=== PATIENT | female | born 1950 | race Caucasian/White ===

== ENCOUNTER → 2016-02-28 07:21 | Day surgery (SDC) | payer BC ==
[~2016-02-28 07:21] MED LIST: Acetaminophen TAB* 325 MG PO PRN; Buffered Lidocaine 1% SYR 3ML* 3 ML/SYR SYRINGE INTRADERM ONE; Buffered Lidocaine 1% SYR 3ML* 3 ML/SYR SYRINGE ONE; Cyclopentolate 1% OPTH.SOL* 2 ML BTL ONE; Flurbiprofen 0.03% OPTH.SOL* 2.5 ML BTL ONE; Lidocaine 1% MPF* 2 ML VIAL ONE; Lidocaine 2% EPI 1:200000 MPF* 20 ML VIAL ONE; Midazolam* 1 MG/ML 2 ML VIAL (2 MG) ONE; Midazolam* 1 MG/ML 5 ML VIAL (5 MG) ONE; Neomycin/Polymy/Dex OPTH.SUSP* MAXITROL 0.1% 5 ML ONE; Phenylephrine 2.5% OPTH.SOL* 2 ML BTL ONE; Povidone Iodine 5% OPTH* 30 ML BTL ONE; Proparacaine 0.5% OPHTH.SOL* 15 ML BTL ONE; acetaZOLAMIDE TAB* 250 MG ONE; fentaNYL* 50 MCG/ML 2 ML VIAL (100 MCG VIAL) ONE
[2016-02-28 09:57] VITALS: BP 128/82
--- NOTE | 2016-02-28 12:08 | OP ---
DATE OF OPERATION: 02/28/2016 - [facility] DATE OF : 1950. SURGEON: John Valdes M.D. PREOPERATIVE DIAGNOSIS: Cataract right eye. POSTOPERATIVE DIAGNOSIS: Cataract right eye. OPERATIVE PROCEDURE: Phacoemulsification right eye with IOL. DESCRIPTION OF PROCEDURE: The patient was brought to the operating room after being given 1/2% Alcaine with epinephrine drops in the preoperative area. The eye was prepped and draped in the usual sterile fashion. Sterile drape and eyelid speculum were placed. Again, topical 1/2% Alcaine with epinephrine was given. A paracentesis incision was made at the 9 o'clock position with the No.75 blade. Clear cornea incision 2.2 x 2.2-mm was created at the 12 o'clock position starting at the anterior limbus using the 2.2-mm keratome. The anterior chamber was irrigated with 0.4 mL of 1% non-preservative intracameral lidocaine and filled with DisCoVisc. A capsulorrhexis was completed using the cystotome and the Utrata forceps. Hydrodissection was performed with balanced salt solution. The lens nucleus was removed with the Phacoemulsification handpiece without incident. Cortex was removed with the irrigation-aspiration handpiece. The capsular bag was re-inflated using DisCoVisc and an [id number] implant was inserted with the shooter, oriented to the 87 degree axis. Horizontal reference luna were made with the patient in a seated position in the preoperative area. The irrigation-aspiration handpiece was used to remove all residual DisCoVisc. The eye was refilled with balanced salt solution and the wound checked and found to be watertight. Topical Maxitrol drops were given. [id number]/[facility] #: [id number] [facility]ITAL[facility]
== END | disposition home or self-care (01) ==
LOC: OREAST 07:21
PROVIDERS: ATTEND Specialist
DX: H25.811 Combined forms of age-related cataract, right eye (principal); J45.20 Mild intermittent asthma, uncomplicated
CPT/HCPCS: A9270-GY; J2250; J3010; V2787

== ENCOUNTER → 2016-03-06 08:22 | Day surgery (SDC) | payer BC ==
[~2016-03-06 08:22] MED LIST changes: -Acetaminophen TAB* 325 MG PO PRN; +Lidocaine 2% PF * 5 ML VIAL ONE; -Midazolam* 1 MG/ML 5 ML VIAL (5 MG) ONE; +Propofol* 10 MG/ML 20 ML BTL IV PUSH ONE
[2016-03-06 10:59] VITALS: BP 118/66
--- NOTE | 2016-03-06 11:20 | OP ---
DATE OF OPERATION: 03/06/2016. DATE OF : 1950. SURGEON: John Valdes M.D. PREOPERATIVE DIAGNOSIS: Cataract left eye. POSTOPERATIVE DIAGNOSIS: Cataract left eye. OPERATIVE PROCEDURE: Phacoemulsification left eye with IOL. PROCEDURE: The patient was brought to the operating room after being given 1/2% Alcaine with epinep hrine drops in the preoperative area. The eye was prepped and draped in the usual sterile fashion. Sterile drape and eyelid speculum were placed. Again, topical 1/2% Alcaine with epinephrine was gi stephen. A paracentesis incision was made at the 3 o'clock position with the No.75 blade. Clear cornea incision 2.2 x 2.2-mm was created at the 6 o'clock position starting at the anterior limbus using t he 2.2-mm keratome. The anterior chamber was irrigated with 0.4 mL of 1% non-preservative intracame ral lidocaine and filled with DisCoVisc. A capsulorrhexis was completed using the cystotome and the Utrata forceps. Hydrodissection was performed with balanced salt solution. The lens nucleus was re moved with the Phacoemulsification handpiece without incident. Cortex was removed with the irrigati on-aspiration handpiece. The capsular bag was re-inflated using DisCoVisc and an [id number] 18.5 implan t was inserted with the shooter. The irrigation-aspiration handpiece was used to remove all residua l DisCoVisc. The eye was refilled with balanced salt solution and the wound checked and found to be watertight. Topical Maxitrol drops were given. [id number]/[facility] #: [id number]
== END | disposition home or self-care (01) ==
LOC: OREAST 08:22
PROVIDERS: ATTEND Specialist
DX: H25.812 Combined forms of age-related cataract, left eye (principal); I10 Essential (primary) hypertension; J45.909 Unspecified asthma, uncomplicated; D64.9 Anemia, unspecified
CPT/HCPCS: A9270-GY; J2250; J2704; J3010; V2632

== ENCOUNTER 2016-08-29 00:49 | Emergency (ER) | payer BC ==
[2016-08-29] MEDS ORDERED: Ketorolac INJ* 60 MG/2 ML VIAL IM ONE (02:09)
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
[2016-08-29 06:25] VITALS: BP 148/77
--- NOTE | 2016-08-29 08:04 | RAD ---
HISTORY: Fall. History of right knee prosthesis COMPARISONS: January 27, 2015 VIEWS: 2, Frontal and lateral views of the right knee FINDINGS: BONE DENSITY: There is diffuse osteopenia. BONES: The patient is status post right knee arthroplasty. There is no hardware failure or osteolysis. There is remote posttraumatic deformity to the distal femur and mid tibia. JOINTS: The patient is status post right knee arthroplasty ALIGNMENT: There is no dislocation. SOFT TISSUES: Unremarkable. OTHER FINDINGS: None. IMPRESSION: 1. OSTEOPENIA. 2. STATUS POST RIGHT KNEE ARTHROPLASTY. 3. NO ACUTE OSSEOUS INJURY. THE DEGREE OF OSTEOPENIA MAY MAKE A NONDISPLACED FRACTURE RADIOGRAPHICALLY OCCULT. IF SYMPTOMS PERSIST, RECOMMEND REPEAT IMAGING.
--- NOTE | 2016-08-29 08:05 | RAD ---
HISTORY: Fall, right leg pain COMPARISONS: None VIEWS: 2, Frontal and lateral views of the right foreleg FINDINGS: BONE DENSITY: There is diffuse osteopenia. BONES: The patient is status post right knee arthroplasty. There is remote post right deformity to the tibial diaphysis. There is no acute displaced fracture. JOINTS: The patient is status post right knee arthroplasty. There is osteoarthritis of the ankle ALIGNMENT: There is no dislocation. SOFT TISSUES: Unremarkable. OTHER FINDINGS: None. IMPRESSION: 1. OSTEOARTHRITIS. 2. OSTEOPENIA. 3. NO ACUTE OSSEOUS INJURY. THE DEGREE OF OSTEOPENIA MAY MAKE A NONDISPLACED FRACTURE RADIOGRAPHICALLY OCCULT. IF SYMPTOMS PERSIST, RECOMMEND REPEAT IMAGING.
--- NOTE | 2016-08-29 10:51 | RAD ---
Indication: Fall, inability to ambulate. CT of the right lower extremity was obtained from the hip to the ankle. The iliac crest and sacroiliac joints are grossly unremarkable. Patient is status post right hip prosthesis. No definite fracture is noted. No loosening of the hardware is noted. There is diffuse osteopenia noted. Deformity of the distal femur is noted. Overriding of the fracture fragment is noted. There is diffuse osteopenia in the tibial shaft with deformity of the proximal tibia. The fibula is intact. No fracture is identified. No evidence of soft tissue hematoma is noted. IMPRESSION: The right lower extremity demonstrates a right hip prosthesis as well as a right knee prosthesis with diffuse osteopenia in a deformed right distal femur. This appears to be healing from a prior fracture. Diffuse osteopenia is noted in the tibia as well.
== END 2016-08-29 06:24 | disposition home or self-care (01) ==
LOC: ED 00:49
DX: S80.12XA Contusion of left lower leg, initial encounter (principal); W19.XXXA Unspecified fall, initial encounter; Y93.9 Activity, unspecified; Y92.9 Unspecified place or not applicable
CPT/HCPCS: 96372; 99284; J1885

== ENCOUNTER 2016-09-10 14:05 | Emergency (ER) | payer BC ==
[2016-09-10 16:39] VITALS: BP 155/84
--- NOTE | 2016-09-10 16:58 | RAD ---
INDICATION: RIGHT lower extremity pain and edema following recent injury. Ecchymosis distal medial thigh and near medial ankle. COMPARISON: August 29, 2016 CT RIGHT lower extremity. TECHNIQUE: Llanos scale, color Doppler, and spectral analysis of the deep veins of the RIGHT lower extremity. Vessel compression, phasicity, and augmentation assessed. REPORT: The RIGHT common femoral, great saphenous, profunda femoral, femoral, popliteal, peroneal, and posterior tibial veins are patent. RIGHT knee joint effusion noted as on August 29, 2016 CT. Patency of the LEFT common femoral vein documented. IMPRESSION: 1. No evidence for RIGHT lower extremity deep venous thrombosis. 2. Complex RIGHT knee joint effusion corresponding with lipohemarthrosis on August 29, 2016 CT without significant change in volume.. Examination reviewed with Dr. Valentino 09/10/2016 4:54 PM EDT
[2016-09-10] MEDS ORDERED: Morphine INJ* 2 MG/ML 1 ML SYRINGE IV ONE (18:10)
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
== END 2016-09-10 19:02 | disposition short-term general hospital (02) ==
LOC: UCEAST 14:05
DX: M97.01XA Periprosthetic fracture around internal prosthetic right hip joint, initial encounter (principal); Z96.643 Presence of artificial hip joint, bilateral; Z87.891 Personal history of nicotine dependence; M25.461 Effusion, right knee
CPT/HCPCS: 96374; 99213; G0463; J2270

== ENCOUNTER 2016-09-10 19:12 | Emergency (ER) | payer BC ==
[2016-09-10] MEDS ORDERED: HYDROmorphone* 1 MG/ML 1 ML SYR IV ONE (19:24)
[2016-09-10] MEDS ORDERED: Ondansetron INJ* 2 MG/ML VIAL IV ONE (19:24)
[2016-09-10] MEDS ORDERED: NS 0.9% 1000 ML* 1,000 ML IV SCH (19:30)
[2016-09-10 20:15] LABS: Hematocrit 40 % (35-47); Hemoglobin 13.2 g/dl (12.0-16.0); Mean Corpuscular HGB Conc 33 g/dl (31-36); Mean Corpuscular Hemoglobin 34 pg (27-31); Mean Corpuscular Volume 105 fL (80-97); Mean Platelet Volume 7 um3 (7.4-10.4); Red Blood Count 3.84 10^6/ul (4.0-5.4); Red Cell Distribution Width 15 % (10.5-15); White Blood Count 7.1 10^3/ul (3.5-10.8)
[2016-09-10 20:42] LABS: BUN/Creatinine Ratio 30.6 (8-20); C Reactive Protein 11.09 mg/L (< 5.00); Calcium 9.9 mg/dL (8.6-10.3); EGFR African American 233.4 (>60); EGFR Non-African American 181.5 (>60); Globulin 2.7 g/dL (2-4); Potassium 3.4 mmol/L (3.5-5.0); Total Bilirubin 0.8 mg/dL (0.2-1.0); Total Protein 6.7 g/dL (6.4-8.9)
--- NOTE | 2016-09-10 21:30 | RAD ---
Indication: RIGHT knee pain. Complex joint effusion on ultrasound of the same date. Comparison: August 29, 2016 CT and radiographs. Technique: AP, tunnel, crosstable lateral, sunrise views RIGHT knee Report: Total knee prosthesis in place. In addition to a healed distal metaphyseal fracture there is an acute or subacute fracture with cortical disruption at the medial distal metaphysis at the interface with the femoral component of the prosthesis. No radiographic evidence for loosening of the femoral or tibial prosthesis components. Healed fracture at the diaphysis of the tibia. Bone density appears decreased throughout. Small suprapatellar joint effusion. Anterior and medial soft tissue swelling. IMPRESSION: Medial distal metaphyseal periprosthetic fracture of the RIGHT femur without radiographic evidence for healing response. Conspicuity of the fracture on the previous CT limited due to confounding talus from the healed fracture and artifact from the prosthetic components on CT. Predisposing decreased bone density. Small joint effusion.
[2016-09-10] MEDS ORDERED: oxyCODONE TAB* 5 MG TAB PO ONE (23:15)
--- NOTE | 2016-09-10 23:25 | ED ---
Tommy Lee Benjamin, scribed for Mateusz Salvador MD on 09/10/16 at 1944 . Lower Extremity - HPI Summary HPI Summary: 65yo female c/o right leg and knee pain. Pt injured her right leg after a mechanical fall on 08/29, and went to ED later that day. Imaging results at the time have r/o fx and pt was dced home but pts pain has been continuing so I went to earlier today. Imaging at reports right leg Fx. Pt is sent from to ED to See Dr. Aponte here. Pt reports pain in all right leg, from knee down but point most pain in the right knee. Hx of right knee replacement 1.5 year ago. - History of Current Complaint Chief Complaint: EDExtremityLower Stated Complaint: RT KNEE INJURY/SENT FROM [facility] Time Seen by Provider: 09/10/16 19:16 Hx Obtained From: Patient Mechanism Of Injury: Fall From A Standing Position Onset of Pain: Post Accident Onset/Duration: Still Present Severity Initially: Moderate Severity Currently: Moderate Pain Intensity: 8 Pain Scale Used: 0-10 Numeric Timing: Constant Location: Is Discrete @ - right leg, from knee down Associated Signs And Symptoms: Positive: Swelling, Knee Pain Aggravating Factor(s): Standing, Ambulation, Movement, Weight Bearing Alleviating Factor(s): Rest, Elevation, Ice Able to Bear Weight: No - Allergies/Home Medications Allergies/Adverse Reactions: Allergies Allergy/AdvReac Type Severity Reaction Status Date / Time Codeine AdvReac Severe SYNCOPE/black Verified 09/10/16 14:24 out INSECT Allergy Unknown Uncoded 09/10/16 14:24 Reaction Details PMH/Surg Hx/FS Hx/Imm Hx Endocrine/Hematology History: Reports: Hx Thyroid Disease - GOITER STATES IS MONITORED YEARLY Denies: Hx Diabetes, Hx Anemia Cardiovascular History: Denies: Hx Hypertension Respiratory History: Reports: Hx Asthma - spiriva and symbicort Denies: Hx Chronic Obstructive Pulmonary Disease (COPD) GI History: Denies: Hx Jaundice, Hx Ulcer Musculoskeletal History: Reports: Hx Osteoporosis, Other Musculoskeletal History - RIGHT LEG- SEVERAL SURGERIES- FROM ACCIDENT IN 1999 Sensory History: Reports: Hx Cataracts - BILATERAL Denies: Hx Contacts or Glasses, Hx Hearing Aid Opthamlomology History: Reports: Hx Cataracts - BILATERAL Denies: Hx Contacts or Glasses Psychiatric History: Reports: Hx Anxiety - ON MEDICATION FOR, Hx Depression - ON MEDICATION FOR Denies: Hx Eating Disorder, Hx of Violent Episodes Against Others - Surgical History Surgery Procedure, Year, and Place: RIGHT HIP/FEMUR/KNEE- X 12 SURGERIES. LEFT HIP HEMIARTHROPLAST. TOTAL RIGHT HIP REPLACEMENT. RIGHT WRIST Hx Anesthesia Reactions: No Infectious Disease History: No Infectious Disease History: Denies: Hx Clostridium Difficile, Hx Hepatitis, Hx Human Immunodeficiency Virus (HIV), Hx of Known/Suspected MRSA, Hx Shingles, Hx Tuberculosis, Hx Known/ Suspected VRE, Hx Known/Suspected VRSA, History Other Infectious Disease, Traveled Outside the [place] in Last 30 Days - Family History Known Family History: Positive: None Negative: Cardiac Disease, Hypertension - Social History Occupation: Retired Lives: Alone Alcohol Use: Occasionally Hx Substance Use: No Substance Use Type: Reports: None Hx Tobacco Use: Yes Smoking Status (MU): Former Smoker Type: Cigarettes Amount Used/How Often: 3 CIGARETTES PER DAY X 5 YEARS Have You Smoked in the Last Year: No Review of Systems Constitutional: Negative Eyes: Negative ENT: Negative Cardiovascular: Negative Respiratory: Negative Gastrointestinal: Negative Genitourinary: Negative Positive: Arthralgia - right leg pain, Edema - right knee swelling Skin: Negative Neurological: Negative Psychological: Normal All Other Systems Reviewed And Are Negative: Yes Physical Exam Triage Information Reviewed: Yes Vital Signs On Initial Exam: Initial Vitals Temp Pulse Resp BP Pulse Ox 98.8 F 96 16 140/76 95 09/10/16 19:14 09/10/16 19:14 09/10/16 19:14 09/10/16 19:14 09/10/16 19:14 Vital Signs Reviewed: Yes Appearance: Positive: Well-Appearing, Well-Nourished, Pain Distress - mild Skin: Positive: Warm, Skin Color Reflects Adequate Perfusion, Dry, Erythema @ - right knee Head/Face: Positive: Normal Head/Face Inspection Eyes: Positive: EOMI, [place] ENT: Positive: Normal ENT inspection Neck: Positive: Supple, Nontender Respiratory/Lung Sounds: Positive: Clear to Auscultation, Breath Sounds Present Cardiovascular: Positive: RRR Abdomen Description: Positive: Nontender, Soft Bowel Sounds: Positive: Present Musculoskeletal: Positive: Strength/ROM Intact, Other - right knee swollen erythematous, not hot to touch, tender to palpation Diagnostics - Vital Signs Vital Signs Temp Pulse Resp BP Pulse Ox 07/25/17 19:36 16 09/10/16 19:21 101 96 09/10/16 19:14 98.8 F 96 16 140/76 95 - Laboratory Lab Results: Lab Results 09/10/16 09/10/16 09/10/16 Range/Units 20:05 20:05 20:05 WBC 7.1 (3.5-10.8) 10^3/ul RBC 3.84 L (4.0-5.4) 10^6/ul Hgb 13.2 (12.0-16.0) g/dl Hct 40 (35-47) % MCV 105 H (80-97) fL MCH 34 H (27-31) pg MCHC 33 (31-36) g/dl RDW 15 (10.5-15) % Plt Count 289 (150-450) 10^3/ul MPV 7 L (7.4-10.4) um3 Neut % (Auto) 65.0 (38-83) % Lymph % (Auto) 16.7 L (25-47) % Butler % (Auto) 17.0 H (1-9) % Eos % (Auto) 0.5 (0-6) % Baso % (Auto) 0.8 (0-2) % Absolute Neuts (auto) 4.6 (1.5-7.7) 10^3/ul Absolute Lymphs (auto) 1.2 (1.0-4.8) 10^3/ul Absolute Monos (auto) 1.2 H (0-0.8) 10^3/ul Absolute Eos (auto) 0 (0-0.6) 10^3/ul Absolute Basos (auto) 0.1 (0-0.2) 10^3/ul Absolute Nucleated RBC 0 10^3/ul Nucleated RBC % 0 APTT 33.0 (26.0-36.3) seconds Sodium 136 (133-145) mmol/L Potassium 3.4 L (3.5-5.0) mmol/L Chloride 101 (101-111) mmol/L Carbon Dioxide 29 (22-32) mmol/L Anion Gap 6 (2-11) mmol/L BUN 11 (6-24) mg/dL Creatinine 0.36 L (0.51-0.95) mg/dL Est GFR ( Amer) 233.4 (>60) Est GFR (Non-Af Amer) 181.5 (>60) BUN/Creatinine Ratio 30.6 H (8-20) Glucose 124 H (70-100) mg/dL Lactic Acid (0.5-2.0) mmol/L Calcium 9.9 (8.6-10.3) mg/dL Total Bilirubin 0.80 (0.2-1.0) mg/dL AST 25 (13-39) U/L ALT 27 (7-52) U/L Alkaline Phosphatase 83 (34-104) U/L C-Reactive Protein 11.09 H (< 5.00) mg/L Total Protein 6.7 (6.4-8.9) g/dL Albumin 4.0 (3.2-5.2) g/dL Globulin 2.7 (2-4) g/dL Albumin/Globulin Ratio 1.5 (1-3) 07/25/17 Range/Units 20:05 WBC (3.5-10.8) 10^3/ul RBC (4.0-5.4) 10^6/ul Hgb (12.0-16.0) g/dl Hct (35-47) % MCV (80-97) fL MCH (27-31) pg MCHC (31-36) g/dl RDW (10.5-15) % Plt Count (150-450) 10^3/ul MPV (7.4-10.4) um3 Neut % (Auto) (38-83) % Lymph % (Auto) (25-47) % Butler % (Auto) (1-9) % Eos % (Auto) (0-6) % Baso % (Auto) (0-2) % Absolute Neuts (auto) (1.5-7.7) 10^3/ul Absolute Lymphs (auto) (1.0-4.8) 10^3/ul Absolute Monos (auto) (0-0.8) 10^3/ul Absolute Eos (auto) (0-0.6) 10^3/ul Absolute Basos (auto) (0-0.2) 10^3/ul Absolute Nucleated RBC 10^3/ul Nucleated RBC % APTT (26.0-36.3) seconds Sodium (133-145) mmol/L Potassium (3.5-5.0) mmol/L Chloride (101-111) mmol/L Carbon Dioxide (22-32) mmol/L Anion Gap (2-11) mmol/L BUN (6-24) mg/dL Creatinine (0.51-0.95) mg/dL Est GFR ( Amer) (>60) Est GFR (Non-Af Amer) (>60) BUN/Creatinine Ratio (8-20) Glucose (70-100) mg/dL Lactic Acid 0.7 (0.5-2.0) mmol/L Calcium (8.6-10.3) mg/dL Total Bilirubin (0.2-1.0) mg/dL AST (13-39) U/L ALT (7-52) U/L Alkaline Phosphatase (34-104) U/L C-Reactive Protein (< 5.00) mg/L Total Protein (6.4-8.9) g/dL Albumin (3.2-5.2) g/dL Globulin (2-4) g/dL Albumin/Globulin Ratio (1-3) Result Diagrams: 09/10/16 20:05 09/10/16 20:05 Lab Statement: Any lab studies that have been ordered have been reviewed, and results considered in the medical decision making process. - Radiology Right Knee XR Xray Interpretation: Positive (See Comments) - IMPRESSION: Medial distal metaphyseal periprosthetic fracture of the RIGHT femur without radiographic evidence for healing response. Conspicuity of the fracture on the previous CT limited due to confounding talus from the healed fracture and artifact from the prosthetic components on CT. Predisposing decreased bone density. Small joint effusion. Radiology Interpretation Completed By: Radiologist Right Ankle XR Radiology Interpretation Completed By: Radiologist - See [place]. Report pending at this time. right lower leg XR Radiology Interpretation Completed By: Radiologist - See [place]. Report pending at this time. Lower Extremity Course/Dx - Course Course Of Treatment: Discussed with Dr. Hansen (Ortho) at 2223. NO CRITICAL CARE TIME. DISCUSSED WITH DR HANSEN; HE RECOMMENDS KNEE IMMOBILIZER AND USE OF WALKER, MINIMIZE WEIGHT BEARING. NOT SURGICAL AT THIS TIME. F/U WITH ORTHOPEDICS. - Diagnoses Provider Diagnoses: Fracture of distal end of right femur Discharge - Discharge Plan Condition: Stable Disposition: HOME Prescriptions: oxyCODONE TAB* [Roxycodone TAB 5 mg*] 5 mg PO Q4H PRN #20 tab MDD 6 PRN Reason: Pain Patient Education Materials: Leg Fracture (ED), Knee Immobilizer (ED) Referrals: Hector Echols MD [Primary Care Provider] - [facility],Seth Chambers [Medical Doctor] - Additional Instructions: FOLLOW UP WITH YOUR ORTHOPEDICS, DR JC. GIVE HIM A CALL TOMORROW FOR FOLLOW UP. USE YOUR WALKER AND MINIMIZE WEIGHT BEARING. RETURN TO THE EMERGENCY DEPARTMENT FOR ANY WORSENING OF YOUR CONDITION OR QUESTIONS OR CONCERNS. The documentation as recorded by the Tommy fajardo Benjamin accurately reflects the service I personally performed and the decisions made by me, Mateusz Salvador MD.
[2016-09-10 23:49] VITALS: BP 150/75
--- NOTE | 2016-09-11 07:19 | RAD ---
INDICATION: Right ankle pain. TECHNIQUE: 3 views of the right ankle were obtained. FINDINGS: The bones are grossly osteoporotic. No fracture is seen. Joint spaces appear maintained. There is a small lucent lesion in the distal diaphysis of the tibia with a sclerotic margin likely incidental. IMPRESSION: 1. NO EVIDENCE FOR FRACTURE. 2. THE BONES APPEAR OSTEOPOROTIC.
--- NOTE | 2016-09-11 07:21 | RAD ---
INDICATION: Right lower leg pain. TECHNIQUE: 2 views of the right lower leg were obtained. FINDINGS: The bones are grossly osteoporotic. The patient is status post total knee replacement surgery. There is an old healed fracture of the mid diaphysis of the tibia. No acute fracture is seen. IMPRESSION: 1. POSTSURGICAL AND POSTTRAUMATIC CHANGES, NO EVIDENCE FOR ACUTE FRACTURE. 2. THE BONES APPEAR OSTEOPOROTIC.
== END 2016-09-11 00:29 | disposition home or self-care (01) ==
LOC: ED 19:12
DX: S72.401A Unspecified fracture of lower end of right femur, initial encounter for closed fracture (principal); F32.9 Major depressive disorder, single episode, unspecified; F41.9 Anxiety disorder, unspecified; W19.XXXA Unspecified fall, initial encounter; Y92.9 Unspecified place or not applicable; Z88.5 Allergy status to narcotic agent; E04.9 Nontoxic goiter, unspecified; J45.909 Unspecified asthma, uncomplicated; Z87.891 Personal history of nicotine dependence
CPT/HCPCS: 36415; 80053; 83605; 85025; 85730; 86140; 96360; 96374; 96375; 99282; A9270-GY; J1170; J2405

== ENCOUNTER 2016-09-29 18:37 | Emergency (ER) | payer BC ==
[2016-09-29] MEDS ORDERED: oxyCODONE/Acetamin 5/325 MG* TAB PO ONE ×2 (19:35→21:05)
--- NOTE | 2016-09-29 19:43 | ED ---
Lower Extremity - HPI Summary HPI Summary: Pt here w/ Rt knee pain since fall today. Was using a walker to go outside and misjudged a ledge on her step outdoors - fell to the Rt. No other injuries/ pain. Can move her ankle and toes as well as hip w/o difficulty. Denies numbness , tingling, weakness. She has a fracture of her distal Rt femur which she reports occurred on 08/29/2016. She was seen again on 09/10/2016 and dx'd w/ fx. She was placed in a knee immobilizer and given a walker. Reports she was given no pain medications but has been taking aleve for swelling - reports swelling and bruising is much better since initial injury. Had f/u w/ Dr. Huerta, her ortho surgeon who has repaired many pathologies of her Rt LE including but not limited to a Rt hip replacement, Rt knee replacement, and a crushed bone after a hiking injury - she has a good amount of hardware present. She reports a h/o osteoporosis and takes a medication for this - admits to fracturing easily. - History of Current Complaint Chief Complaint: EDExtremityLower Stated Complaint: FALL Time Seen by Provider: 09/29/16 19:17 Hx Obtained From: Patient Pain Intensity: 8 - Allergies/Home Medications Allergies/Adverse Reactions: Allergies Allergy/AdvReac Type Severity Reaction Status Date / Time Codeine AdvReac Severe SYNCOPE/black Verified 09/10/16 14:24 out INSECT Allergy Unknown Uncoded 09/10/16 14:24 Reaction Details PMH/Surg Hx/FS Hx/Imm Hx Previously Healthy: Yes Endocrine/Hematology History: Reports: Hx Thyroid Disease - GOITER STATES IS MONITORED YEARLY Denies: Hx Diabetes, Hx Anemia Cardiovascular History: Denies: Hx Hypertension Respiratory History: Reports: Hx Asthma - spiriva and symbicort Denies: Hx Chronic Obstructive Pulmonary Disease (COPD) GI History: Denies: Hx Jaundice, Hx Ulcer Musculoskeletal History: Reports: Hx Osteoporosis, Other Musculoskeletal History - RIGHT LEG- SEVERAL SURGERIES- FROM ACCIDENT IN 1999 Sensory History: Reports: Hx Cataracts - BILATERAL Denies: Hx Contacts or Glasses, Hx Hearing Aid Opthamlomology History: Reports: Hx Cataracts - BILATERAL Denies: Hx Contacts or Glasses Psychiatric History: Reports: Hx Anxiety - ON MEDICATION FOR, Hx Depression - ON MEDICATION FOR Denies: Hx Eating Disorder, Hx of Violent Episodes Against Others - Surgical History Surgery Procedure, Year, and Place: RIGHT HIP/FEMUR/KNEE- X 12 SURGERIES. LEFT HIP HEMIARTHROPLAST. TOTAL RIGHT HIP REPLACEMENT. RIGHT WRIST Hx Anesthesia Reactions: No Infectious Disease History: No Infectious Disease History: Denies: Hx Clostridium Difficile, Hx Hepatitis, Hx Human Immunodeficiency Virus (HIV), Hx of Known/Suspected MRSA, Hx Shingles, Hx Tuberculosis, Hx Known/ Suspected VRE, Hx Known/Suspected VRSA, History Other Infectious Disease, Traveled Outside the [place] in Last 30 Days - Family History Known Family History: Positive: Diabetes Negative: Cardiac Disease, Hypertension - Social History Occupation: Unemployed Lives: Alone Alcohol Use: Daily Alcohol Amount: "glass of wine with dinner" Hx Substance Use: No Substance Use Type: Reports: None Hx Tobacco Use: Yes Smoking Status (MU): Former Smoker Type: Cigarettes Amount Used/How Often: 3 CIGARETTES PER DAY X 5 YEARS Have You Smoked in the Last Year: No Review of Systems Negative: Chest Pain Negative: Shortness Of Breath Negative: Abdominal Pain, Nausea Positive: no symptoms reported Musculoskeletal: Other - see HPI Skin: Other - see HPI Neurological: Negative Psychological: Normal All Other Systems Reviewed And Are Negative: Yes Physical Exam Triage Information Reviewed: Yes Vital Signs On Initial Exam: Initial Vitals Temp Pulse Resp BP Pulse Ox 99 F 112 18 118/67 94 09/29/16 18:42 09/29/16 18:42 09/29/16 18:42 09/29/16 18:42 09/29/16 18:42 Vital Signs Reviewed: Yes Appearance: Positive: Well-Appearing, No Pain Distress - at rest, Thin Eyes: Positive: EOMI ENT: Positive: Hearing grossly normal Respiratory/Lung Sounds: Positive: Breath Sounds Present Cardiovascular: Positive: Pulses are Symmetrical in both Upper and Lower Extremities Musculoskeletal: Positive: Pain @ - Rt knee w/ edema and limited ROM d/t pain; moving ankle, toes and hip well here Neurological: Positive: Normal, Sensory/Motor Intact, Alert, Oriented to Person Place, Time Psychiatric: Positive: Normal Diagnostics - Vital Signs Vital Signs Temp Pulse Resp BP Pulse Ox 09/29/16 18:42 99 F 112 18 118/67 94 - Laboratory Lab Statement: Any lab studies that have been ordered have been reviewed, and results considered in the medical decision making process. Lower Extremity Course/Dx - Course Course Of Treatment: Pt here w/ fall s/p distal femur fx - XR report indicates no change compared to previous. Advise continued care of knee w/ immobilizer, walker and f/u w/ ortho as advised. - Diagnoses Provider Diagnoses: Fall from standing, Right knee pain Discharge - Discharge Plan Condition: Stable Disposition: HOME Patient Education Materials: Leg Fracture (ED) Referrals: [facility],Seth Chambers [Medical Doctor] - Additional Instructions: Rest, ice, elevate Keep knee in immobilizer and use walker as directed Follow-up with Dr. Huerta, your orthopedic surgeon, as recommended. You may call Friday if pain persists or worsen to be seen sooner due to recent fall. *If you develop weakness, numbness or skin discoloration with coolness/heat, return to ED
--- NOTE | 2016-09-29 20:35 | RAD ---
Indication: Fall, leg pain. 4 views of the right knee are reviewed. Comparison is made with previous exam dated September 10, 2016. Again noted is a periprosthetic fracture involving the medial femoral condyle. This appears to be similar to that seen on September 10, 2016. There is callus formation noted. Overall appearance does not appear to be significantly changed. IMPRESSION: Healing fracture of the distal femur. There is periprosthetic fracture involving the medial femoral condyle at the metaphysis however this was present previously and has not significantly changed. Projections are somewhat limited.
[2016-09-29 22:05] VITALS: BP 110/76
== END 2016-09-29 22:03 | disposition home or self-care (01) ==
LOC: ED 18:37
DX: M25.561 Pain in right knee (principal); Z91.81 History of falling; Z87.891 Personal history of nicotine dependence; Z87.09 Personal history of other diseases of the respiratory system
CPT/HCPCS: 99282; A9270-GY

== ENCOUNTER 2017-04-29 00:19 | Inpatient (IN) | payer MEDICARE, BC ==
[2017-04-29] MEDS ORDERED: oxyCODONE/Acetamin 5/325 MG* TAB PO ONE (00:46)
--- NOTE | 2017-04-29 01:06 | ED ---
Lower Extremity - HPI Summary HPI Summary: 66-year-old female presents with right lower leg pain today. States she has a history of falls. She has not followed up with her doctor about the falls. States feels a little unsteady when walks. States she fell and landed on her right leg. She has a history of multiple fractures to her right leg. She has a knee replacement of her right knee. Patient has history of edema or right leg. She states that she was unable to get up off the floor for 4 hours. She was able to scoot to the phone and called the ambulance. She lives alone at home. She denies any numbness or tingling. She has pain and ecchymosis of right mendoza. She denies any chest or shortness breath. She denies any head injury injury. She denies any nausea vomiting. She denies any loss consciousness. She has not taken anything for her pain. She denies any hip pain. She has history of osteoporesis. She is not on blood thinners. initially leg injury was 2003 from rock climbing accident and has multiple surgeries as tried to avoid replacement of hip and knee. - History of Current Complaint Chief Complaint: EDExtremityLower Stated Complaint: FALL Time Seen by Provider: 04/29/17 00:33 Pain Intensity: 5 - Allergies/Home Medications Allergies/Adverse Reactions: Allergies Allergy/AdvReac Type Severity Reaction Status Date / Time codeine Allergy See Comment Verified 04/29/17 02:13 INSECT Allergy Unknown Uncoded 09/10/16 14:24 Reaction Details PMH/Surg Hx/FS Hx/Imm Hx Endocrine/Hematology History: Reports: Hx Thyroid Disease - GOITER STATES IS MONITORED YEARLY Denies: Hx Diabetes, Hx Anemia Cardiovascular History: Denies: Hx Hypertension Respiratory History: Reports: Hx Asthma - spiriva and symbicort Denies: Hx Chronic Obstructive Pulmonary Disease (COPD) GI History: Denies: Hx Jaundice, Hx Ulcer Musculoskeletal History: Reports: Hx Osteoporosis, Other Musculoskeletal History - RIGHT LEG- SEVERAL SURGERIES- FROM ACCIDENT IN 1999 Sensory History: Reports: Hx Cataracts - BILATERAL Denies: Hx Contacts or Glasses, Hx Hearing Aid Opthamlomology History: Reports: Hx Cataracts - BILATERAL Denies: Hx Contacts or Glasses Psychiatric History: Reports: Hx Anxiety - ON MEDICATION FOR, Hx Depression - ON MEDICATION FOR Denies: Hx Eating Disorder, Hx of Violent Episodes Against Others - Cancer History Hx Chemotherapy: No Hx Radiation Therapy: No - Surgical History Surgery Procedure, Year, and Place: RIGHT HIP/FEMUR/KNEE- X 12 SURGERIES. LEFT HIP HEMIARTHROPLAST. TOTAL RIGHT HIP REPLACEMENT. RIGHT WRIST Hx Anesthesia Reactions: No Infectious Disease History: No Infectious Disease History: Denies: Hx Clostridium Difficile, Hx Hepatitis, Hx Human Immunodeficiency Virus (HIV), Hx of Known/Suspected MRSA, Hx Shingles, Hx Tuberculosis, Hx Known/ Suspected VRE, Hx Known/Suspected VRSA, History Other Infectious Disease, Traveled Outside the [place] in Last 30 Days - Family History Known Family History: Positive: None, Diabetes Negative: Cardiac Disease, Hypertension - Social History Alcohol Use: Daily Alcohol Amount: "glass of wine with dinner" Hx Substance Use: No Substance Use Type: Reports: None Hx Tobacco Use: Yes Smoking Status (MU): Former Smoker Type: Cigarettes Amount Used/How Often: 3 CIGARETTES PER DAY X 5 YEARS Have You Smoked in the Last Year: No Review of Systems Negative: Fever Negative: Chest Pain Negative: Shortness Of Breath Positive: Myalgia - right lower leg All Other Systems Reviewed And Are Negative: Yes Physical Exam Triage Information Reviewed: Yes Vital Signs On Initial Exam: Initial Vitals Temp Pulse Resp BP Pulse Ox 99 F 93 20 145/119 95 04/29/17 00:27 04/29/17 00:27 04/29/17 00:27 04/29/17 00:04/29/17 00:27 Vital Signs Reviewed: Yes Appearance: Positive: Well-Appearing Skin: Positive: Warm, Dry, Other - ecchymosis to right mendoza Head/Face: Positive: Normal Head/Face Inspection, Other - no step off, racoon eyes, haskins sign Eyes: Positive: Normal, EOMI, [place], Conjunctiva Clear ENT: Positive: Normal ENT inspection, Pharynx normal, TMs normal Respiratory/Lung Sounds: Positive: Clear to Auscultation, Breath Sounds Present Cardiovascular: Positive: Normal, RRR Musculoskeletal: Positive: Strength/ROM Intact - right ankle, Limited @ - right knee, Other - nontender hips, tenderness to right lower mendoza, good pulses, sensation grossly intact, edema to right knee (chronic), Neurological: Positive: Sensory/Motor Intact, Alert, Oriented to Person Place, Time, CN Intact II-III Psychiatric: Positive: Normal Procedures - Splinting Location: right leg Hand-Made Type: orthoglass Splint: posterior long splint Pre-Proc Neuro Vasc Exam: normal Post-Proc Neuro Vasc Exam: normal Diagnostics - Vital Signs Vital Signs Temp Pulse Resp BP Pulse Ox 04/29/17 00:27 99 F 93 20 145/119 95 - Laboratory Result Diagrams: 04/29/17 01:33 04/29/17 01:33 Lab Statement: Any lab studies that have been ordered have been reviewed, and results considered in the medical decision making process. - Radiology leg Xray Interpretation: Positive (See Comments) - proximal tibia fracture below prothesis Radiology Interpretation Completed By: ED Physician chest Xray Interpretation: No Acute Changes Radiology Interpretation Completed By: ED Physician Lower Extremity Course/Dx - Course Course Of Treatment: 66-year-old female presents with right lower leg pain today. States she has a history of falls. She has not followed up with her doctor about the falls. States feels a little unsteady when walks. States she fell and landed on her right leg. She has a history of multiple fractures to her right leg. She has a knee replacement of her right knee. Patient has history of edema or right leg. She states that she was unable to get up off the floor for 4 hours. She was able to scoot to the phone and called the ambulance. She lives alone at home. She denies any numbness or tingling. She has pain and ecchymosis of right mendoza. She denies any chest or shortness breath. She denies any head injury injury. She denies any nausea vomiting. She denies any loss consciousness. She has not taken anything for her pain. She denies any hip pain. on exam ecchymosis to right mendoza. neurovascular intact. tenderness right leg. xray shows fracture distal to prothesis. spoke with dr kitchen who will admit for surgery. states to get CT and to and to place in posterior long leg. place in posterior long leg in greatest amount of extension could achieve. patient states at baseline is unable to complete extend leg. patient ETOH is 279 so will give banana bag. - Diagnoses Differential Diagnosis/HQI/PQRI: Positive: Fracture (Closed), Sprain, Strain Provider Diagnoses: Fracture of proximal end of tibia, Fall Discharge - Discharge Plan Condition: Stable Disposition: [facility]MITTED TO [facility]
[2017-04-29 01:47] LABS: ABS Basophils 0.1 10^3/ul (0-0.2); ABS Eosinophils 0 10^3/ul (0-0.6); ABS Lymphocytes 1.6 10^3/ul (1.0-4.8); ABS Monocytes 1.3 10^3/ul (0-0.8); ABS Neutrophils 6.7 10^3/ul (1.5-7.7); ABS Nucleated RBC 0 10^3/ul; Eosinophil % 0 % (0-6); Hematocrit 42 % (35-47); Hemoglobin 14.3 g/dl (12.0-16.0); Lymphocyte % 16.7 % (25-47); Mean Corpuscular HGB Conc 34 g/dl (31-36); Mean Corpuscular Hemoglobin 34 pg (27-31); Mean Corpuscular Volume 100 fL (80-97); Mean Platelet Volume 7 um3 (7.4-10.4); Nucleated Red Blood Cells % 0; Platelet Count 226 10^3/ul (150-450); Red Blood Count 4.19 10^6/ul (4.0-5.4); Red Cell Distribution Width 14 % (10.5-15); White Blood Count 9.7 10^3/ul (3.5-10.8)
--- OUTSIDE RECORDS SUMMARY | 2017-04-29 01:47 | XMS REPORT ---
:1950 External Reference #:[id number] Author Organization [facility] Address [address] [place] [address] Phone [phone] Care Team Providers Name Role Phone Hector Echols M.D. Primary Care Physician Unavailable Payers Type Date Identification Numbers Payment Provider Subscriber Medicare Primary Policy Number: [id number] Medicare - NGS Nayely Larsen PayID: [id number] [address] [place] [address] Medigap Part B Policy Number: [id number] BS [place] [employer] Nayely Larsen PayID: [id number] [address] [address] [place] [address] Problems Date Description Provider Status Onset: Pneumonia Active Note: frequent Onset: Tachycardia Active Onset: Osteoporosis Active Onset: Anxiety Active Onset: 03/28/2016 Vitreous opacities John Valdes M.D. Active Onset: 02/29/2016 Presence of intraocular lens John Valdes M.D. Active Onset: 01/30/2016 Combined form of senile cataract John Valdes M.D. 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 ETOH Use Occasionally consumes wine Smoking Patient has never smoked Recreational Drug Use Denies Drug Use Daily Caffeine Does Not Consume Caffeine very little Allergies, Adverse Reactions, Alerts Date Description Reaction Status Severity Comments 01/25/2016 Codeine active 01/25/2016 NKDA inactive Medications Medication Date Status Form Strength Qnty SIG Indications Ordering Provider Duloxetine HCL / Active Caps DR Part 60mg Unknown 0000 Spiriva 00/ Active Capsules 18mcg Unknown Handihaler 0000 Symbicort / Active Aerosol 80-4.5mcg/ Unknown 0000 Act Trazodone HCL / Active Tablets 50mg prn Unknown 0000 Oxycodone-Aceta / Active Tablets 5-325mg prn Unknown minophen 0000 Multi For Her / Active Tablets 1 tab po Unknown 0000 daily Calcium / Active Tablets 315-200mg- 1 tab po Unknown 0000 Unit daily Zinc / Active Capsules 1 tab po Unknown 0000 daily Vitamin B 12 / Active Tablets 50mg 1 tab po Unknown 0000 daily Vitamin B / Active Tablets Unknown Complex 0000 Magnesium / Active Tablets 250mg Unknown 0000 Folic Acid / Active Tablets 1mg Unknown 0000 Prolia / Active Solution 60mg/ml Unknown 0000 Artificial 03/06/ Hx Solution 1-0.3% as John J. Tears 2017 - needed Arleo, 04/23/ M.D. 2018 Ciprofloxacin /20/ Hx Solution 0.3% 10ml 1 drop John J. HCL 2016 - Left eye Arleo, 03/27/ 3 times M.D. 2017 a day Prednisolone 20/ Hx Suspension 1% 15ml 1 drop John J. Acetate 2016 - left eye Arleo, 03/27/ daily M.D. 2017 Ketorolac /20/ Hx Solution 0.4% 5ml 1 drop John J. Tromethamine 2015 - left eye Arleo, 03/27/ daily M.D. 2016 Results Description No Information Procedures Date CPT Code Description Status 03/06/2016 78576 Extracapsular Cataract Extraction W/Intraocular Lens Completed 02/28/2016 03866 Extracapsular Cataract Extraction W/Intraocular Lens Completed 02/06/2016 79617 Ophthalmic Biometry Completed 02/06/2016 05976 Computerized Corneal Topography Completed 01/30/2016 62734 Est Patient Comprehensive Exam Completed 04/23/2013 23026 Determination Of Refractive State Completed 04/23/2013 21503 Est Patient Comprehensive Exam Completed 01/16/2012 73893 Est Patient Comprehensive Exam Completed 11/27/2010 30361 New Patient Comprehensive Exam Completed 07/07/2007 16919 Determination Of Refractive State Completed 07/07/2007 22249 New Patient Comprehensive Exam Completed Encounters Type Date Location Provider CPT E/M Dx Office Visit 02/06/2016 John Valdes MD, John Valdes, [address] H25.811 2:15p eliazar [place] H25.812 Office Visit 03/16/2012 12:30p John Valdes MD, John Valdes, [address] 366.16 eliazar [place] Plan of Care 04/24/2017 - John Valdes M.D.H43.393 Other vitreous opacities, bilateralComments:Smoking can increase the risk of developing or worsening any eye related disease, as well as affect your overall health. If you are a smoker , we strongly recommend that you quit.If you are not a smoker, we strongly recommend that you do not start. You have Vitreous Floaters. If you have any changed in your floaters or flashing lights, please contact this office.Follow up:2 Year Follow Up You can expect to have your eyes dilated at your next visit. If Dr. Valdes orders any additional testing, it may require extra time. We recommend that you bring sunglasses, as dilationdrops often make you light sensitive until they wear off. We always recommend you bring someone to drive you home if you are uncomfortable driving with your eyes dilated. If you have any questions before your next visit, feel free to call our office at [phone].R96.1 Presence of intraocular lensComments:The artificial lens implants in both eyes appear to be stable at this time.
[2017-04-29 03:25] LABS: Urine Appearance Clear; Urine Blood 1+ (Negative); Urine Color Yellow; Urine Ketones Trace (Negative); Urine Protein Negative (Negative); Urine Specific Gravity 1.014 (1.010-1.030); Urine Urobilinogen Negative (Negative)
[2017-04-29] MEDS: Thiamine IV* 100 MG, Folic Acid IV* 1 MG, Multiple Vitamin IV ADULT* 10 ML in NS 0.9% 1... IV ONE ×2 (03:54→04:39)
[2017-04-29] MEDS: Morphine INJ* 2 MG/ML 1 ML CARPUJECT IV PRN ×2 (05:58→08:59)
--- NOTE | 2017-04-29 08:17 | RAD ---
INDICATION: Right ankle and lower leg pain after a fall. COMPARISON: Right knee radiograph dated September 29, 2016 TECHNIQUE: 2 views of the right ankle and 4 views of the right lower leg were obtained. FINDINGS: There is a fracture below the tibial pole of the right knee prosthesis at the right tibial metaphysis exhibiting approximately 20 degrees of anterior angulation. The knee prosthesis appears to be malaligned on some radiographic views. There is bony proliferation over the distal right femur similar in appearance with previous knee radiograph. The bones of the ankle on these highly limited views appear to be intact and appropriately aligned. IMPRESSION: FRACTURE AT THE RIGHT TIBIAL PROXIMAL METAPHYSIS EXHIBITING 20 DEGREES OF ANTERIOR ANGULATION.
--- NOTE | 2017-04-29 08:18 | RAD ---
Indication: Postop RIGHT leg fracture. Comparison: April 03, 2015 Technique: Upright AP 0303 hours Report: Elevated lung volumes and mild prominence of the interstitial markings. No alveolar consolidation, focal pulmonary lesion, pleural effusion, pneumothorax. Accounting for mild rightward rotation the heart, central pulmonary vasculature, and mediastinal contours are unremarkable. Multiple healed bilateral rib fractures. Suggestion of an acute grossly nondisplaced fracture involving the LEFT 10th rib anterolaterally. IMPRESSION: 1. Grossly nondisplaced LEFT 10th rib fracture anterolaterally. Negative for pneumothorax. 2. Stigmata of chronic obstructive pulmonary disease. No acute cardiopulmonary process evident.
--- NOTE | 2017-04-29 08:26 | RAD ---
Indication: RIGHT lower leg fracture. Multiple previous fractures. Prosthetic RIGHT knee. Comparison: April 29, 2017 RIGHT lower leg radiographs. Technique: Noncontrast CT RIGHT lower leg. Multiplanar reformation and 3-D osseous volume rendering. Report: Bone density is decreased throughout. Centered 2.5 cm distal to the stem of the tibial component of the knee prosthesis there is a minimally comminuted transverse fracture through the proximal diaphysis of the tibia with up to 0.8 cm posterior and lateral displacement. Minimal apex anterior angulation. The fracture plane does not appear to extend to the socket for the prosthetic component. There is an adjacent mildly comminuted fracture at the proximal metaphysis through proximal diaphysis of the fibula with mild impaction. Healed fractures at the mid diaphysis of the fibula as well as at the distal femur noted. Moderate diffuse skeletal muscle atrophy. Infiltrative subcutaneous edema greatest along the medial aspect proximally. No loculated soft tissue plane hematoma evident. Knee joint effusion noted without gross fat fluid level. IMPRESSION: Nonarticular tibia and fibula fractures as described.
[2017-04-29] MEDS ORDERED: Thiamine IV* 100 MG/ML 2 ML VIAL IM ONE (09:27)
[2017-04-29] MEDS ORDERED: Thiamine IV* 100 MG/ML 2 ML VIAL IV ONE (09:27)
[2017-04-29] MEDS ORDERED: LORazepam INJ* 2 MG/ML 1 ML VIAL ONE (09:52)
[2017-04-29] MEDS ORDERED: LORazepam INJ* 2 MG/ML 1 ML VIAL IM SCH (10:00)
[2017-04-29] MEDS: LORazepam INJ* 2 MG/ML 1 ML VIAL IV PUSH SCH ×4 (12:00→23:37)
[2017-04-29] MEDS ORDERED: MDI INH PRN (12:13)
[2017-04-29] MEDS ORDERED: FORMOTE INH PRN (12:13)
[2017-04-29] MEDS ORDERED: BUDESONIDE INH PRN (12:13)
[2017-04-29] MEDS ORDERED: Adenosine* 3 MG/ML VIAL IV PUSH ONE ×2 (13:16→13:57)
[2017-04-29] MEDS ORDERED: Adenosine* 3 MG/ML VIAL ONE ×2 (13:43→13:57)
[2017-04-29] MEDS ORDERED: Metoprolol Tartrate IV* 1 MG/ML 5 ML VIAL IV ONE (14:32)
--- NOTE | 2017-04-29 14:52 | PN ---
Progress Note - Progress Note Date of Service: 04/29/17 SOAP: Subjective: []Patient seen at bedside. She has 5/10 RLE pain, which is improved from last night. She denies any leg numbness, CP, SOB, dizziness or nausea. She is on WAM protocol. She has been tachycardic into the 170-180's. Objective: [] Vital Signs Temp 97.8 F 04/29/17 13:41 Pulse 180 04/29/17 13:41 Resp 15 04/29/17 13:45 BP 131/88 04/29/17 14:07 Pulse Ox 96 04/29/17 13:41 Intake & Output 04/28/17 04/29/17 04/29/17 18:59 06:59 18:59 Intake Total 0 805 Output Total 300 Balance 0 505 Weight 135 lb Intake: IV Fluids 805 NS (0.9%) 0 Oral 0 0 Output: Urine 300 Laboratory Last Values WBC 9.7 10^3/ul (3.5-10.8) 04/29/17 01:33 RBC 4.19 10^6/ul (4.0-5.4) 04/29/17 01:33 Hgb 14.3 g/dl (12.0-16.0) 04/29/17 01:33 Hct 42 % (35-47) 04/29/17 01:33 MCV 100 fL (80-97) H 04/29/17 01:33 MCH 34 pg (27-31) H 04/29/17 01:33 MCHC 34 g/dl (31-36) 04/29/17 01:33 RDW 14 % (10.5-15) 04/29/17 01:33 Plt Count 226 10^3/ul (150-450) 04/29/17 01:33 MPV 7 um3 (7.4-10.4) L 04/29/17 01:33 Neut % (Auto) 69.4 % (38-83) 04/29/17 01:33 Lymph % (Auto) 16.7 % (25-47) L 04/29/17 01:33 [place] % (Auto) 13.1 % (0-7) H 04/29/17 01:33 Eos % (Auto) 0 % (0-6) 04/29/17 01:33 Baso % (Auto) 0.8 % (0-2) 04/29/17 01:33 Absolute Neuts (auto) 6.7 10^3/ul (1.5-7.7) 04/29/17 01:33 Absolute Lymphs (auto) 1.6 10^3/ul (1.0-4.8) 04/29/17 01:33 Absolute Monos (auto) 1.3 10^3/ul (0-0.8) H 04/29/17 01:33 Absolute Eos (auto) 0 10^3/ul (0-0.6) 04/29/17 01:33 Absolute Basos (auto) 0.1 10^3/ul (0-0.2) 04/29/17 01:33 Absolute Nucleated RBC 0 10^3/ul 04/29/17 01:33 Nucleated RBC % 0 04/29/17 01:33 Sodium 139 mmol/L (133-145) 04/29/17 01:33 Potassium 3.8 mmol/L (3.5-5.0) 04/29/17 01:33 Chloride 105 mmol/L (101-111) 04/29/17 01:33 Carbon Dioxide 21 mmol/L (22-32) L 04/29/17 01:33 Anion Gap 13 mmol/L (2-11) H 04/29/17 01:33 BUN 8 mg/dL (6-24) 04/29/17 01:33 Creatinine 0.33 mg/dL (0.51-0.95) L 04/29/17 01:33 Est GFR ( Amer) 257.2 (>60) 04/29/17 01:33 Est GFR (Non-Af Amer) 200.0 (>60) 04/29/17 01:33 BUN/Creatinine Ratio 24.2 (8-20) H 04/29/17 01:33 Glucose 96 mg/dL (70-100) 04/29/17 01:33 Calcium 9.4 mg/dL (8.6-10.3) 04/29/17 01:33 Magnesium 1.8 mg/dL (1.9-2.7) L 04/29/17 01:33 Total Bilirubin 0.40 mg/dL (0.2-1.0) 04/29/17 01:33 AST 25 U/L (13-39) 04/29/17 01:33 ALT 20 U/L (7-52) 04/29/17 01:33 Alkaline Phosphatase 62 U/L (34-104) 04/29/17 01:33 Total Creatine Kinase 198 U/L (10-223) 04/29/17 01:33 Troponin I 0.00 ng/mL (<0.04) 04/29/17 01:33 Total Protein 6.6 g/dL (6.4-8.9) 04/29/17 01:33 Albumin 4.1 g/dL (3.2-5.2) 04/29/17 01:33 Globulin 2.5 g/dL (2-4) 04/29/17 01:33 Albumin/Globulin Ratio 1.6 (1-3) 04/29/17 01:33 Urine Color Yellow 04/29/17 02:55 Urine Appearance Clear 04/29/17 02:55 Urine pH 5.0 (5-9) 04/29/17 02:55 Ur Specific [place] 1.014 (1.010-1.030) 04/29/17 02:55 Urine Protein Negative (Negative) 04/29/17 02:55 Urine Ketones Trace (Negative) A 04/29/17 02:55 Urine Blood 1+ (Negative) A 04/29/17 02:55 Urine Nitrate Negative (Negative) 04/29/17 02:55 Urine Bilirubin Negative (Negative) 04/29/17 02:55 Urine Urobilinogen Negative (Negative) 04/29/17 02:55 Ur Leukocyte Esterase Negative (Negative) 04/29/17 02:55 Urine WBC (Auto) 1+(6-10/hpf) (Absent) A 04/29/17 02:55 Urine RBC (Auto) Absent (Absent) 04/29/17 02:55 Ur Squamous Epith Cells Present (Absent) A 04/29/17 02:55 Urine Bacteria Absent (Absent) 04/29/17 02:55 Urine Glucose Negative (Negative) 04/29/17 02:55 Urine Opiates Screen None detected (None Detect) 04/29/17 02:55 Ur Barbiturates Screen None detected (None Detect) 04/29/17 02:55 Ur Phencyclidine Scrn None detected (None Detect) 04/29/17 02:55 Ur Amphetamines Screen None detected (None Detect) 04/29/17 02:55 U Benzodiazepines Scrn None detected (None Detect) 04/29/17 02:55 Urine Cocaine Screen None detected (None Detect) 04/29/17 02:55 U Cannabinoids Screen None detected (None Detect) 04/29/17 02:55 Serum Alcohol 279 mg/dL (<10) H 04/29/17 01:33 General: Laying comfortably in bed. Answers questions appropriately. RLE: Splint in place. Toes with sensation to light touch intact. Capillary refill less than two seconds distally. No erythema proximal to splint. Assessment: []Right Tib/ Fib fractures Plan: []WNL RLE Regular diet today NPO 05/01/17 for OR-recasting Transfer to [facility] today per hospitalist service
[2017-04-29] MEDS ORDERED: Metoprolol Tartrate IV* 1 MG/ML 5 ML VIAL IV PRN (15:04)
--- NOTE | 2017-04-29 16:17 | HP ---
HISTORY AND PHYSICAL: DATE OF ADMISSION: 04/29/17 HISTORY OF PRESENT ILLNESS: Ms. Larsen is a 66-year-old woman who lives on her own. She has had a previous total knee and total hip on the right side with multiple fractures in the past. She fell in the late evening last night and broke her proximal tibia with a closed injury. She eventually made it to the emergency room. She said she had to stay on the floor and then crawl slowly to get her carmen ne. She was splinted in the emergency room and then admit orders arranged for overnight stay. This morning, Ms. Larsen is in mild pain. She is splinted in a long leg splint with the knee flexed about 30 degrees. She has had previous fractures in that leg. She had a severe open tibia fracture rock climbing in , which required an external fixator by her account. Recently, in August of this last year, she had a closed supracondylar fracture treated nonoperatively by her orthopedist at [place]. At this point, josiah zamarripa has a proximal close tibia fracture in a splint. MEDICATIONS: Ms. Larsen takes some Spiriva, some Cymbalta and some trazodone. ALLERGIES: She has an allergy to CODEINE. The rest of her medical history is positive for some asthma, some moderate EtOH ingestion and signifi cant osteoporosis. PRIMARY CARE DOCTOR: Dr. Echols. REVIEW OF SYSTEMS: Indicates that she has had no fevers or chills. No recent febrile illness. She has not had recent bouts of shortness of breath or difficulty breathing nor chest pain. She has been eating well, has no issues with reflux, diarrhea, nausea. Neurologically, she reports no history of seizures or neurological problems. She does not have a history of depression or anxiety by her acco unt. PHYSICAL EXAMINATION GENERAL: She is alert and appropriate mood and affect. NECK: She has a supple neck. LUNGS : Her chest exam is clear to auscultation. I do not hear wheezing this morning. CARDIAC EXAM: Shows prominent heart sounds, regular rate, no extra sounds noted. ABDOMEN: Soft, nontender. EXTREMITIES: Shows her to have a long-leg splint. Right lower extremity neutral alignment overall w ith the knee flexed about 30 degrees. The splint appears well padded. She is tender at the proximal tibia palpation through the splint. Foot is warm and sensate. She moves her toes well. RADIOGRAPHS: Her CT scan shows well-aligned proximal tibia fracture more or less transverse, just b elow the stem of an older cemented total knee. She has a remarkable amount of osteoporosis with esse ntially no intramedullary bone noted at all on the CT scan. There is also stigmata of a previous mid shaft tibia fracture, supracondylar fracture as well, both healed. ASSESSMENT/PLAN: The patient with closed proximal right tibia fracture in the face of severe osteopo rosis. She has reasonable alignment of this. She lives at home in a house without stairs. She has close friends, but no family near by. It is possible with brace immobilization she could heal this w ithout surgical intervention, which would be difficult given the lack of any adequate bones without b one . However, it would be difficult for her to care for herself and may require rehab placeme nt. We will have a medical evaluation as well. [id number]/[facility] #: [id number]
--- NOTE | 2017-04-29 17:17 | PN ---
Progress Note - Progress Note Date of Service: 04/29/17 Note: Addendum to Consultation from today: Transferred to 4S Received 6mg then 12mg adenosine Reviewed EKGs with cardiology. Appears to be in aflutter which converted very briefly to NSR with adenosine. Started metoprolol IV 5mg once with conversion to NSR
--- NOTE | 2017-04-29 19:12 | CONS ---
CONSULTATION REPORT: DATE OF CONSULTATION: 04/29/17 SERVICE REQUESTING CONSULTATION: Orthopedics. REASON FOR CONSULTATION: Tachycardia and alcohol withdrawal. SOURCE OF INFORMATION: History obtained from interview with the patient and review of past medical records. RELIABILITY: Fair to poor. HISTORY OF PRESENT ILLNESS: This is a 66-year-old female with past medical history of alcohol abuse who had been in her usual state of health, although notes that she has reportedly had poor balance with several falls over the last 6 to 8 months, was yesterday outside her home trying to prune lilac and slipped on her porch that was wet and uneven without loss of consciousness. No preceding chest pain or lightheadedness. She had sudden right leg pain and was found with a right tibia fibula fracture as well as a left 10th rib fracture. She denies heavy drinking at that time, drinks 1 glass of wine per day, heavier if she is with friends, but does endorse withdrawal from alcohol in the past with her last rehab stay 3 years prior to presentation. Denies seizures or history of intubations. When seen in the hospital, she reported feeling tired, but no pain. She previously felt palpitations despite heart rate of about 170 currently. Also endorses nausea. Denies chest pain or shortness of breath. Chart review indicates followup with Dr. Segura, Cardiology, in the past for syncope. She has had a Holter with the report of rare SVT. PAST MEDICAL HISTORY: Includes per chart review, tachycardia, osteoporosis, anxiety, multinodular goiter, COPD, hypercalcemia, alcohol abuse, tobacco abuse , cataracts, multiple surgeries in the right lower leg after injury after climbing and fall, right total knee replacement. MEDICATIONS: Home medications reviewed from computer include: 1. Spiriva. 2. Trazodone 50 mg at bedtime as needed. 3. Cymbalta DR 60 mg daily. 4. Zinc 100 mg daily. 5. Symbicort 80/4.5 mcg 2 puffs twice daily as needed. 6. Calcium/vitamin D. 7. Multivitamin daily. 8. Vitamin B12. 9. Actonel 150 mg p.o. ALLERGIES: CODEINE and INSECTS. FAMILY HISTORY: Positive for colon cancer. SOCIAL HISTORY: Endorses 1 alcoholic drink per day, but more when out with friends. Quit smoking in her 20s. PHYSICAL EXAMINATION: Vitals when seen by this author, blood pressure 147/69, heart rate 170, respiratory rate of 16, T-max since admission is 100.2 overnight. Lethargic but interactive. Alert and oriented x3 some time. Her oropharynx is clear. She has dry mucous membranes. Her sclerae are anicteric. She had elevated JVD. Pulsatile, external jugular. Tachycardic heart rate, difficult to appreciate murmurs, prominent T2. Lungs are clear to auscultation. Abdomen is soft, nontender. Extremities are warm. Her right lower extremity is casted. She has negative asterixis, but tremor with arms outstretched and tongue fasciculations. LABORATORY DATA/DIAGNOSTIC STUDIES: Data reviewed, notable for serum alcohol 279. Lower extremity CT, nonarticular tibia and fibular fractures of the right lower extremity. Chest x-ray was grossly nondisplaced left 10th rib fracture anteriorly, stigmata of chronic obstructive pulmonary disease. EKG at 11:32 p.m.; tachycardia, 145 beats per minute, grossly appears sinus versus SVT with frequent PAC's, difficult to interpret given rates, ST depressions laterally in V4. ASSESSMENT AND PLAN: This is a 66-year-old female with past medical history of alcohol abuse, chronic obstructive pulmonary disease, tachycardia, previously worked up with Holter monitor found with short runs of supraventricular tachycardia, presented to the hospital after a fall, found with right tib-fib fracture as well as left 10th rib fracture with hospital stay complicated by tachycardia as well as suspected alcohol withdrawal. 1. Tachycardia. Transferred to telemetry after which time we will be able to administer medication, which have been informed as unable to be given on the 3rd floor at this time even in my presence. After transfer to telemetry, we will bend up to 12-lead EKG, administer 6 mg of adenosine to better identify rhythm. Suspect she will need beta-blockade. After administration of adenosine , rhythm can be identified. With history of supraventricular tachycardia and now trauma and withdrawal, I suspect supraventricular tachycardia to be the most likely diagnosis. She does not appear grossly hypovolemic; however, I suspect some volume deficit. Continue lactated Ringer's as already receiving. Increase rate to 150 for 2 additional liters. Possibility of pulmonary embolism should be entertained in the setting of recent fracture; however, no shortness of breath, no chest pain, no EKG evidence of pulmonary embolism at this time. Suspect alcohol withdrawal contributing more, however, if difficult to control or any of the above developed, we will move for a CTA of chest and thorax. 2. Alcohol withdrawal. Placed on WA protocol with IV lorazepam receiving with good effect, limited by lethargy. 3. Chronic obstructive pulmonary disease. Agree with budesonide, formoterol, although not in exacerbation. 4. History of anxiety. Continue Cymbalta. 5. Tib-fib fracture. Surgery postponed to tomorrow per Dr. Morillo. 6. DVT prophylaxis, currently receiving none. I will leave this decision to the primary team in the setting of recent fracture and plan for surgery to be discussed with team. [id number]/[facility] #: [id number] MTDD
[2017-04-29] MEDS: Acetaminophen TAB* 325 MG PO PRN (19:54)
[2017-04-29] MEDS: oxyCODONE TAB* 5 MG TAB PO PRN (20:06)
--- NOTE | 2017-04-29 23:28 | CONS ---
CONSULTATION REPORT: DATE OF CONSULT: TIME SEEN: 1700 in the afternoon. HISTORY OF PRESENT ILLNESS: Nayely was admitted through the night with proximal tibia fracture, righ t side. She was splinted in neutral position. CT scan has been performed. During the day, she developed supraventricular tachycardia and has been according to the nurses here reconverted to sinus rhythm on cardiac medication. The patient has been asymptomatic throughout this event and comfortable in bed. She has some mild pain at the knee. Her CT scan is reviewed and shows remarkable amount of osteoporosis in the proximal half of the right tibia. There is essentially no intramedullary bone, no cancellous bone, just a thin shell cortex. This would prelude straight forward plate fixation. The overall alignment appears reasonably well ap posed, so the plan for the current going forward is cast immobilization, nonweightbearing treatment, which may require jail facility. We will let the cardiac status stabilize for another day and then consider cast application potential ly in the operating room. [id number]/[facility] #: [id number]
[2017-04-30] MEDS: LORazepam INJ* 2 MG/ML 1 ML VIAL IV PUSH SCH ×7 (01:10→22:23)
[2017-04-30] MEDS ORDERED: Mometasone/Formoter 100/5 MDI INH PRN (04:39)
[2017-04-30] MEDS: Morphine INJ* 2 MG/ML 1 ML CARPUJECT IV PRN (07:53)
[2017-04-30] MEDS: Thiamine TAB* 100 MG TAB PO SCH (07:55)
[2017-04-30] MEDS: Multivitamins/Minerals TAB PO SCH (07:55)
[2017-04-30] MEDS: Folic Acid TAB* 1 MG PO SCH (07:55)
[2017-04-30] MEDS ORDERED: Magnesium Sulfate 2 GM IV* 2 GM/50 ML BAG IVPB ONE (10:21)
[2017-04-30] MEDS ORDERED: DULoxetine DR CAP* 20 MG CAP.DR PO SCH (12:00)
[2017-04-30] MEDS ORDERED: cefTRIAXone(*) 1 GM in NS 0.9% 50 ML* 50 ML IVPB SCH (12:00)
[2017-04-30] MEDS: cefTRIAXone 1000 MG SYRINGE IVPB Q24H IVPB SCH ×2 (12:36)
--- NOTE | 2017-04-30 15:32 | PN ---
Subjective Date of Service: 04/30/17 Interval History: Patient very lethargic today but responsive and oriented to place, time and person. Patient states pain is 3/10 in leg. Patient denies other pain. Patient states that she is intermittently nauseated but attributes this to her not having eaten. Patient denies confusion, CP, SOB, Diarrhea, constipation. Patient is incontinent of urine and is not at her baseline but denies dysuria. Family History: Unchanged from Admission Social History: Unchanged from Admission Past Medical History: Unchanged from Admission Objective Active Medications: Acetaminophen (Tylenol Tab*) 650 mg PO Q4H PRN PRN Reason: PAIN Last Admin: 04/29/17 19:54 Dose: 650 mg Duloxetine HCl (Cymbalta Cap*) 60 mg PO 1200 [facility] Last Admin: 04/30/17 11:31 Dose: Not Given Folic Acid (Folvite Tab*) 1 mg PO DAILY [facility] Last Admin: 04/30/17 07:55 Dose: 1 mg Lactated Ringer's (Lactated Ringers 1000 Ml Bag*) 1,000 mls @ 150 mls/hr IV PER RATE [facility] Stop: 04/30/17 20:05 Last Admin: 04/29/17 21:56 Dose: 150 mls/hr Ceftriaxone Sodium 1,000 mg/ (Sterile Water) 10 mls @ 40 mls/hr IVPB Q24H [facility] Last Admin: 04/30/17 12:36 Dose: 40 mls/hr Lorazepam (Ativan Inj*) 0 - 6 mg IV PUSH .PER [facility] PROTOCOL [facility] PRN Reason: Protocol Last Admin: 04/30/17 13:49 Dose: 2 mg Metoprolol Tartrate (Lopressor Iv*) 5 mg IV Q6H PRN PRN Reason: BLOOD PRESSURE Mometasone Furoate/Formoterol Fumar (Dulera 100/5 Mdi*) 2 puff INH BID PRN PRN Reason: SHORTNESS OF BREATH Morphine Sulfate (Morphine Inj (Syringe)*) 2 mg IV Q3H PRN PRN Reason: PAIN - SEVERE Last Admin: 04/30/17 07:53 Dose: 2 mg Multivitamins/Minerals (Theragran/Minerals Tab*) 1 tab PO DAILY [facility] Last Admin: 04/30/17 07:55 Dose: 1 tab Oxycodone HCl (Roxycodone Tab*) 5 mg PO Q3H PRN PRN Reason: PAIN Last Admin: 04/29/17 20:06 Dose: 5 mg Thiamine HCl (Vitamin B-1 Tab*) 100 mg PO DAILY [facility] Last Admin: 04/30/17 07:55 Dose: 100 mg Vital Signs - 8 hr 04/30/17 04/30/17 13:41 13:49 Pulse Rate 108 Respiratory 18 Rate Blood Pressure 160/88 (mmHg) Oxygen Devices in Use Now: None Appearance: Patient is a 66yo female who appears older than stated age and is sitting in the bed in [facility]. Eyes: No Scleral Icterus, PERRLA Ears/Nose/Mouth/Throat: NL Teeth, Lips, Gums, Clear Oropharnyx, Mucous Membranes Moist Neck: NL Appearance and Movements; NL JVP, Trachea Midline Respiratory: Symmetrical Chest Expansion and Respiratory Effort, Clear to Auscultation Cardiovascular: NL Sounds; No Murmurs; No JVD, RRR, No Edema, - - Pulses 2+ in LE. Abdominal: NL Sounds; No Tenderness; No Distention, No Hepatosplenomegaly Lymphatic: No Cervical Adenopathy Extremities: No Edema, No Clubbing, Cyanosis Skin: No Rash or Ulcers, No Nodules or Sclerosis Neurological: Alert and Oriented x 3, NL Sensation, NL Muscle Strength and Tone , - - CN II-XII intact. Result Diagrams: 04/29/17 01:33 04/29/17 01:33 Assess/Plan/Problems-Billing Assessment: Patient is a 66yo female with a PMH of Alcohol abuse, SVT, osteoporosis, COPD who presents with a mechanical fall resulting in a right sided tibia and fibula fracture. Patient is currently withdrawing from alcohol and will undergo a recasting of her leg today in the OR with orthopedics. - Patient Problems (1) Tibia/fibula fracture Current Visit: Yes Status: Acute Code(s): S82.209A - UNSP FRACTURE OF SHAFT OF UNSP TIBIA, INIT FOR CLOS FX; S82.409A - UNSP FRACTURE OF SHAFT OF UNSP FIBULA, INIT FOR CLOS FX SNOMED Code(s): 211707382 Comment: Management per ortho. Pain well controlled. Plan for recasting today in the OR. (2) Atrial flutter Current Visit: Yes Status: Acute Code(s): I48.92 - UNSPECIFIED ATRIAL FLUTTER SNOMED Code(s): 1643820 Comment: Appreciate cardiology input. EKG consistent with aflutter with rates up to the 180s. Converted with metoprolol. CHADS2-Vasc score of 3. Antiocagulation warranted when orthopedics no longer likely to intervene. on fractures. (3) COPD (chronic obstructive pulmonary disease) Current Visit: Yes Status: Acute Code(s): J44.9 - CHRONIC OBSTRUCTIVE PULMONARY DISEASE, UNSPECIFIED SNOMED Code(s): 23890563 Comment: Not in exacerbation. Continue with Dulera and PRN nebulizers. (4) Alcohol withdrawal Current Visit: Yes Status: Acute Code(s): F10.239 - ALCOHOL DEPENDENCE WITH WITHDRAWAL, UNSPECIFIED SNOMED Code(s): 431546274 Comment: WAM protocol. Receiving significant amounts of ativan. Lethargic. Tachycardia. Continue vitamins. (5) Hypertension Current Visit: No Status: Chronic Code(s): I10 - ESSENTIAL (PRIMARY) HYPERTENSION SNOMED Code(s): 81247847 Comment: Hypertensive. On no medications outpatient. Will start scheduled metoprolol for HTN, Rate control and Alcohol withdrawal. (6) Osteoporosis Current Visit: No Status: Chronic Code(s): M81.0 - AGE-RELATED OSTEOPOROSIS W/O CURRENT PATHOLOGICAL FRACTURE SNOMED Code(s): 68508492 Comment: Severe per leg X-ray. T-score in 2017 in lumbar spine and radius -1.2 and -2.6 respectively Unable to do internal fixation due to poor bone density. Alcoholism likely contributing. Continue risendronate on discharge. Consider referral for Forteo therapy. TSH, T4 and T3 pending. (7) Thyroid nodule Current Visit: No Status: Acute Priority: High Code(s): E04.1 - NONTOXIC SINGLE THYROID NODULE SNOMED Code(s): 831507078 Comment: Previously evaluated by endocrinology. TSH, T4, T3 pending. Could be contributing to osteoporosis and Atrial Flutter. (8) DVT prophylaxis Current Visit: Yes Status: Acute Code(s): YUA7208 - SNOMED Code(s): 272674762 Comment: Will fully anticoagulate after orthopedic intervention due to atrial flutter. Status and Disposition: Inpatient, will likely need RENATE at discharge.
[2017-04-30] MEDS ORDERED: Albuterol/Ipratropium NEB.SOL* Albuterol 2.5 MG/Ipratropium 0.5 MG 3 ML INH PRN (15:34)
--- NOTE | 2017-04-30 17:05 | RAD ---
INDICATION: Right knee traumatic fracture status post splint. COMPARISON: Comparison is made with a prior study from April 30, 2015. TECHNIQUE: 2 views of the right knee were obtained. FINDINGS: There is a transverse slightly impacted fracture of the proximal diaphysis of the fibula. There is also a transverse slightly impacted fracture of the proximal metaphysis of the fibula. There is a transverse periprosthetic fracture of the proximal tibial metaphysis. The distal fragment is displaced 2 cortical lateral relative to the proximal fragment. The patient is status post total knee replacement surgery. IMPRESSION: 1. DISPLACED PERIPROSTHETIC FRACTURE OF THE PROXIMAL TIBIA. 2. FRACTURES OF THE PROXIMAL FIBULA IS NOTED.
--- NOTE | 2017-04-30 17:52 | RAD ---
INDICATION: Traumatic fracture right lower leg status post external reduction. COMPARISON: Comparison is made with a prior x-ray study of the right knee from April 30, 2017. TECHNIQUE: 2 views of the right lower leg were obtained. FINDINGS: The patient is status post external reduction. The bones are visualized through a fiberglass cast. Again note is made of fractures of the proximal tibia and fibula which appear unchanged in position from the prior study. IMPRESSION: STATUS POST EXTERNAL REDUCTION NO SIGNIFICANT CHANGE IN POSITION OF THE FRACTURES OF THE PROXIMAL FIBULA AND TIBIA.
[2017-04-30] MEDS: Acetaminophen TAB* 325 MG PO PRN (17:53)
--- NOTE | 2017-04-30 21:44 | PN ---
Progress Note - Progress Note Date of Service: 04/30/17 Note: 3:15 pm Pt seen an examined. Planned for OR to cast vs splint. Pt has been in DTs due to etoh consumption and has had several doses of ativan. As a result, pt not fully oriented to year nor mechanism of injury. Both anesthesia MD and I feel uncomfortable subjecting her to sedation and as such will attempt long leg splinting in pre an area with possible need for pain management. RLE: skin intact, edema, able to flex/ext toes. grossly sensate but pt was not consistent with following commands. brisk cap refill. Pt had swelling to distal leg with bruising at fracture site and deemed to swollen to cast therefore placed in long leg plaster splint. Pt tolerated procedure well. Post splint films demonstrate no great change in fracture displacement but slight improvement in AP angulation. Dr Morillo to continue to manage patient.
[2017-04-30] MEDS: Metoprolol Tartrate TAB* 25 MG PO SCH (21:57)
[2017-05-01] MEDS: oxyCODONE TAB* 5 MG TAB PO PRN (05:23)
[2017-05-01 05:30] LABS: ABS Basophils 0 10^3/ul (0-0.2); ABS Eosinophils 0.1 10^3/ul (0-0.6); ABS Lymphocytes 0.6 10^3/ul (1.0-4.8); ABS Monocytes 0.5 10^3/ul (0-0.8); ABS Neutrophils 4.8 10^3/ul (1.5-7.7); ABS Nucleated RBC 0 10^3/ul; Eosinophil % 1.4 % (0-6); Hematocrit 39 % (35-47); Hemoglobin 13.3 g/dl (12.0-16.0); Lymphocyte % 10.4 % (25-47); Mean Corpuscular HGB Conc 34 g/dl (31-36); Mean Corpuscular Hemoglobin 34 pg (27-31); Mean Corpuscular Volume 100 fL (80-97); Mean Platelet Volume 7 um3 (7.4-10.4); Nucleated Red Blood Cells % 0.1; Platelet Count 174 10^3/ul (150-450); Red Blood Count 3.92 10^6/ul (4.0-5.4); Red Cell Distribution Width 14 % (10.5-15); White Blood Count 6.1 10^3/ul (3.5-10.8)
[2017-05-01] MEDS: LORazepam INJ* 2 MG/ML 1 ML VIAL IV PUSH SCH ×5 (06:06→22:16)
[2017-05-01] MEDS: Multivitamins/Minerals TAB PO SCH (09:08)
[2017-05-01] MEDS: Thiamine TAB* 100 MG TAB PO SCH (09:08)
[2017-05-01] MEDS: Folic Acid TAB* 1 MG PO SCH (09:09)
[2017-05-01] MEDS: Metoprolol Tartrate TAB* 25 MG PO SCH ×2 (09:09→22:16)
[2017-05-01] MEDS ORDERED: Potassium Chloride LIQUID* 20 MEQ PACKET PO ONE (10:06)
[2017-05-01] MEDS ORDERED: Potassium Chlor TAB* 20 MEQ TAB.ER PO ONE (10:06)
[2017-05-01] MEDS: cefTRIAXone 1000 MG SYRINGE IVPB Q24H IVPB SCH ×2 (12:06)
[2017-05-01] MEDS: DULoxetine DR CAP* 60 MG CAP.DR PO SCH (12:13)
--- NOTE | 2017-05-01 13:59 | PN ---
Subjective Date of Service: 05/01/17 Interval History: Patient seen and examined in the AM. Sedated after receiving ativan but Oriented x3. States minimal pain in leg. Denies other complaints. Patient fall asleep frequently during conversation. Denies SOB, CP, N/V, Abdominal pain, F/C , dysuria, or other pain. Called by nursing staff around 1200 due to agitation and delusions stating that she was "On [employer]andid Camera" and stating that "There are floosies in and out of this room all day long." Patient unable to be reoriented and states that she would like her cast off. Family History: Unchanged from Admission Social History: Unchanged from Admission Past Medical History: Unchanged from Admission Objective Active Medications: Acetaminophen (Tylenol Tab*) 650 mg PO Q4H PRN PRN Reason: PAIN Last Admin: 04/30/17 17:53 Dose: 650 mg Albuterol/Ipratropium (Duoneb (Albuterol 2.5 Mg/Ipratropium 0.5 Mg)) 1 neb INH Q6H PRN PRN Reason: SOB/WHEEZING Duloxetine HCl (Cymbalta Cap*) 60 mg PO 1200 [facility] Last Admin: 05/01/17 12:13 Dose: 60 mg Folic Acid (Folvite Tab*) 1 mg PO DAILY [facility] Last Admin: 05/01/17 09:09 Dose: 1 mg Ceftriaxone Sodium 1,000 mg/ (Sterile Water) 10 mls @ 40 mls/hr IVPB Q24H [facility] Last Admin: 05/01/17 12:06 Dose: 40 mls/hr Lorazepam (Ativan Inj*) 0 - 6 mg IV PUSH .PER [facility] PROTOCOL [facility] PRN Reason: Protocol Last Admin: 05/01/17 12:06 Dose: 1 mg Metoprolol Tartrate (Lopressor Iv*) 5 mg IV Q6H PRN PRN Reason: BLOOD PRESSURE Metoprolol Tartrate (Lopressor Tab*) 25 mg PO BID [facility] Last Admin: 05/01/17 09:09 Dose: 25 mg Mometasone Furoate/Formoterol Fumar (Dulera 100/5 Mdi*) 2 puff INH BID PRN PRN Reason: SHORTNESS OF BREATH Morphine Sulfate (Morphine Inj (Syringe)*) 2 mg IV Q3H PRN PRN Reason: PAIN - SEVERE Last Admin: 04/30/17 07:53 Dose: 2 mg Multivitamins/Minerals (Theragran/Minerals Tab*) 1 tab PO DAILY [facility] Last Admin: 05/01/17 09:08 Dose: 1 tab Oxycodone HCl (Roxycodone Tab*) 5 mg PO Q3H PRN PRN Reason: PAIN Last Admin: 05/01/17 05:23 Dose: 5 mg Thiamine HCl (Vitamin B-1 Tab*) 100 mg PO DAILY [facility] Last Admin: 05/01/17 09:08 Dose: 100 mg Vital Signs - 8 hr 05/01/17 05/01/17 05/01/17 06:00 06:06 07:15 Temperature 98.2 F 98.2 F Pulse Rate 108 108 Respiratory 18 16 Rate Blood Pressure 133/85 142/86 (mmHg) O2 Sat by Pulse 97 Oximetry 05/01/17 05/01/17 05/01/17 08:00 08:01 09:00 Temperature Pulse Rate Respiratory 14 16 14 Rate Blood Pressure (mmHg) O2 Sat by Pulse Oximetry 05/01/17 05/01/17 05/01/17 09:03 09:07 09:15 Temperature 98.5 F Pulse Rate 116 119 Respiratory 18 14 14 Rate Blood Pressure 136/94 (mmHg) O2 Sat by Pulse 95 96 Oximetry 05/01/17 05/01/17 05/01/17 10:49 11:01 12:06 Temperature 98.0 F Pulse Rate 97 Respiratory 14 15 16 Rate Blood Pressure 136/77 (mmHg) O2 Sat by Pulse Oximetry 05/01/17 12:59 Temperature Pulse Rate 113 Respiratory 15 Rate Blood Pressure 135/72 (mmHg) O2 Sat by Pulse 95 Oximetry Oxygen Devices in Use Now: None Appearance: Patient is a 66yo female who appears stated age and is sitting in the bed in NAD with visible tremulousness. Eyes: No Scleral Icterus, PERRLA Ears/Nose/Mouth/Throat: NL Teeth, Lips, Gums, Clear Oropharnyx, Mucous Membranes Moist Neck: NL Appearance and Movements; NL JVP, Trachea Midline Respiratory: Symmetrical Chest Expansion and Respiratory Effort, Clear to Auscultation Cardiovascular: NL Sounds; No Murmurs; No JVD, No Edema, - - Tachycardic Abdominal: NL Sounds; No Tenderness; No Distention, No Hepatosplenomegaly Lymphatic: No Cervical Adenopathy Extremities: No Edema, No Clubbing, Cyanosis, - - Right leg covered in cast. Skin: No Rash or Ulcers, No Nodules or Sclerosis Neurological: - - Tremulous. Disoriented. Uncooperative with exam. Neurologically intact distal to cast. Result Diagrams: 05/01/17 05:06 05/01/17 05:06 Assess/Plan/Problems-Billing Assessment: Patient is a 66yo female with a PMH of Alcohol abuse, SVT, osteoporosis, COPD who presents with a mechanical fall resulting in a right sided tibia and fibula fracture. Patient is currently withdrawing from alcohol and will undergo a recasting of her leg today in the OR with orthopedics. - Patient Problems (1) Tibia/fibula fracture Current Visit: Yes Status: Acute Code(s): S82.209A - UNSP FRACTURE OF SHAFT OF UNSP TIBIA, INIT FOR CLOS FX; S82.409A - UNSP FRACTURE OF SHAFT OF UNSP FIBULA, INIT FOR CLOS FX SNOMED Code(s): 433392399 Comment: Management per ortho. Pain moderately well controlled. Recasted yesterday in OR. Bedrest at this time. (2) Atrial flutter Current Visit: Yes Status: Acute Code(s): I48.92 - UNSPECIFIED ATRIAL FLUTTER SNOMED Code(s): 5108175 Comment: Appreciate cardiology input. EKG consistent with aflutter with rates up to the 180s. Converted with metoprolol. CHADS2-Vasc score of 3. Antiocagulation not initiated due to high fall risk and single provoked episode of atrial flutter. Anticoagulation should be reconsidered if recurs. In NSR on tele. (3) COPD (chronic obstructive pulmonary disease) Current Visit: Yes Status: Acute Code(s): J44.9 - CHRONIC OBSTRUCTIVE PULMONARY DISEASE, UNSPECIFIED SNOMED Code(s): 94875861 Comment: Not in exacerbation. Continue with Dulera and PRN nebulizers. (4) Alcohol withdrawal Current Visit: Yes Status: Acute Code(s): F10.239 - ALCOHOL DEPENDENCE WITH WITHDRAWAL, UNSPECIFIED SNOMED Code(s): 901843033 Comment: WAM protocol. Receiving significant amounts of ativan. Decreased dosing for WAM. Patient getting more agitated. Tachycardia. Continue vitamins. Patient currently lacks capacity to make medical decisions for herself due to alcohol withdrawal. (5) Hypertension Current Visit: No Status: Chronic Code(s): I10 - ESSENTIAL (PRIMARY) HYPERTENSION SNOMED Code(s): 24803335 Comment: Hypertensive. On no medications outpatient. Will start scheduled metoprolol for HTN, Rate control and Alcohol withdrawal. (6) Osteoporosis Current Visit: No Status: Chronic Code(s): M81.0 - AGE-RELATED OSTEOPOROSIS W/O CURRENT PATHOLOGICAL FRACTURE SNOMED Code(s): 19678422 Comment: Severe per leg X-ray. T-score in 2017 in lumbar spine and radius -1.2 and -2.6 respectively Unable to do internal fixation due to poor bone density. Alcoholism likely contributing. Continue risendronate on discharge. Consider referral for Forteo therapy. T3 and T4 low. (7) Thyroid nodule Current Visit: No Status: Acute Priority: High Code(s): E04.1 - NONTOXIC SINGLE THYROID NODULE SNOMED Code(s): 837149623 Comment: Previously evaluated by endocrinology. Euthyroid to hypothyroid. (8) DVT prophylaxis Current Visit: Yes Status: Acute Code(s): CCY1338 - SNOMED Code(s): 570745842 Comment: Heparin SubQ. Status and Disposition: Inpatient, will likely need RENATE at discharge.
[2017-05-01 15:29] LABS: INR 0.78 (0.77-1.02)
[2017-05-01] MEDS: Heparin VIAL(*) 5000 UNITS/ML VIAL (FIVE THOUSAND) SUBCUT SCH ×2 (16:00→22:16)
--- NOTE | 2017-05-01 16:13 | PN ---
Progress Note - Progress Note Date of Service: 05/01/17 SOAP: Subjective: Patient is seen at bedside, she is requesting to go to the next gate as she is flying to see her family. When redirected that she is in the hospital, she is able to recall day of week and location. She reports she needs to call her family and then that she has no family to call. Objective: Vital Signs Temp 98.0 F 05/01/17 11:01 Pulse 114 05/01/17 15:04 Resp 15 05/01/17 15:50 BP 136/84 05/01/17 15:04 Pulse Ox 92 05/01/17 15:04 Intake & Output 04/30/17 05/01/17 05/01/17 18:59 06:59 18:59 Intake Total 2150 240 700 Output Total 0 0 Balance 2150 240 700 Intake: IV Fluids 2049 IVPB 100 Oral 0 240 700 Output: Urine 0 0 Other: Estimated Void Large Large # Voids 4 1 Laboratory Results - last 24 hr 04/29/17 05/01/17 05/01/17 01:33 05:06 05:06 WBC 6.1 RBC 3.92 L Hgb 13.3 Hct 39 MCV 100 H MCH 34 H MCHC 34 RDW 14 Plt Count 174 MPV 7 L Neut % (Auto) 78.6 Lymph % (Auto) 10.4 L [place] % (Auto) 8.8 H Eos % (Auto) 1.4 Baso % (Auto) 0.8 Absolute Neuts (auto) 4.8 Absolute Lymphs (auto) 0.6 L Absolute Monos (auto) 0.5 Absolute Eos (auto) 0.1 Absolute Basos (auto) 0 Absolute Nucleated RBC 0 Nucleated RBC % 0.1 INR (Anticoag Therapy) APTT Sodium 137 Potassium 3.4 L Chloride 104 Carbon Dioxide 24 Anion Gap 9 BUN 7 Creatinine 0.31 L Est GFR ( Amer) 276.5 Est GFR (Non-Af Amer) 215.0 BUN/Creatinine Ratio 22.6 H Glucose 101 H Calcium 9.7 Magnesium 2.0 Total Bilirubin 1.00 AST 20 ALT 15 Alkaline Phosphatase 62 Total Protein 6.4 Albumin 3.7 Globulin 2.7 Albumin/Globulin Ratio 1.4 TSH 0.45 Thyroxine (T4) 3.07 L Total T3 0.60 L 05/01/17 15:14 WBC RBC Hgb Hct MCV MCH MCHC RDW Plt Count MPV Neut % (Auto) Lymph % (Auto) [place] % (Auto) Eos % (Auto) Baso % (Auto) Absolute Neuts (auto) Absolute Lymphs (auto) Absolute Monos (auto) Absolute Eos (auto) Absolute Basos (auto) Absolute Nucleated RBC Nucleated RBC % INR (Anticoag Therapy) 0.78 APTT 34.1 Sodium Potassium Chloride Carbon Dioxide Anion Gap BUN Creatinine Est GFR ( Amer) Est GFR (Non-Af Amer) BUN/Creatinine Ratio Glucose Calcium Magnesium Total Bilirubin AST ALT Alkaline Phosphatase Total Protein Albumin Globulin Albumin/Globulin Ratio TSH Thyroxine (T4) Total T3 RLE: Splint in place, virgil wrapping is undone proximally to below knee. No drainage noted on gauze. Able to wiggle toes. Brisk capillary refill. Assessment: 1. Proximal tibia fracture. Plan: 1. Maintain splint until able to address fracture surgically. This was redressed with Virgil wrap today. 2. Patient currently not oriented and unable to consent for surgery, with alcohol withdrawals. Surgery will occur after able to consent. Likely Friday, with Dr. Morillo.
--- NOTE | 2017-05-01 18:41 | PN ---
PROGRESS NOTE: DATE OF SERVICE: 05/01/17. Nayely has been having a rough week. She is still coming out of withdrawals from her alcoholism. Today she is fidgety in the bed, seems quite lethargic, foggy in terms of her memory and really not particularly conversant. The splint has been applied yesterday and appears to fit well. She is able to move her toes well and has a warm sensate foot. If she does clear mentally in the next few days, then we will consider going with a formal cast brace for her leg, but in the meantime, we will just stick with the splint and continue supportive medical care. [id number]/[facility] [place] #: [id number] JOSSELIN
[2017-05-02] MEDS: Morphine INJ* 2 MG/ML 1 ML CARPUJECT IV PRN (02:30)
[2017-05-02] MEDS: LORazepam INJ* 2 MG/ML 1 ML VIAL IV PUSH SCH (03:35)
[2017-05-02 05:29] LABS: ABS Basophils 0 10^3/ul (0-0.2); ABS Eosinophils 0.2 10^3/ul (0-0.6); ABS Lymphocytes 0.7 10^3/ul (1.0-4.8); ABS Monocytes 0.6 10^3/ul (0-0.8); ABS Neutrophils 5.4 10^3/ul (1.5-7.7); ABS Nucleated RBC 0 10^3/ul; Eosinophil % 3.5 % (0-6); Hematocrit 37 % (35-47); Hemoglobin 12.9 g/dl (12.0-16.0); Mean Corpuscular HGB Conc 35 g/dl (31-36); Mean Corpuscular Hemoglobin 34 pg (27-31); Mean Corpuscular Volume 98 fL (80-97); Mean Platelet Volume 7 um3 (7.4-10.4); Nucleated Red Blood Cells % 0.1; Platelet Count 185 10^3/ul (150-450); Red Blood Count 3.76 10^6/ul (4.0-5.4); Red Cell Distribution Width 14 % (10.5-15)
[2017-05-02 05:45] LABS: EGFR Non-African American 186.9 (>60)
[2017-05-02] MEDS: Heparin VIAL(*) 5000 UNITS/ML VIAL (FIVE THOUSAND) SUBCUT SCH ×3 (06:18→21:08)
[2017-05-02] MEDS ORDERED: Magnesium Sulfate IV* 3 GM in NS 0.9% 100 ML* 100 ML IVPB ONE (07:17)
[2017-05-02] MEDS ORDERED: Magnesium Sulfate 2 GM IV IVPB ONE (08:00)
[2017-05-02] MEDS: Metoprolol Tartrate TAB* 25 MG PO SCH ×2 (08:57→20:42)
[2017-05-02] MEDS: Thiamine TAB* 100 MG TAB PO SCH (08:57)
[2017-05-02] MEDS: Multivitamins/Minerals TAB PO SCH (08:57)
[2017-05-02] MEDS: Folic Acid TAB* 1 MG PO SCH (08:58)
[2017-05-02] MEDS ORDERED: Magnesium Sulfate 1 GM IV* 1 GM/100 ML BAG IV ONE (09:00)
[2017-05-02] MEDS: DULoxetine DR CAP* 60 MG CAP.DR PO SCH (12:43)
[2017-05-02] MEDS: cefTRIAXone 1000 MG SYRINGE IVPB Q24H IVPB SCH ×2 (12:46)
--- NOTE | 2017-05-02 13:22 | PN ---
Subjective Date of Service: 05/02/17 Interval History: Patient is much more lucid today, still slow with communication and repeatedly states that the month is "Friday." Has many questions about leg and healing process. Disappointed about loss of mobility, amenable to RENATE, would prefer PMRU. Intermittent nausea, feels less tremulous today. Denies F/C, N/V, abdominal pain, diarrhea, constipation, CP, SOB. Patient rates pain in leg at 3/ 10. Family History: Unchanged from Admission Social History: Unchanged from Admission Past Medical History: Unchanged from Admission Objective Active Medications: Acetaminophen (Tylenol Tab*) 650 mg PO Q4H PRN PRN Reason: PAIN Last Admin: 04/30/17 17:53 Dose: 650 mg Albuterol/Ipratropium (Duoneb (Albuterol 2.5 Mg/Ipratropium 0.5 Mg)) 1 neb INH Q6H PRN PRN Reason: SOB/WHEEZING Duloxetine HCl (Cymbalta Cap*) 60 mg PO 1200 [facility] Last Admin: 05/02/17 12:43 Dose: 60 mg Folic Acid (Folvite Tab*) 1 mg PO DAILY [facility] Last Admin: 05/02/17 08:58 Dose: 1 mg Heparin Sodium (Porcine) (Heparin Vial(*)) 5,000 units SUBCUT Q8HR [facility] Last Admin: 05/02/17 12:45 Dose: 5,000 units Ceftriaxone Sodium 1,000 mg/ (Sterile Water) 10 mls @ 40 mls/hr IVPB Q24H [facility] Last Admin: 05/02/17 12:46 Dose: 40 mls/hr Lorazepam (Ativan Inj*) 0 - 6 mg IV PUSH .PER [facility] PROTOCOL [facility] PRN Reason: Protocol Last Admin: 05/02/17 03:35 Dose: 2 mg Metoprolol Tartrate (Lopressor Iv*) 5 mg IV Q6H PRN PRN Reason: BLOOD PRESSURE Metoprolol Tartrate (Lopressor Tab*) 25 mg PO BID [facility] Last Admin: 05/02/17 08:57 Dose: 25 mg Mometasone Furoate/Formoterol Fumar (Dulera 100/5 Mdi*) 2 puff INH BID PRN PRN Reason: SHORTNESS OF BREATH Morphine Sulfate (Morphine Inj (Syringe)*) 2 mg IV Q3H PRN PRN Reason: PAIN - SEVERE Last Admin: 05/02/17 02:30 Dose: 2 mg Multivitamins/Minerals (Theragran/Minerals Tab*) 1 tab PO DAILY [facility] Last Admin: 05/02/17 08:57 Dose: 1 tab Oxycodone HCl (Roxycodone Tab*) 5 mg PO Q3H PRN PRN Reason: PAIN Last Admin: 05/01/17 05:23 Dose: 5 mg Thiamine HCl (Vitamin B-1 Tab*) 100 mg PO DAILY [facility] Last Admin: 05/02/17 08:57 Dose: 100 mg Vital Signs - 8 hr 05/02/17 05/02/17 05/02/17 05:48 07:00 07:49 Temperature 97.6 F 98.3 F Pulse Rate 87 88 Respiratory 16 16 16 Rate Blood Pressure 119/72 116/71 (mmHg) O2 Sat by Pulse 94 96 Oximetry 05/02/17 05/02/17 05/02/17 08:00 10:56 11:00 Temperature 97.3 F Pulse Rate 78 Respiratory 16 15 15 Rate Blood Pressure 115/68 (mmHg) O2 Sat by Pulse 98 Oximetry Oxygen Devices in Use Now: None Appearance: Patient is a 66yo female who appears older than stated age sitting in the bed with a glazed look, in NAD. Eyes: No Scleral Icterus, PERRLA Ears/Nose/Mouth/Throat: NL Teeth, Lips, Gums, Clear Oropharnyx, Mucous Membranes Moist Neck: NL Appearance and Movements; NL JVP, Trachea Midline Respiratory: Symmetrical Chest Expansion and Respiratory Effort, Clear to Auscultation Cardiovascular: NL Sounds; No Murmurs; No JVD, RRR, No Edema Abdominal: NL Sounds; No Tenderness; No Distention, No Hepatosplenomegaly Lymphatic: No Cervical Adenopathy Extremities: No Edema, No Clubbing, Cyanosis, - - Right leg in long splint. Good Capillary refill and sensation distal to splint. Skin: No Rash or Ulcers, No Nodules or Sclerosis Neurological: NL Sensation, NL Muscle Strength and Tone, - - CN II-XII intact. A /Ox2. Result Diagrams: 05/02/17 05:02 05/02/17 05:02 Assess/Plan/Problems-Billing Assessment: Patient is a 66yo female with a PMH of Alcohol abuse, SVT, osteoporosis, COPD who presents with a mechanical fall resulting in a right sided tibia and fibula fracture. Patient is currently withdrawing from alcohol and improving. Tentative plan for Casting with orthopedics on Friday. - Patient Problems (1) Tibia/fibula fracture Current Visit: Yes Status: Acute Code(s): S82.209A - UNSP FRACTURE OF SHAFT OF UNSP TIBIA, INIT FOR CLOS FX; S82.409A - UNSP FRACTURE OF SHAFT OF UNSP FIBULA, INIT FOR CLOS FX SNOMED Code(s): 336593556 Comment: Management per ortho. Pain moderately well controlled. Resplinted 04/30 in OR. Bedrest at this time. (2) Atrial flutter Current Visit: Yes Status: Acute Code(s): I48.92 - UNSPECIFIED ATRIAL FLUTTER SNOMED Code(s): 5099678 Comment: Appreciate cardiology input. EKG consistent with aflutter with rates up to the 180s. Converted with metoprolol. CHADS2-Vasc score of 3. Antiocagulation not initiated due to high fall risk and single provoked episode of atrial flutter. Anticoagulation should be reconsidered if recurs. In NSR on tele. (3) COPD (chronic obstructive pulmonary disease) Current Visit: Yes Status: Acute Code(s): J44.9 - CHRONIC OBSTRUCTIVE PULMONARY DISEASE, UNSPECIFIED SNOMED Code(s): 13882653 Comment: Not in exacerbation. Continue with Dulera and PRN nebulizers. (4) Alcohol withdrawal Current Visit: Yes Status: Acute Code(s): F10.239 - ALCOHOL DEPENDENCE WITH WITHDRAWAL, UNSPECIFIED SNOMED Code(s): 952266005 Comment: WAM protocol. No longer consistently scoring on WAM assessments. Decreased dosing for WAM. Continue vitamins. Much more lucid today. (5) Hypertension Current Visit: No Status: Chronic Code(s): I10 - ESSENTIAL (PRIMARY) HYPERTENSION SNOMED Code(s): 28448419 Comment: Normotensive. On no medications outpatient. Continue scheduled metoprolol for HTN, Rate control and Alcohol withdrawal. (6) Osteoporosis Current Visit: No Status: Chronic Code(s): M81.0 - AGE-RELATED OSTEOPOROSIS W/O CURRENT PATHOLOGICAL FRACTURE SNOMED Code(s): 94522913 Comment: Severe per leg X-ray. T-score in 2017 in lumbar spine and radius -1.2 and -2.6 respectively Unable to do internal fixation due to poor bone density. Alcoholism likely contributing. Continue risendronate on discharge. Consider referral for Forteo therapy. T3 and T4 low. (7) UTI (urinary tract infection) Current Visit: Yes Status: Acute Comment: Continue Ceftriaxone. Culture grew pansensitive E. coli. (8) Thyroid nodule Current Visit: No Status: Acute Priority: High Code(s): E04.1 - NONTOXIC SINGLE THYROID NODULE SNOMED Code(s): 995486959 Comment: Previously evaluated by endocrinology. Euthyroid to hypothyroid. (9) DVT prophylaxis Current Visit: Yes Status: Acute Code(s): NDF8037 - SNOMED Code(s): 328023556 Comment: Heparin SubQ. Status and Disposition: Inpatient, will likely need RENATE at discharge.
--- NOTE | 2017-05-02 14:48 | PN ---
Progress Note - Progress Note Date of Service: 05/02/17 SOAP: Subjective: 66 y/o female with R tib, fib fx, treating non-op, withdrawaling from ETOH. Patient without questions, concerns, appears confused. Objective: General Well appearing, NAD, AO, disheveled. MSK- R splint inplace, no drainage, odor, able to move toes, toes pink, warm. SITLT Vital Signs Temp 97.4 F 05/02/17 12:53 Pulse 97 05/02/17 12:53 Resp 16 05/02/17 13:00 BP 123/70 05/02/17 12:53 Pulse Ox 96 05/02/17 12:53 Intake & Output 05/01/17 05/02/17 05/02/17 18:59 06:59 18:59 Intake Total 700 400 420 Output Total 0 0 Balance 700 400 420 Intake: Oral 700 400 420 Output: Urine 0 0 Other: Estimated Void Large # Voids 1 Assessment: 66 y/o female with R tib, fib fx, treating non-op, withdrawaling from ETOH. Plan: - non-wieght bearing - Plan for cast on friday, surgery unlikely due to fx approximation, poor bone quality - Rehab/ SNF at D/C - Appreciate hospitalist care Acetaminophen (Tylenol Tab*) 650 mg PO Q4H PRN PRN Reason: PAIN Last Admin: 04/30/17 17:53 Dose: 650 mg Albuterol/Ipratropium (Duoneb (Albuterol 2.5 Mg/Ipratropium 0.5 Mg)) 1 neb INH Q6H PRN PRN Reason: SOB/WHEEZING Duloxetine HCl (Cymbalta Cap*) 60 mg PO 1200 [facility] Last Admin: 05/02/17 12:43 Dose: 60 mg Folic Acid (Folvite Tab*) 1 mg PO DAILY [facility] Last Admin: 05/02/17 08:58 Dose: 1 mg Heparin Sodium (Porcine) (Heparin Vial(*)) 5,000 units SUBCUT Q8HR [facility] Last Admin: 05/02/17 12:45 Dose: 5,000 units Ceftriaxone Sodium 1,000 mg/ (Sterile Water) 10 mls @ 40 mls/hr IVPB Q24H [facility] Last Admin: 05/02/17 12:46 Dose: 40 mls/hr Lorazepam (Ativan Inj*) 0 - 6 mg IV PUSH .PER [facility] PROTOCOL [facility] PRN Reason: Protocol Last Admin: 05/02/17 03:35 Dose: 2 mg Metoprolol Tartrate (Lopressor Iv*) 5 mg IV Q6H PRN PRN Reason: BLOOD PRESSURE Metoprolol Tartrate (Lopressor Tab*) 25 mg PO BID [facility] Last Admin: 05/02/17 08:57 Dose: 25 mg Mometasone Furoate/Formoterol Fumar (Dulera 100/5 Mdi*) 2 puff INH BID PRN PRN Reason: SHORTNESS OF BREATH Morphine Sulfate (Morphine Inj (Syringe)*) 2 mg IV Q3H PRN PRN Reason: PAIN - SEVERE Last Admin: 05/02/17 02:30 Dose: 2 mg Multivitamins/Minerals (Theragran/Minerals Tab*) 1 tab PO DAILY [facility] Last Admin: 05/02/17 08:57 Dose: 1 tab Oxycodone HCl (Roxycodone Tab*) 5 mg PO Q3H PRN PRN Reason: PAIN Last Admin: 05/01/17 05:23 Dose: 5 mg Thiamine HCl (Vitamin B-1 Tab*) 100 mg PO DAILY [facility] Last Admin: 05/02/17 08:57 Dose: 100 mg
[2017-05-03] MEDS: Heparin VIAL(*) 5000 UNITS/ML VIAL (FIVE THOUSAND) SUBCUT SCH ×3 (06:15→20:00)
[2017-05-03] MEDS: Metoprolol Tartrate TAB* 25 MG PO SCH ×2 (09:48→19:58)
[2017-05-03] MEDS: Thiamine TAB* 100 MG TAB PO SCH (09:48)
[2017-05-03] MEDS: Multivitamins/Minerals TAB PO SCH (09:48)
[2017-05-03] MEDS: Folic Acid TAB* 1 MG PO SCH (09:48)
[2017-05-03] MEDS: cefTRIAXone 1000 MG SYRINGE IVPB Q24H IVPB SCH ×2 (13:42)
[2017-05-03] MEDS: DULoxetine DR CAP* 60 MG CAP.DR PO SCH (13:45)
[2017-05-03] MEDS: oxyCODONE TAB* 5 MG TAB PO PRN ×2 (13:45→19:58)
--- NOTE | 2017-05-03 13:45 | PN ---
Progress Note - Progress Note Date of Service: 05/03/17 SOAP: Subjective: Pt sitting up in bed. Complains of minimal pain. Pt appears confused. Withdrawing from ETOH. Vital Signs: Temp Pulse Resp BP Pulse Ox 98.3 F 92 14 126/75 99 05/03/17 10:50 05/03/17 10:50 05/03/17 12:00 05/03/17 10:50 05/03/17 10:50 Laboratory Last Values WBC 7.0 10^3/ul (3.5-10.8) 05/02/17 05:02 RBC 3.76 10^6/ul (4.0-5.4) L 05/02/17 05:02 Hgb 12.9 g/dl (12.0-16.0) 05/02/17 05:02 Hct 37 % (35-47) 05/02/17 05:02 MCV 98 fL (80-97) H 05/02/17 05:02 MCH 34 pg (27-31) H 05/02/17 05:02 MCHC 35 g/dl (31-36) 05/02/17 05:02 RDW 14 % (10.5-15) 05/02/17 05:02 Plt Count 185 10^3/ul (150-450) 05/02/17 05:02 MPV 7 um3 (7.4-10.4) L 05/02/17 05:02 Neut % (Auto) 77.6 % (38-83) 05/02/17 05:02 Lymph % (Auto) 10.0 % (25-47) L 05/02/17 05:02 [place] % (Auto) 8.4 % (0-7) H 05/02/17 05:02 Eos % (Auto) 3.5 % (0-6) 05/02/17 05:02 Baso % (Auto) 0.5 % (0-2) 05/02/17 05:02 Absolute Neuts (auto) 5.4 10^3/ul (1.5-7.7) 05/02/17 05:02 Absolute Lymphs (auto) 0.7 10^3/ul (1.0-4.8) L 05/02/17 05:02 Absolute Monos (auto) 0.6 10^3/ul (0-0.8) 05/02/17 05:02 Absolute Eos (auto) 0.2 10^3/ul (0-0.6) 05/02/17 05:02 Absolute Basos (auto) 0 10^3/ul (0-0.2) 05/02/17 05:02 Absolute Nucleated RBC 0 10^3/ul 05/02/17 05:02 Nucleated RBC % 0.1 05/02/17 05:02 INR (Anticoag Therapy) 0.78 (0.77-1.02) 05/01/17 15:14 APTT 34.1 seconds (26.0-36.3) 05/01/17 15:14 Sodium 136 mmol/L (133-145) 05/02/17 05:02 Potassium 3.5 mmol/L (3.5-5.0) 05/02/17 05:02 Chloride 104 mmol/L (101-111) 05/02/17 05:02 Carbon Dioxide 25 mmol/L (22-32) 05/02/17 05:02 Anion Gap 7 mmol/L (2-11) 05/02/17 05:02 BUN 13 mg/dL (6-24) 05/02/17 05:02 Creatinine 0.35 mg/dL (0.51-0.95) L 05/02/17 05:02 Est GFR ( Amer) 240.3 (>60) 05/02/17 05:02 Est GFR (Non-Af Amer) 186.9 (>60) 05/02/17 05:02 BUN/Creatinine Ratio 37.1 (8-20) H 05/02/17 05:02 Glucose 121 mg/dL (70-100) H 05/02/17 05:02 Calcium 9.8 mg/dL (8.6-10.3) 05/02/17 05:02 Magnesium 1.7 mg/dL (1.9-2.7) L 05/02/17 05:02 Total Bilirubin 0.70 mg/dL (0.2-1.0) 05/02/17 05:02 AST 20 U/L (13-39) 05/02/17 05:02 ALT 15 U/L (7-52) 05/02/17 05:02 Alkaline Phosphatase 48 U/L (34-104) 05/02/17 05:02 Total Creatine Kinase 198 U/L (10-223) 04/29/17 01:33 Troponin I 0.00 ng/mL (<0.04) 04/29/17 01:33 Total Protein 6.2 g/dL (6.4-8.9) L 05/02/17 05:02 Albumin 3.7 g/dL (3.2-5.2) 05/02/17 05:02 Globulin 2.5 g/dL (2-4) 05/02/17 05:02 Albumin/Globulin Ratio 1.5 (1-3) 05/02/17 05:02 TSH 0.45 mcIU/mL (0.34-5.60) 04/29/17 01:33 Thyroxine (T4) 3.07 mcg/mL (6.09-12.23) L 04/29/17 01:33 Total T3 0.60 ng/mL (0.87-1.78) L 04/29/17 01:33 Urine Color Yellow 04/29/17 02:55 Urine Appearance Clear 04/29/17 02:55 Urine pH 5.0 (5-9) 04/29/17 02:55 Ur Specific [place] 1.014 (1.010-1.030) 04/29/17 02:55 Urine Protein Negative (Negative) 04/29/17 02:55 Urine Ketones Trace (Negative) A 04/29/17 02:55 Urine Blood 1+ (Negative) A 04/29/17 02:55 Urine Nitrate Negative (Negative) 04/29/17 02:55 Urine Bilirubin Negative (Negative) 04/29/17 02:55 Urine Urobilinogen Negative (Negative) 04/29/17 02:55 Ur Leukocyte Esterase Negative (Negative) 04/29/17 02:55 Urine WBC (Auto) 1+(6-10/hpf) (Absent) A 04/29/17 02:55 Urine RBC (Auto) Absent (Absent) 04/29/17 02:55 Ur Squamous Epith Cells Present (Absent) A 04/29/17 02:55 Urine Bacteria Absent (Absent) 04/29/17 02:55 Urine Glucose Negative (Negative) 04/29/17 02:55 Urine Opiates Screen None detected (None Detect) 04/29/17 02:55 Ur Barbiturates Screen None detected (None Detect) 04/29/17 02:55 Ur Phencyclidine Scrn None detected (None Detect) 04/29/17 02:55 Ur Amphetamines Screen None detected (None Detect) 04/29/17 02:55 U Benzodiazepines Scrn None detected (None Detect) 04/29/17 02:55 Urine Cocaine Screen None detected (None Detect) 04/29/17 02:55 U Cannabinoids Screen None detected (None Detect) 04/29/17 02:55 Serum Alcohol 279 mg/dL (<10) H 04/29/17 01:33 Objective: Splint intact. Able to wiggle toes. Sensation intact Assessment: 66 yo Female Right Tib/Fib fracture treated nonop Plan: NWB right LE Pain control Plan for cast on Friday05/05/17 Will possibly need Rehab/SNF
--- NOTE | 2017-05-03 13:46 | PN ---
Subjective Date of Service: 05/03/17 Interval History: Patient reports intermittent pain in Right LE. She is found to be A+Ox3. Denies any withdrawal symptoms. She reports she is very concerned about changing her cast friday. Doesnt answering some questions when asked, slightly confrontational. Denies SOB/CP. No fevers or chills. reports good appetite. denies any diarrhea/ constipation. Family History: Unchanged from Admission Social History: Unchanged from Admission Past Medical History: Unchanged from Admission Objective Active Medications: Acetaminophen (Tylenol Tab*) 650 mg PO Q4H PRN PRN Reason: PAIN Last Admin: 04/30/17 17:53 Dose: 650 mg Albuterol/Ipratropium (Duoneb (Albuterol 2.5 Mg/Ipratropium 0.5 Mg)) 1 neb INH Q6H PRN PRN Reason: SOB/WHEEZING Duloxetine HCl (Cymbalta Cap*) 60 mg PO 1200 [facility] Last Admin: 05/02/17 12:43 Dose: 60 mg Folic Acid (Folvite Tab*) 1 mg PO DAILY [facility] Last Admin: 05/03/17 09:48 Dose: 1 mg Heparin Sodium (Porcine) (Heparin Vial(*)) 5,000 units SUBCUT Q8HR [facility] Last Admin: 05/03/17 06:15 Dose: 5,000 units Ceftriaxone Sodium 1,000 mg/ (Sterile Water) 10 mls @ 40 mls/hr IVPB Q24H [facility] Last Admin: 05/02/17 12:46 Dose: 40 mls/hr Lorazepam (Ativan Inj*) 0 - 6 mg IV PUSH .PER [facility] PROTOCOL [facility] PRN Reason: Protocol Last Admin: 05/02/17 03:35 Dose: 2 mg Metoprolol Tartrate (Lopressor Iv*) 5 mg IV Q6H PRN PRN Reason: BLOOD PRESSURE Metoprolol Tartrate (Lopressor Tab*) 25 mg PO BID [facility] Last Admin: 05/03/17 09:48 Dose: 25 mg Mometasone Furoate/Formoterol Fumar (Dulera 100/5 Mdi*) 2 puff INH BID PRN PRN Reason: SHORTNESS OF BREATH Morphine Sulfate (Morphine Inj (Syringe)*) 2 mg IV Q3H PRN PRN Reason: PAIN - SEVERE Last Admin: 05/02/17 02:30 Dose: 2 mg Multivitamins/Minerals (Theragran/Minerals Tab*) 1 tab PO DAILY [facility] Last Admin: 05/03/17 09:48 Dose: 1 tab Oxycodone HCl (Roxycodone Tab*) 5 mg PO Q3H PRN PRN Reason: PAIN Last Admin: 05/01/17 05:23 Dose: 5 mg Thiamine HCl (Vitamin B-1 Tab*) 100 mg PO DAILY [facility] Last Admin: 05/03/17 09:48 Dose: 100 mg Vital Signs - 8 hr 05/03/17 05/03/17 05/03/17 06:55 07:02 07:56 Temperature 98.8 F Pulse Rate 92 Respiratory 16 16 12 Rate Blood Pressure 115/76 (mmHg) O2 Sat by Pulse 96 Oximetry 05/03/17 05/03/17 05/03/17 08:00 09:13 10:50 Temperature 98.3 F Pulse Rate 92 Respiratory 16 16 16 Rate Blood Pressure 126/75 (mmHg) O2 Sat by Pulse 99 Oximetry 05/03/17 12:00 Temperature Pulse Rate Respiratory 14 Rate Blood Pressure (mmHg) O2 Sat by Pulse Oximetry Oxygen Devices in Use Now: None Appearance: 66 yo female A+Ox3; NAD. Possible personality disorder - strange affect. Eyes: No Scleral Icterus, PERRLA Ears/Nose/Mouth/Throat: NL Teeth, Lips, Gums Respiratory: Symmetrical Chest Expansion and Respiratory Effort, - - mild crackles in bases b/l Cardiovascular: NL Sounds; No Murmurs; No JVD, RRR Abdominal: NL Sounds; No Tenderness; No Distention Extremities: No Edema, - - right le in soft cast - toe are pink warm Neurological: Alert and Oriented x 3 Lines/Tubes/Other Access: Clean, Dry and Intact Peripheral IV Nutrition: Taking PO's Result Diagrams: 05/02/17 05:02 05/02/17 05:02 Assess/Plan/Problems-Billing Assessment: Patient is a 66yo female with a PMH of Alcohol abuse, SVT, osteoporosis, COPD who presents with a mechanical fall resulting in a right sided tibia and fibula fracture. Patient is currently withdrawing from alcohol and improving. Tentative plan for Casting with orthopedics on Friday. - Patient Problems (1) Tibia/fibula fracture Comment: Management per ortho. Resplinted 04/30 in OR. Plan for cast on Friday05/05/17 NWB right LE Will possibly need Rehab/SNF Pain control (2) Alcohol withdrawal Comment: No signs of withdrawl. No longer scoring on WAM assessments - no ativan require for > 24 hours. DC WAM and prn ativan. Continue vitamins. (3) Atrial flutter Comment: Appreciate cardiology input. EKG consistent with aflutter with rates up to the 180s. Converted with metoprolol. CHADS2-Vasc score of 3. Antiocagulation not initiated due to high fall risk and single provoked episode of atrial flutter. Anticoagulation should be reconsidered if recurs. In NSR on tele. Continue Metoprolol Q12 hr (4) UTI (urinary tract infection) Comment: DC Ceftriaxone - 4 days total. Culture grew pansensitive E. coli. 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 Unclear what her psych history or dx is. Per nursing staff she has reported inappropriate verbal sexual behaviour regarding Dr. Chan and prior male PA. I have requested a psych consult as i think she should be evaluated. Would appreciate any input regarding medications or treatment plan for this patient moving forward. Most likely she will go to subacute rehab. (6) COPD (chronic obstructive pulmonary disease) Comment: Not in exacerbation. Continue with Dulera and PRN nebulizers. (7) Thyroid nodule Comment: Previously evaluated by endocrinology. Euthyroid to hypothyroid. (8) Hypertension Comment: Normotensive. On no medications outpatient. Continue scheduled metoprolol for HTN, Rate control (9) Osteoporosis Comment: Severe per leg X-ray. T-score in 2017 in lumbar spine and radius -1.2 and -2.6 respectively Unable to do internal fixation due to poor bone density. Alcoholism likely contributing. Continue risendronate on discharge. Consider referral for Forteo therapy. T3 and T4 low. Check vitamin D level. (10) DVT prophylaxis Comment: Heparin SubQ. Status and Disposition: Inpatient, will likely need RENATE at discharge. Psych consult pending
[2017-05-04] MEDS: Heparin VIAL(*) 5000 UNITS/ML VIAL (FIVE THOUSAND) SUBCUT SCH ×3 (05:10→20:41)
[2017-05-04 06:12] LABS: ABS Basophils 0 10^3/ul (0-0.2); ABS Eosinophils 0.1 10^3/ul (0-0.6); ABS Lymphocytes 0.4 10^3/ul (1.0-4.8); ABS Monocytes 0.6 10^3/ul (0-0.8); ABS Neutrophils 6.6 10^3/ul (1.5-7.7); ABS Nucleated RBC 0 10^3/ul; Eosinophil % 0.8 % (0-6); Hematocrit 38 % (35-47); Hemoglobin 12.9 g/dl (12.0-16.0); Lymphocyte % 5.8 % (25-47); Mean Corpuscular HGB Conc 34 g/dl (31-36); Mean Corpuscular Hemoglobin 34 pg (27-31); Mean Corpuscular Volume 99 fL (80-97); Mean Platelet Volume 7 um3 (7.4-10.4); Nucleated Red Blood Cells % 0; Platelet Count 160 10^3/ul (150-450); Red Cell Distribution Width 14 % (10.5-15); White Blood Count 7.7 10^3/ul (3.5-10.8)
[2017-05-04 06:23] LABS: EGFR Non-African American 164.9 (>60)
[2017-05-04] MEDS: Thiamine TAB* 100 MG TAB PO SCH (08:47)
[2017-05-04] MEDS: Multivitamins/Minerals TAB PO SCH (08:47)
[2017-05-04] MEDS: Folic Acid TAB* 1 MG PO SCH (08:47)
[2017-05-04] MEDS: Acetaminophen TAB* 325 MG PO PRN ×2 (08:48→18:45)
[2017-05-04] MEDS: Metoprolol Tartrate TAB* 25 MG PO SCH ×2 (08:48→20:40)
--- NOTE | 2017-05-04 09:28 | PN ---
Subjective Date of Service: 05/04/17 Interval History: Patient seen and examined at bedside. Denies fever, chills, shortness of breath , chest discomfort, N/V/D. Pt states that her pain is controlled. She is asking for a second opinion on the placement of a cast to her leg. She has been Dr. Fierro in the past, we discussed that he isn't airborne operations this weekend. Family History: Unchanged from Admission Social History: Unchanged from Admission Past Medical History: Unchanged from Admission Objective Active Medications: Acetaminophen (Tylenol Tab*) 650 mg PO Q4H PRN Reason: PAIN Albuterol/Ipratropium (Duoneb (Albuterol 2.5 Mg/Ipratropium 0.5 Mg)) 1 neb INH Q6H PRN Reason: SOB/WHEEZING Duloxetine HCl (Cymbalta Cap*) 60 mg PO 1200 [facility]O Folic Acid (Folvite Tab*) 1 mg PO DAILY [facility] Heparin Sodium (Porcine) (Heparin Vial(*)) 5,000 units SUBCUT Q8HR [facility] Metoprolol Tartrate (Lopressor Tab*) 25 mg PO BID [facility] Mometasone Furoate/Formoterol Fumar (Dulera 100/5 Mdi*) 2 puff INH BID PRN Reason: SHORTNESS OF BREATH Morphine Sulfate (Morphine Inj (Syringe)*) 2 mg IV Q3H PRN Reason: PAIN - SEVERE Multivitamins/Minerals (Theragran/Minerals Tab*) 1 tab PO DAILY [facility] Oxycodone HCl (Roxycodone Tab*) 5 mg PO Q3H PRN Reason: PAIN Thiamine HCl (Vitamin B-1 Tab*) 100 mg PO DAILY [facility] Vital Signs - 8 hr 05/04/17 05/04/17 05/04/17 02:59 07:14 07:48 Temperature 99.9 F 99.3 F Pulse Rate 98 98 Respiratory 16 16 16 Rate Blood Pressure 132/78 143/72 (mmHg) O2 Sat by Pulse 93 96 Oximetry Oxygen Devices in Use Now: None Appearance: NAD, sitting up in bed Ears/Nose/Mouth/Throat: Mucous Membranes Moist Respiratory: Symmetrical Chest Expansion and Respiratory Effort, Clear to Auscultation Cardiovascular: NL Sounds; No Murmurs; No JVD, RRR Abdominal: NL Sounds; No Tenderness; No Distention Extremities: No Edema Skin: - - Dressing/splint to right LE clean, dry and intact Neurological: Alert and Oriented x 3, NL Muscle Strength and Tone Lines/Tubes/Other Access: Clean, Dry and Intact Peripheral IV - site benign Nutrition: Taking PO's Result Diagrams: 05/04/17 05:53 05/04/17 05:53 Assess/Plan/Problems-Billing Assessment: Ms. Larsen is a 66yo female with a PMH of Alcohol abuse, SVT, osteoporosis, COPD who presents with a mechanical fall resulting in a right sided tibia and fibula fracture. - Patient Problems (1) Tibia/fibula fracture Code(s): S82.209A - UNSP FRACTURE OF SHAFT OF UNSP TIBIA, INIT FOR CLOS FX; S82.409A - UNSP FRACTURE OF SHAFT OF UNSP FIBULA, INIT FOR CLOS FX SNOMED Code (s): 209754327 Comment: - Right - Management per ortho. Resplinted 04/30 in OR. - Plan for cast on Friday05/05/17 - NWB right LE (2) Alcohol withdrawal Code(s): F10.239 - ALCOHOL DEPENDENCE WITH WITHDRAWAL, UNSPECIFIED SNOMED Code (s): 786436117 Comment: - No signs of withdrawl - DC WAM and prn ativan - Continue vitamins (3) Atrial flutter Code(s): I48.92 - UNSPECIFIED ATRIAL FLUTTER SNOMED Code(s): 3787600 Comment: - NSR on tele - Appreciate cardiology input - EKG consistent with aflutter with rates up to the 180s. Converted with metoprolol - CHADS2-Vasc score of 3. Antiocagulation not initiated due to high fall risk and single provoked episode of atrial flutter. 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 Unclear what her psych history or dx is. - Per nursing staff she has reported inappropriate comments about male providers. - Psych consult, pending. Would appreciate any input regarding medications or treatment plan for this patient moving forward. Most likely she will go to subacute rehab. (5) UTI (urinary tract infection) Comment: - Culture grew pansensitive E. coli - Completed 4 day course of Ceftriaxone (6) COPD (chronic obstructive pulmonary disease) Code(s): J44.9 - CHRONIC OBSTRUCTIVE PULMONARY DISEASE, UNSPECIFIED SNOMED Code(s): 37806022 Comment: - No signs of exacerbation - Continue with Dulera and PRN nebulizers (7) Hypertension Code(s): I10 - ESSENTIAL (PRIMARY) HYPERTENSION SNOMED Code(s): 63167720 Comment: - SBP 110-140's - No medications outpatient - Continue metoprolol (8) Osteoporosis Code(s): M81.0 - AGE-RELATED OSTEOPOROSIS W/O CURRENT PATHOLOGICAL FRACTURE SNOMED Code(s): 26800821 Comment: - Severe per leg X-ray. T-score in 2017 in lumbar spine and radius -1.2 and - 2.6 respectively - Unable to do internal fixation due to poor bone density. - Alcoholism likely contributing. - Continue risendronate on discharge. - Consider referral for Forteo therapy. T3 and T4 low. Check vitamin D level. (9) Thyroid nodule Code(s): E04.1 - NONTOXIC SINGLE THYROID NODULE SNOMED Code(s): 674623048 Comment: - Previously evaluated by endocrinology. - Euthyroid to hypothyroid. (10) DVT prophylaxis Code(s): TJB1713 - SNOMED Code(s): 172252084 Comment: - Heparin SQ (11) Full code status Code(s): Z78.9 - OTHER SPECIFIED HEALTH STATUS SNOMED Code(s): 178962263 Status and Disposition: Inpatient. Tentative plan for Casting with orthopedics on Friday and Psych consult pending. Will likely need RENATE at discharge.
[2017-05-04] MEDS: DULoxetine DR CAP* 60 MG CAP.DR PO SCH (13:04)
[2017-05-04] MEDS ORDERED: Magnesium Sulfate 2 GM IV* 2 GM/50 ML BAG IVPB ONE (14:11)
[2017-05-04] MEDS: Magnesium Oxide TAB* 400 MG PO SCH (14:36)
--- NOTE | 2017-05-05 03:01 | CONS ---
CONSULTATION REPORT: DATE OF CONSULT: 05/04/17 ATTENDING CLINICIAN: Pilar Bernard NP CONSULTING PHYSICIAN: Keith Simpson MD REASON FOR CONSULT: Does the patient have a personality disorder? SUBJECTIVE HISTORY: Psychiatry is asked to see this 66-year-old, single white female with a past history of chronic alcoholism due to questions about her personality structure given the fact that she has been attention seeking and made odd statements, seeming also to make sexually suggestive remarks to staff members. I note that the patient has a different hospitalist attending than the clinician who made the consultation request. When I spoke with Ms. Jens Bernard, she indicated that she was not quite certain why Psychiatry was consulted other than there were questions about the patient's personality functioning. Apparently, the patient had bizarre behavior and had made inappropriate statements in particular about male providers. She is a chronic alcoholic and had fallen, breaking her leg resulting in a fracture that requires casting of her right lower extremity. The patient has suffered alcohol withdrawal and has been on the [facility] protocol and Orthopedics has been involved throughout. Looking over her chart, I see that on the date of May 03, at 7 in the morning, she made statements to the effect that "werewolves and vampires were out in the aldrich." That nursing assessment also comments that the patient was sexually suggestive and attention seeking. When I meet with the patient, she is unaware that Psychiatry is being asked to see her. She seems somewhat indifferent to my presence. She denies that she has any past history of psychiatric issues, although she does state that her outpatient primary care provider, Dr. Echols on [facility] in [place], treats her with duloxetine for a history of anxiety. She also states that 4 to 5 years ago , she saw a therapist at [facility] similarly for anxiety problems. Other than this, she denies any history of psychiatric disturbance. In particular, she denies any history of diagnosed personality disorders. I screened her for neuro- vegetative symptoms of depression, which she denied all of. She also denied symptoms of ale, PTSD, or psychosis. I do note some speech latency with her and at times it is uncertain if she truly understands my questions. An example of this is when I ask her about substance abuse rehab, which she apparently refused, she states "Nobody ever talked to me about this." This statement is contradicted by the note placed by the social work service on the 01 of May in which it was clearly stated that they discussed alcohol treatment services, which the patient declined stating that she goes to . When I ask her about alcohol, she is minimizing stating that she only had a recent binge, but other than this, has been sober. She does have an Alcoholics Anonymous sponsor and states that this woman does not know about her relapse. PAST PSYCHIATRIC HISTORY: The patient indicates that she had a therapist at [facility] and that she received duloxetine for anxiety from Dr. Echols. Other than this, she denies any psychiatric hospitalizations or further psychiatric med management. She denies any history of suicidality, violence towards others, any history of abuse. PAST MEDICAL HISTORY: Significant for Wernicke's encephalopathy, tachycardia, osteoporosis, multinodular goiter, COPD, hypercalcemia, cataracts, multiple surgeries of the right lower legs following injuries, total right knee replacement. SUBSTANCE ABUSE HISTORY: The patient states that she was treated at [facility], both inpatient and outpatient, and she has been to [facility] as recently as 2013 mostly for alcohol. She is not a tobacco abuser and denies any history of illicit substance abuse. She insists that she is an active participant in AA groups. MEDICATIONS: Her medications on an outpatient basis include: 1. Spiriva. 2. Trazodone 50 mg at bedtime as needed. 3. Cymbalta 60 mg daily. 4. Zinc. 5. Symbicort. 6. Calcium. 7. Vitamin D. 8. Multivitamins. 9. Vitamin B12. 10. Actonel. ALLERGIES: She is allergic to CODEINE and INSECTS. FAMILY HISTORY: Psychiatric disorders is denied. SOCIAL HISTORY: The patient lives here in [place]. 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 She is currently unemployed. Her family lives in [place]. She has limited local support. She lives alone and has no pets. MENTAL STATUS EXAMINATION: The patient is an ageing white female who appears to be slightly older than her stated age with curly and frayed hair, dressed in a patient gown, lying supine with her head slightly propped up in bed. She makes fairly good eye contact, although it is somewhat difficult to establish a rapport with her. At times, her speech shows mild latency. Mood appears to be euthymic with a somewhat blunted affect. Thought process is linear with some signs of impoverishment. Thought content is significant for her desire to be discharged to home. She denies suicidal or homicidal ideations. She denies auditory or visual hallucinations, although staff reported that she was having visual hallucinations earlier in her hospital course. Insight and judgment appear to be poor given the fact that she is not considering rehab for either alcohol or for her physical health. Cognitively, she is awake and alert with what would appear to be an average intellect. DIAGNOSES: Brayton I: Alcohol withdrawal delirium; alcohol use disorder. Brayton II: Deferred. ASSESSMENT: Psychiatry is asked to see this 66-year-old, single white female with a history of alcohol dependence and alcohol withdrawal due to odd statements, bizarre behavior, attention seeking, and sexually inappropriate comments, specifically the clinician who requested the consult wanted to know whether the patient had a personality disorder. It should be noted that personality disorders can typically not be diagnosed after one interview, but are typically the result of observations made over time in a clinical setting. The most striking area of pathology for this patient is her alcoholism, which is not in remission despite her words to the contrary. I do feel that this patient would benefit from substance abuse rehabilitation and I would invite the primary team to have further conversations with her about this. It would also appear that she would benefit from physical rehabilitation as well and the physical issues may take some priority at this point. At any rate, the patient is not in any need of psychiatric medication and she is declining the offer of outpatient mental health treatment. She does not endorse having any active mental health symptoms at this time. Psychiatry will be signing off, although we are grateful for the interesting consult. Feel free to reconsult us in the event that her presentation changes or further information is required. [id number]/[facility] #: [id number] JOSSELIN
[2017-05-05] MEDS: Acetaminophen TAB* 325 MG PO PRN ×3 (04:31→22:16)
[2017-05-05 05:40] LABS: EGFR Non-African American 193.2 (>60)
[2017-05-05] MEDS: Heparin VIAL(*) 5000 UNITS/ML VIAL (FIVE THOUSAND) SUBCUT SCH ×3 (07:03→21:49)
--- NOTE | 2017-05-05 09:00 | PN ---
Subjective Date of Service: 05/05/17 Interval History: Patient seen and examined at bedside. Denies fever, chills, shortness of breath , chest discomfort, N/V/D. Pt states that her pain is controlled with the current pain medication she is taking. Pt would like to have her splint changed today, it is itchy. Tele: Sinus rhythm, rate 80-90's. Family History: Unchanged from Admission Social History: Unchanged from Admission Past Medical History: Unchanged from Admission Objective Active Medications: Acetaminophen (Tylenol Tab*) 650 mg PO Q4H PRN Reason: PAIN Albuterol/Ipratropium (Duoneb (Albuterol 2.5 Mg/Ipratropium 0.5 Mg)) 1 neb INH Q6H PRN Reason: SOB/WHEEZING Duloxetine HCl (Cymbalta Cap*) 60 mg PO 1200 BEBETO Folic Acid (Folvite Tab*) 1 mg PO DAILY [facility] Heparin Sodium (Porcine) (Heparin Vial(*)) 5,000 units SUBCUT Q8HR [facility] Magnesium Oxide (Magox 400 Tab*) 800 mg PO DAILY [facility] Metoprolol Tartrate (Lopressor Tab*) 25 mg PO BID [facility]O Mometasone Furoate/Formoterol Fumar (Dulera 100/5 Mdi*) 2 puff INH BID PRN Reason: SHORTNESS OF BREATH Multivitamins/Minerals (Theragran/Minerals Tab*) 1 tab PO DAILY [facility] Thiamine HCl (Vitamin B-1 Tab*) 100 mg PO DAILY [facility] Vital Signs - 8 hr 05/05/17 05/05/17 05/05/17 03:49 07:51 07:57 Temperature 99.1 F Pulse Rate 82 85 Respiratory 18 16 18 Rate Blood Pressure 130/68 (mmHg) O2 Sat by Pulse 92 92 Oximetry Oxygen Devices in Use Now: None Appearance: NAD, sitting up in bed Ears/Nose/Mouth/Throat: Mucous Membranes Moist Respiratory: Symmetrical Chest Expansion and Respiratory Effort, Clear to Auscultation Cardiovascular: NL Sounds; No Murmurs; No JVD, RRR Abdominal: NL Sounds; No Tenderness; No Distention Skin: - - Splin to right LE intact Neurological: Alert and Oriented x 3, NL Muscle Strength and Tone Lines/Tubes/Other Access: Clean, Dry and Intact Peripheral IV - site benign Nutrition: Taking PO's Result Diagrams: 05/04/17 05:53 05/05/17 04:55 Assess/Plan/Problems-Billing Assessment: Ms. Larsen is a 66yo female with a PMH of Alcohol abuse, SVT, osteoporosis, COPD who presents with a mechanical fall resulting in a right sided tibia and fibula fracture. - Patient Problems (1) Tibia/fibula fracture Code(s): S82.209A - UNSP FRACTURE OF SHAFT OF UNSP TIBIA, INIT FOR CLOS FX; S82.409A - UNSP FRACTURE OF SHAFT OF UNSP FIBULA, INIT FOR CLOS FX SNOMED Code (s): 706607913 Comment: - Right - Management per ortho. Resplinted 04/30 in OR. - Plan for cast later today - NWB right LE (2) Alcohol withdrawal Code(s): F10.239 - ALCOHOL DEPENDENCE WITH WITHDRAWAL, UNSPECIFIED SNOMED Code (s): 046071728 Comment: - No signs of withdrawl - DC WAM and prn ativan - Continue vitamins (3) Hypomagnesemia Code(s): E83.42 - HYPOMAGNESEMIA SNOMED Code(s): 344072858 Comment: - Resolved - Received replacement yesterday (4) Atrial flutter Code(s): I48.92 - UNSPECIFIED ATRIAL FLUTTER SNOMED Code(s): 2092381 Comment: - NSR on tele - Appreciate cardiology input - EKG consistent with aflutter with rates up to the 180s. Converted with metoprolol - CHADS2-Vasc score of 3. Antiocagulation not initiated due to high fall risk and single provoked episode of atrial flutter. Anticoagulation should be reconsidered if recurs - Continue Metoprolol Q12 hr (5) Abnormal behavior Code(s): R46.89 - OTHER SYMPTOMS AND SIGNS INVOLVING APPEARANCE AND BEHAVIOR SNOMED Code(s): 34592260 Comment: - History wernicke's encephalopathy - it is obvious that patient has underlying personality disorder. Unclear what her psych history or dx is. - Per nursing staff she has reported inappropriate comments about male providers. - Psych consult, input appreciated (6) UTI (urinary tract infection) Comment: - Culture grew pansensitive E. coli - Completed 4 day course of Ceftriaxone (7) COPD (chronic obstructive pulmonary disease) Code(s): J44.9 - CHRONIC OBSTRUCTIVE PULMONARY DISEASE, UNSPECIFIED SNOMED Code(s): 71298504 Comment: - No signs of exacerbation - Continue with Dulera and PRN nebulizers (8) Hypertension Code(s): I10 - ESSENTIAL (PRIMARY) HYPERTENSION SNOMED Code(s): 87151219 Comment: - SBP 110-130's - No medications outpatient - Continue metoprolol (9) Osteoporosis Code(s): M81.0 - AGE-RELATED OSTEOPOROSIS W/O CURRENT PATHOLOGICAL FRACTURE SNOMED Code(s): 95605196 Comment: - Severe per leg X-ray. T-score in 2017 in lumbar spine and radius -1.2 and - 2.6 respectively - Unable to do internal fixation due to poor bone density. - Alcoholism likely contributing. - Continue risendronate on discharge. - Consider referral for Forteo therapy. T3 and T4 low. Check vitamin D level. (10) Thyroid nodule Code(s): E04.1 - NONTOXIC SINGLE THYROID NODULE SNOMED Code(s): 278794387 Comment: - Previously evaluated by endocrinology. - Euthyroid to hypothyroid. (11) DVT prophylaxis Code(s): IMD4333 - SNOMED Code(s): 812599072 Comment: - Heparin SQ (12) Full code status Code(s): Z78.9 - OTHER SPECIFIED HEALTH STATUS SNOMED Code(s): 505758848 Status and Disposition: Inpatient. Tentative plan for Casting with orthopedics today. Will likely need RENATE at discharge.
[2017-05-05] MEDS: Folic Acid TAB* 1 MG PO SCH (10:39)
[2017-05-05] MEDS: Thiamine TAB* 100 MG TAB PO SCH (10:40)
[2017-05-05] MEDS: Magnesium Oxide TAB* 400 MG PO SCH (10:40)
[2017-05-05] MEDS: Multivitamins/Minerals TAB PO SCH (10:40)
[2017-05-05] MEDS: Metoprolol Tartrate TAB* 25 MG PO SCH ×2 (10:40→21:49)
[2017-05-05] MEDS: DULoxetine DR CAP* 60 MG CAP.DR PO SCH (12:32)
[2017-05-05] MEDS ORDERED: Midazolam* 1 MG/ML 2 ML VIAL (2 MG) ONE (14:08)
[2017-05-05] MEDS ORDERED: Lidocaine 2% PF * 5 ML VIAL ONE (14:09)
[2017-05-05] MEDS ORDERED: Ondansetron INJ* 2 MG/ML VIAL ONE (14:09)
[2017-05-05] MEDS ORDERED: Propofol* 10 MG/ML 20 ML BTL IV PUSH ONE (14:09)
[2017-05-05] MEDS ORDERED: Metoclopramide IV* 5 MG/ML 2 ML VIAL ONE (14:09)
[2017-05-05] MEDS ORDERED: Dexamethasone IV* 4 MG/ML 1 ML (4 MG) ONE (14:09)
[2017-05-05] MEDS ORDERED: Metoprolol Tartrate TAB* 25 MG PO ONE (14:31)
[2017-05-05] MEDS ORDERED: Sodium Citrate/Citric Acid* 15 ML UDC ONE (14:32)
[2017-05-05] MEDS ORDERED: Sodium Citrate/Citric Acid* 15 ML UDC PO ONE (14:32)
[2017-05-05] MEDS ORDERED: Metoprolol Tartrate TAB* 25 MG ONE (14:32)
[2017-05-05] MEDS ORDERED: fentaNYL* 50 MCG/ML 2 ML VIAL (100 MCG VIAL) IV PRN (15:45)
[2017-05-05] MEDS ORDERED: Naloxone* 0.4 MG/ML 1 ML VIAL IV PRN (15:45)
[2017-05-05] MEDS ORDERED: DiMENhydriNATE IV* 50 MG/ML VIAL IV PUSH PRN (15:45)
[2017-05-05] MEDS ORDERED: fentaNYL* 50 MCG/ML 2 ML VIAL (100 MCG VIAL) ONE (15:52)
[2017-05-06] MEDS: Heparin VIAL(*) 5000 UNITS/ML VIAL (FIVE THOUSAND) SUBCUT SCH ×3 (05:59→22:13)
[2017-05-06] MEDS: Multivitamins/Minerals TAB PO SCH (08:23)
[2017-05-06] MEDS: Metoprolol Tartrate TAB* 25 MG PO SCH ×2 (08:23→19:52)
[2017-05-06] MEDS: Magnesium Oxide TAB* 400 MG PO SCH (08:23)
[2017-05-06] MEDS: Thiamine TAB* 100 MG TAB PO SCH (08:23)
[2017-05-06] MEDS: Folic Acid TAB* 1 MG PO SCH (08:24)
[2017-05-06] MEDS: Acetaminophen TAB* 325 MG PO PRN ×2 (08:27→19:52)
[2017-05-06] MEDS: DULoxetine DR CAP* 60 MG CAP.DR PO SCH (12:23)
--- NOTE | 2017-05-06 14:21 | OP ---
DATE OF OPERATION: 05/05/17 - ROOM #412 DATE OF : 52 SURGEON: Solomon Morillo MD PRE-OP DIAGNOSIS: Right proximal tibia fracture. POST-OP DIAGNOSIS: Right proximal tibia fracture. OPERATIVE PROCEDURE: Application of cast brace right long leg with general anesthesia. DESCRIPTION OF PROCEDURE: The patient was taken to the operating room where LMA was performed. We removed the previous splint, applied a short leg cast, well padded up to the knee and then a thigh cuff with fiberglass as well. We used DonJoy hinges on medial and lateral side attached also with fiberglass with the knee flexed to 45 degrees. The overall alignment appeared satisfactory. The patient's proximal fracture was still a closed injury but significant ecchymosis noted. All soft tissues were soft. [id number]/[facility] #: [id number] MTDD
--- NOTE | 2017-05-06 16:21 | PN ---
Progress Note - Progress Note Date of Service: 05/06/17 SOAP: Subjective: []Patient seen at bedside. She is feeling comfortable with no right leg pain and no complaints. Denies CP, SOB, nausea or dizziness Objective: [] Temp Pulse Resp BP Pulse Ox 99.4 F 77 16 115/61 96 05/06/17 07:08 05/06/17 07:08 05/06/17 07:32 05/06/17 07:08 05/06/17 07:32 Laboratory Last Values WBC 7.7 10^3/ul (3.5-10.8) 05/04/17 05:53 RBC 3.80 10^6/ul (4.0-5.4) L 05/04/17 05:53 Hgb 12.9 g/dl (12.0-16.0) 05/04/17 05:53 Hct 38 % (35-47) 05/04/17 05:53 MCV 99 fL (80-97) H 05/04/17 05:53 MCH 34 pg (27-31) H 05/04/17 05:53 MCHC 34 g/dl (31-36) 05/04/17 05:53 RDW 14 % (10.5-15) 05/04/17 05:53 Plt Count 160 10^3/ul (150-450) 05/04/17 05:53 MPV 7 um3 (7.4-10.4) L 05/04/17 05:53 Neut % (Auto) 85.2 % (38-83) H 05/04/17 05:53 Lymph % (Auto) 5.8 % (25-47) L 05/04/17 05:53 Woodson % (Auto) 8.0 % (0-7) H 05/04/17 05:53 Eos % (Auto) 0.8 % (0-6) 05/04/17 05:53 Baso % (Auto) 0.2 % (0-2) 05/04/17 05:53 Absolute Neuts (auto) 6.6 10^3/ul (1.5-7.7) 05/04/17 05:53 Absolute Lymphs (auto) 0.4 10^3/ul (1.0-4.8) L 05/04/17 05:53 Absolute Monos (auto) 0.6 10^3/ul (0-0.8) 05/04/17 05:53 Absolute Eos (auto) 0.1 10^3/ul (0-0.6) 05/04/17 05:53 Absolute Basos (auto) 0 10^3/ul (0-0.2) 05/04/17 05:53 Absolute Nucleated RBC 0 10^3/ul 05/04/17 05:53 Nucleated RBC % 0 05/04/17 05:53 INR (Anticoag Therapy) 0.78 (0.77-1.02) 05/01/17 15:14 APTT 34.1 seconds (26.0-36.3) 05/01/17 15:14 Sodium 133 mmol/L (133-145) 05/05/17 04:55 Potassium 4.1 mmol/L (3.5-5.0) 05/05/17 04:55 Chloride 101 mmol/L (101-111) 05/05/17 04:55 Carbon Dioxide 26 mmol/L (22-32) 05/05/17 04:55 Anion Gap 6 mmol/L (2-11) 05/05/17 04:55 BUN 7 mg/dL (6-24) 05/05/17 04:55 Creatinine 0.34 mg/dL (0.51-0.95) L 05/05/17 04:55 Est GFR ( Amer) 248.5 (>60) 05/05/17 04:55 Est GFR (Non-Af Amer) 193.2 (>60) 05/05/17 04:55 BUN/Creatinine Ratio 20.6 (8-20) H 05/05/17 04:55 Glucose 111 mg/dL (70-100) H 05/05/17 04:55 Calcium 9.8 mg/dL (8.6-10.3) 05/05/17 04:55 Magnesium 1.9 mg/dL (1.9-2.7) 05/05/17 04:55 Total Bilirubin 0.70 mg/dL (0.2-1.0) 05/02/17 05:02 AST 20 U/L (13-39) 05/02/17 05:02 ALT 15 U/L (7-52) 05/02/17 05:02 Alkaline Phosphatase 48 U/L (34-104) 05/02/17 05:02 Total Creatine Kinase 198 U/L (10-223) 04/29/17 01:33 Troponin I 0.00 ng/mL (<0.04) 04/29/17 01:33 Total Protein 6.2 g/dL (6.4-8.9) L 05/02/17 05:02 Albumin 3.7 g/dL (3.2-5.2) 05/02/17 05:02 Globulin 2.5 g/dL (2-4) 05/02/17 05:02 Albumin/Globulin Ratio 1.5 (1-3) 05/02/17 05:02 25-OH Vitamin D Total 34.3 ng/mL (20-50) 05/04/17 05:53 TSH 0.45 mcIU/mL (0.34-5.60) 04/29/17 01:33 Thyroxine (T4) 3.07 mcg/mL (6.09-12.23) L 04/29/17 01:33 Total T3 0.60 ng/mL (0.87-1.78) L 04/29/17 01:33 Urine Color Yellow 04/29/17 02:55 Urine Appearance Clear 04/29/17 02:55 Urine pH 5.0 (5-9) 04/29/17 02:55 Ur Specific Rawlins 1.014 (1.010-1.030) 04/29/17 02:55 Urine Protein Negative (Negative) 04/29/17 02:55 Urine Ketones Trace (Negative) A 04/29/17 02:55 Urine Blood 1+ (Negative) A 04/29/17 02:55 Urine Nitrate Negative (Negative) 04/29/17 02:55 Urine Bilirubin Negative (Negative) 04/29/17 02:55 Urine Urobilinogen Negative (Negative) 04/29/17 02:55 Ur Leukocyte Esterase Negative (Negative) 04/29/17 02:55 Urine WBC (Auto) 1+(6-10/hpf) (Absent) A 04/29/17 02:55 Urine RBC (Auto) Absent (Absent) 04/29/17 02:55 Ur Squamous Epith Cells Present (Absent) A 04/29/17 02:55 Urine Bacteria Absent (Absent) 04/29/17 02:55 Urine Glucose Negative (Negative) 04/29/17 02:55 Urine Opiates Screen None detected (None Detect) 04/29/17 02:55 Ur Barbiturates Screen None detected (None Detect) 04/29/17 02:55 Ur Phencyclidine Scrn None detected (None Detect) 04/29/17 02:55 Ur Amphetamines Screen None detected (None Detect) 04/29/17 02:55 U Benzodiazepines Scrn None detected (None Detect) 04/29/17 02:55 Urine Cocaine Screen None detected (None Detect) 04/29/17 02:55 U Cannabinoids Screen None detected (None Detect) 04/29/17 02:55 Serum Alcohol 279 mg/dL (<10) H 04/29/17 01:33 General: Well appearing, NAD. Calm and cooperative RLE: Cast with hinged component at knee in place, CDI. Toes with sensation intact to light touch, capillary refill less than two seconds and able to wiggle. No erythema proximal to cast. Assessment: [] Right proximal tibia fracture s/p casting in OR Plan: []NWB RLE Rehab/ SNF at D/C Will continue to follow
--- NOTE | 2017-05-06 19:58 | PN ---
Subjective Date of Service: 05/06/17 Interval History: examined at bedside. denies chest pain or shortness of breath. Denies abd pain n/v/d. states that pain is currently controlled with tylenol. Family History: Unchanged from Admission Social History: Unchanged from Admission Past Medical History: Unchanged from Admission Objective Active Medications: Acetaminophen (Tylenol Tab*) 650 mg PO Q4H PRN PRN Reason: PAIN Last Admin: 05/06/17 08:27 Dose: 650 mg Albuterol/Ipratropium (Duoneb (Albuterol 2.5 Mg/Ipratropium 0.5 Mg)) 1 neb INH Q6H PRN PRN Reason: SOB/WHEEZING Duloxetine HCl (Cymbalta Cap*) 60 mg PO 1200 [facility] Last Admin: 05/06/17 12:23 Dose: 60 mg Folic Acid (Folvite Tab*) 1 mg PO DAILY [facility] Last Admin: 05/06/17 08:24 Dose: 1 mg Heparin Sodium (Porcine) (Heparin Vial(*)) 5,000 units SUBCUT Q8HR [facility] Last Admin: 05/06/17 14:28 Dose: 5,000 units Magnesium Oxide (Magox 400 Tab*) 800 mg PO DAILY [facility] Last Admin: 05/06/17 08:23 Dose: 800 mg Metoprolol Tartrate (Lopressor Tab*) 25 mg PO BID [facility] Last Admin: 05/06/17 08:23 Dose: 25 mg Mometasone Furoate/Formoterol Fumar (Dulera 100/5 Mdi*) 2 puff INH BID PRN PRN Reason: SHORTNESS OF BREATH Multivitamins/Minerals (Theragran/Minerals Tab*) 1 tab PO DAILY [facility] Last Admin: 05/06/17 08:23 Dose: 1 tab Thiamine HCl (Vitamin B-1 Tab*) 100 mg PO DAILY [facility] Last Admin: 05/06/17 08:23 Dose: 100 mg Vital Signs - 8 hr 05/06/17 05/06/17 05/06/17 15:24 16:00 17:54 Temperature 97.9 F 97.9 F Pulse Rate 77 80 Respiratory 20 18 Rate Blood Pressure 96/51 129/71 (mmHg) O2 Sat by Pulse 95 95 95 Oximetry 05/06/17 19:14 Temperature 98.3 F Pulse Rate 85 Respiratory 16 Rate Blood Pressure 108/62 (mmHg) O2 Sat by Pulse 95 Oximetry Oxygen Devices in Use Now: None Appearance: appears comfortable sitting in bed Eyes: No Scleral Icterus Ears/Nose/Mouth/Throat: Clear Oropharnyx, Mucous Membranes Moist Neck: NL Appearance and Movements; NL JVP, Trachea Midline Respiratory: Symmetrical Chest Expansion and Respiratory Effort, Clear to Auscultation Cardiovascular: NL Sounds; No Murmurs; No JVD, No Edema Abdominal: NL Sounds; No Tenderness; No Distention Extremities: No Clubbing, Cyanosis, - - knee with mild swelling, cast intact to lower leg and upper thigh, CMSt's intact to toes on left leg, pedal pulse + 2 on right Skin: No Rash or Ulcers Neurological: Alert and Oriented x 3 Nutrition: Taking PO's Result Diagrams: 05/04/17 05:53 05/05/17 04:55 Assess/Plan/Problems-Billing Assessment: Ms. Larsen is a 66yo female with a PMH of Alcohol abuse, SVT, osteoporosis, COPD who presents with a mechanical fall resulting in a right sided tibia and fibula fracture. - Patient Problems (1) Tibia/fibula fracture Current Visit: Yes Status: Acute Code(s): S82.209A - UNSP FRACTURE OF SHAFT OF UNSP TIBIA, INIT FOR CLOS FX; S82.409A - UNSP FRACTURE OF SHAFT OF UNSP FIBULA, INIT FOR CLOS FX SNOMED Code(s): 833898320 Comment: - Right - Management per ortho. casted last PM - NWB right LE (2) Hypomagnesemia Current Visit: Yes Status: Acute Code(s): E83.42 - HYPOMAGNESEMIA SNOMED Code(s): 130389246 Comment: - Resolved (3) Alcohol withdrawal Current Visit: Yes Status: Acute Code(s): F10.239 - ALCOHOL DEPENDENCE WITH WITHDRAWAL, UNSPECIFIED SNOMED Code(s): 209461712 Comment: - No signs of withdrawl - Continue vitamins (4) Hypertension Current Visit: No Status: Chronic Code(s): I10 - ESSENTIAL (PRIMARY) HYPERTENSION SNOMED Code(s): 24910908 Comment: - SBP 96-123 - No medications outpatient - Continue metoprolol~ may need to adjust dose (5) DVT prophylaxis Current Visit: Yes Status: Acute Code(s): XNB9408 - SNOMED Code(s): 319321093 Comment: - Heparin SQ (6) Full code status Current Visit: Yes Status: Acute Code(s): Z78.9 - OTHER SPECIFIED HEALTH STATUS SNOMED Code(s): 952240900 Status and Disposition: Inpatient. Tentative plan for Casting with orthopedics today. Will likely need RENATE at discharge.
[2017-05-07] MEDS: Heparin VIAL(*) 5000 UNITS/ML VIAL (FIVE THOUSAND) SUBCUT SCH ×2 (05:26→14:11)
[2017-05-07] MEDS: Metoprolol Tartrate TAB* 25 MG PO SCH (09:15)
[2017-05-07] MEDS: Folic Acid TAB* 1 MG PO SCH (09:15)
[2017-05-07] MEDS: Multivitamins/Minerals TAB PO SCH (09:16)
[2017-05-07] MEDS: Thiamine TAB* 100 MG TAB PO SCH (09:16)
[2017-05-07] MEDS: Magnesium Oxide TAB* 400 MG PO SCH (09:17)
--- NOTE | 2017-05-07 12:01 | PN ---
Progress Note - Progress Note Date of Service: 05/07/17 SOAP: Subjective: []Patient seen at bedside. Her RLE is not painful. She desires discharge home. Discussed recommendation of short term rehab which she refuses due to "things I can only do at home" with mention of computer work on home computer. Objective: [] General: Well appearing, NAD. Calm and cooperative. Carries on appropriate conversation. RLE: Cast with hinged component at knee in place, CDI. Toes nonerythematous, nonedematous with sensation intact to light touch, capillary refill less than two seconds and able to wiggle. No erythema of knee/ exposed portion of thigh. Knee ROM 5-30 degrees without pain. Vital Signs Temp 98.9 F 05/07/17 07:51 Pulse 75 05/07/17 09:23 Resp 16 05/07/17 09:51 BP 116/72 05/07/17 07:51 Pulse Ox 97 05/07/17 09:23 Intake & Output 05/06/17 05/07/17 05/07/17 18:59 06:59 18:59 Intake Total 1350 200 Output Total 0 Balance 1350 200 Intake: IV Fluids 0 NS (0.9%) 0 Oral 1350 200 Output: Urine 0 Other: Estimated Void Medium # Voids 1 Laboratory Last Values WBC 7.7 10^3/ul (3.5-10.8) 05/04/17 05:53 RBC 3.80 10^6/ul (4.0-5.4) L 05/04/17 05:53 Hgb 12.9 g/dl (12.0-16.0) 05/04/17 05:53 Hct 38 % (35-47) 05/04/17 05:53 MCV 99 fL (80-97) H 05/04/17 05:53 MCH 34 pg (27-31) H 05/04/17 05:53 MCHC 34 g/dl (31-36) 05/04/17 05:53 RDW 14 % (10.5-15) 05/04/17 05:53 Plt Count 160 10^3/ul (150-450) 05/04/17 05:53 MPV 7 um3 (7.4-10.4) L 05/04/17 05:53 Neut % (Auto) 85.2 % (38-83) H 05/04/17 05:53 Lymph % (Auto) 5.8 % (25-47) L 05/04/17 05:53 [place] % (Auto) 8.0 % (0-7) H 05/04/17 05:53 Eos % (Auto) 0.8 % (0-6) 05/04/17 05:53 Baso % (Auto) 0.2 % (0-2) 05/04/17 05:53 Absolute Neuts (auto) 6.6 10^3/ul (1.5-7.7) 05/04/17 05:53 Absolute Lymphs (auto) 0.4 10^3/ul (1.0-4.8) L 05/04/17 05:53 Absolute Monos (auto) 0.6 10^3/ul (0-0.8) 05/04/17 05:53 Absolute Eos (auto) 0.1 10^3/ul (0-0.6) 05/04/17 05:53 Absolute Basos (auto) 0 10^3/ul (0-0.2) 05/04/17 05:53 Absolute Nucleated RBC 0 10^3/ul 05/04/17 05:53 Nucleated RBC % 0 05/04/17 05:53 INR (Anticoag Therapy) 0.78 (0.77-1.02) 05/01/17 15:14 APTT 34.1 seconds (26.0-36.3) 05/01/17 15:14 Sodium 133 mmol/L (133-145) 05/05/17 04:55 Potassium 4.1 mmol/L (3.5-5.0) 05/05/17 04:55 Chloride 101 mmol/L (101-111) 05/05/17 04:55 Carbon Dioxide 26 mmol/L (22-32) 05/05/17 04:55 Anion Gap 6 mmol/L (2-11) 05/05/17 04:55 BUN 7 mg/dL (6-24) 05/05/17 04:55 Creatinine 0.34 mg/dL (0.51-0.95) L 05/05/17 04:55 Est GFR ( Amer) 248.5 (>60) 05/05/17 04:55 Est GFR (Non-Af Amer) 193.2 (>60) 05/05/17 04:55 BUN/Creatinine Ratio 20.6 (8-20) H 05/05/17 04:55 Glucose 111 mg/dL (70-100) H 05/05/17 04:55 Calcium 9.8 mg/dL (8.6-10.3) 05/05/17 04:55 Magnesium 1.9 mg/dL (1.9-2.7) 05/05/17 04:55 Total Bilirubin 0.70 mg/dL (0.2-1.0) 05/02/17 05:02 AST 20 U/L (13-39) 05/02/17 05:02 ALT 15 U/L (7-52) 05/02/17 05:02 Alkaline Phosphatase 48 U/L (34-104) 05/02/17 05:02 Total Creatine Kinase 198 U/L (10-223) 04/29/17 01:33 Troponin I 0.00 ng/mL (<0.04) 04/29/17 01:33 Total Protein 6.2 g/dL (6.4-8.9) L 05/02/17 05:02 Albumin 3.7 g/dL (3.2-5.2) 05/02/17 05:02 Globulin 2.5 g/dL (2-4) 05/02/17 05:02 Albumin/Globulin Ratio 1.5 (1-3) 05/02/17 05:02 25-OH Vitamin D Total 34.3 ng/mL (20-50) 05/04/17 05:53 TSH 0.45 mcIU/mL (0.34-5.60) 04/29/17 01:33 Thyroxine (T4) 3.07 mcg/mL (6.09-12.23) L 04/29/17 01:33 Total T3 0.60 ng/mL (0.87-1.78) L 04/29/17 01:33 Urine Color Yellow 04/29/17 02:55 Urine Appearance Clear 04/29/17 02:55 Urine pH 5.0 (5-9) 04/29/17 02:55 Ur Specific [place] 1.014 (1.010-1.030) 04/29/17 02:55 Urine Protein Negative (Negative) 04/29/17 02:55 Urine Ketones Trace (Negative) A 04/29/17 02:55 Urine Blood 1+ (Negative) A 04/29/17 02:55 Urine Nitrate Negative (Negative) 04/29/17 02:55 Urine Bilirubin Negative (Negative) 04/29/17 02:55 Urine Urobilinogen Negative (Negative) 04/29/17 02:55 Ur Leukocyte Esterase Negative (Negative) 04/29/17 02:55 Urine WBC (Auto) 1+(6-10/hpf) (Absent) A 04/29/17 02:55 Urine RBC (Auto) Absent (Absent) 04/29/17 02:55 Ur Squamous Epith Cells Present (Absent) A 04/29/17 02:55 Urine Bacteria Absent (Absent) 04/29/17 02:55 Urine Glucose Negative (Negative) 04/29/17 02:55 Urine Opiates Screen None detected (None Detect) 04/29/17 02:55 Ur Barbiturates Screen None detected (None Detect) 04/29/17 02:55 Ur Phencyclidine Scrn None detected (None Detect) 04/29/17 02:55 Ur Amphetamines Screen None detected (None Detect) 04/29/17 02:55 U Benzodiazepines Scrn None detected (None Detect) 04/29/17 02:55 Urine Cocaine Screen None detected (None Detect) 04/29/17 02:55 U Cannabinoids Screen None detected (None Detect) 04/29/17 02:55 Serum Alcohol 279 mg/dL (<10) H 04/29/17 01:33 Assessment: [] Right proximal tibia fracture s/p casting in OR Plan: []NWB RLE Recommend rehab/ SNF at D/C, patient refuses. PT assessment this AM with reports safe bed mobility, transfers and ambulation. FU Dr Morillo next week
[2017-05-07] MEDS: DULoxetine DR CAP* 60 MG CAP.DR PO SCH (12:32)
[2017-05-07] MEDS: Acetaminophen TAB* 325 MG PO PRN (12:32)
--- NOTE | 2017-05-07 15:38 | PN ---
Subjective Date of Service: 05/07/17 Family History: Unchanged from Admission Social History: Unchanged from Admission Past Medical History: Unchanged from Admission Objective Active Medications: Acetaminophen (Tylenol Tab*) 650 mg PO Q4H PRN PRN Reason: PAIN Last Admin: 05/07/17 12:32 Dose: 650 mg Albuterol/Ipratropium (Duoneb (Albuterol 2.5 Mg/Ipratropium 0.5 Mg)) 1 neb INH Q6H PRN PRN Reason: SOB/WHEEZING Duloxetine HCl (Cymbalta Cap*) 60 mg PO 1200 [facility] Last Admin: 05/07/17 12:32 Dose: 60 mg Folic Acid (Folvite Tab*) 1 mg PO DAILY [facility] Last Admin: 05/07/17 09:15 Dose: 1 mg Heparin Sodium (Porcine) (Heparin Vial(*)) 5,000 units SUBCUT Q8HR [facility] Last Admin: 05/07/17 14:11 Dose: 5,000 units Magnesium Oxide (Magox 400 Tab*) 800 mg PO DAILY [facility] Last Admin: 05/07/17 09:17 Dose: 800 mg Metoprolol Tartrate (Lopressor Tab*) 25 mg PO BID [facility] Last Admin: 05/07/17 09:15 Dose: 25 mg Mometasone Furoate/Formoterol Fumar (Dulera 100/5 Mdi*) 2 puff INH BID PRN PRN Reason: SHORTNESS OF BREATH Multivitamins/Minerals (Theragran/Minerals Tab*) 1 tab PO DAILY [facility] Last Admin: 05/07/17 09:16 Dose: 1 tab Thiamine HCl (Vitamin B-1 Tab*) 100 mg PO DAILY [facility] Last Admin: 05/07/17 09:16 Dose: 100 mg Vital Signs - 8 hr 05/07/17 05/07/17 05/07/17 07:51 08:00 09:23 Temperature 98.9 F Pulse Rate 76 75 Respiratory 16 14 Rate Blood Pressure 116/72 (mmHg) O2 Sat by Pulse 97 97 97 Oximetry 05/07/17 09:51 Temperature Pulse Rate Respiratory 16 Rate Blood Pressure (mmHg) O2 Sat by Pulse Oximetry Oxygen Devices in Use Now: None Result Diagrams: 05/04/17 05:53 05/05/17 04:55 Assess/Plan/Problems-Billing Assessment: Ms. Larsen is a 66yo female with a PMH of Alcohol abuse, SVT, osteoporosis, COPD who presents with a mechanical fall resulting in a right sided tibia and fibula fracture. - Patient Problems (1) Tibia/fibula fracture Status: Acute Code(s): S82.209A - UNSP FRACTURE OF SHAFT OF UNSP TIBIA, INIT FOR CLOS FX; S82.409A - UNSP FRACTURE OF SHAFT OF UNSP FIBULA, INIT FOR CLOS FX SNOMED Code(s): 670686694 Comment: - Right - Management per ortho. casted last PM - NWB right LE follow up with ortho in 1 week (2) Hypomagnesemia Status: Acute Code(s): E83.42 - HYPOMAGNESEMIA SNOMED Code(s): 923353600 Comment: - Resolved (3) Alcohol withdrawal Status: Acute Code(s): F10.239 - ALCOHOL DEPENDENCE WITH WITHDRAWAL, UNSPECIFIED SNOMED Code(s): 989277267 Comment: - No signs of withdrawl - Continue vitamins (4) Hypertension Status: Chronic Code(s): I10 - ESSENTIAL (PRIMARY) HYPERTENSION SNOMED Code( s): 13029908 Comment: - SBP 96-123 Decrease dose to 25 mg po daily ~ advised to follow up with PMD for further management - Continue metoprolol~ may need to adjust dose (5) DVT prophylaxis Status: Acute Code(s): CMH6657 - SNOMED Code(s): 566876306 Comment: - Heparin SQ~ will change to ASA 325 mg at discharge for 30 days as per orthopedics recommendation (6) Full code status Status: Acute Code(s): Z78.9 - OTHER SPECIFIED HEALTH STATUS SNOMED Code(s) : 397322831 Status and Disposition: Patient refused short term rehab, refused visiting nursing service, refused outpatient rehab for alcohol abuse..
[2017-05-07 16:48] VITALS: BP 110/64
--- NOTE | 2017-05-09 07:01 | DS ---
DISCHARGE SUMMARY: DATE OF ADMISSION: 04/29/17 DATE OF DISCHARGE: 05/07/17 ATTENDING PHYSICIAN: Dr. Quan Ayala * (dictated by Elham Camacho NP). PRIMARY CARE PROVIDER: Dr. Hector Echols. PRIMARY DIAGNOSES: Right tibial fracture and right fibula fracture. SECONDARY DIAGNOSES: 1. Osteoporosis. 2. Anxiety. 3. Multinodular goiter. 4. Chronic obstructive pulmonary disease. 5. Alcohol abuse. 6. Tobacco abuse. 7. Multiple surgeries to right lower leg after injuries and after climbing and a fall. 8. Right total knee replacement. STUDIES COMPLETED WHILE IN THE HOSPITAL: On 04/29/17, she had an ankle x-ray, radiologist's impression: Fracture at the right tibial proximal metaphysis exhibiting 20 degrees of anterior angulation. She had an x-ray of the lower extremity, fracture of the right tibial proximal metaphysis exhibiting 20 degrees of anterior angulation. She had a CT of the right lower extremity, radiologist's impression: Nonarticular tibial and fibula fractures. She had an electrocardiogram done on 04/29/17, which showed sinus rhythm at a rate of 98. She had a repeat EKG done on 04/29/17 at 11:26 a.m. showed sinus tachycardia at a rate of 136. She had a repeat EKG on 04/29/17 at 11:28 showed sinus tachycardia, rate of 145 with ventricular premature complexes. DISCHARGE MEDICATIONS: 1. Enteric-coated aspirin 325 mg p.o. daily. 2. Metoprolol 25 mg p.o. daily. Continued home medications: 1. Acetaminophen 650 mg p.o. q.6 hours as needed for pain. 2. Calcium carbonate plus vitamin D3 1 tablet p.o. daily. 3. Cymbalta 60 mg p.o. daily. 4. Folic acid 0.4 mg p.o. daily. 5. Magnesium 1 tablet p.o. daily. 6. Multivitamin 1 tablet p.o. daily. 7. Risedronate sodium 15 mg p.o. monthly. 8. Thiamine 100 mg p.o. daily. 9. Spiriva 1 cap inhaled daily. 10. Trazodone 50 mg p.o. q.p.m. 11. Vitamin B12 1 tab p.o. daily. 12. Zinc 50 mg p.o. daily. HISTORY OF PRESENT ILLNESS AND HOSPITAL COURSE: Ms. Larsen is a 66-year-old female who lives alone, she carries a history of a right total knee and multiple fractures on the right leg in the past. She reports that she fell late in the evening last night and broke her and sustained an ankle injury. She eventually made it to the emergency room. She states that she had to stay on the floor and crawl slowly to get to the phone. She had a splint applied to her right lower extremity in the emergency room. She was seen and admitted for a proximal tibial and fibula fracture. During her hospitalization, she had an episode of tachycardia, which was deemed to be aflutter. She was given adenosine 6 and 12 mg, which she converted briefly to sinus rhythm. She was then given metoprolol and converted back to sinus rhythm. She also had a fiberglass cast placed on her right lower extremity with flexion at the knee. The patient did have a history of alcohol abuse and during her hospitalization, she was placed on WAM protocol. She had WAM scores as high as 10 and received Ativan as needed. It was discussed with her during her hospitalization and offered her to receive help for her alcohol abuse through inpatient or outpatient rehab. The patient declined inpatient and outpatient rehab services. She was also offered short-term rehab to assist in regaining strength. The patient also declined this service. Our recommendation was that she received short-term rehab. The patient declined the service at this time. The patient is stable for discharge home. She was evaluated by physical therapy and occupational therapy who feel that she is safe for discharge home. At this time, Ms. Larsen will be discharged home. Vital signs are as follows: Temperature was 98.1, heart rate was 71, respirations 18, O2 saturation was 97% , blood pressure 110/64. DISCHARGE PLAN: 1. Ms. Larsen will be discharged back home. 2. Nonweightbearing to her right lower extremity. 3. Activity: As tolerated. She should use a walker when ambulating at home. 4. Diet: She should continue heart healthy diet, low sodium. 5. Her tibial and fibular fracture, she will follow up with Dr. Morillo in 1 week. She should keep her cast clean and dry. She was advised not to shower or get the cast wet. She was advised that she is nonweightbearing to the right lower extremity. 6. She will be placed on aspirin 325 mg p.o. daily for DVT prophylaxis. Lovenox was declined for use by the patient. She is also at an increased risk of bleeding due to her alcohol use and abuse and her risk of falling. So, at this time the safest DVT prophylaxis would be aspirin enteric-coated 325 mg p.o. daily. 7. For her hypertension and rate control, she will continue on metoprolol 25 mg p.o. daily. The dosing was adjusted to once daily due to her being hypotensive to 96/51. 8. She should follow up with Dr. Morillo in 1 week. She should follow up with her primary care doctor, Dr. Echols on 05/13/17 at 2:20. The patient was advised to return to the emergency room for any chest pain or shortness of breath, any loss of sensation in her right lower extremity, cold or pale appearing toes. The patient verbalized understanding. 9. The patient was also offered [facility] home services for evaluation for PT and OT. The patient also declined these services. This is a summary of her hospitalization. For further details, please see the entire medical record. TIME SPENT: Time spent on this discharge was approximately 60 minutes, greater than half that time was spent with the patient discussing discharge plans and instructions. CONDITION AT DISCHARGE: Stable. ELHAM FERNANDO, PARRISH [id number]/CPS #: [id number] MTDD
== END 2017-05-07 17:10 | disposition home or self-care (01) | DRG 563 ==
LOC: ED 00:19 → SSU 02:32 → MEDTELE 13:53 → OBSVTOIN 04-30 13:33 → MEDTELE 05-01 23:46 → MED 05-06 17:26 → UNDODISIN 05-07 14:10
PROVIDERS: ADMIT Orthopaedic Surgery; ATTEND Internal Medicine
PROC: 2W3LX2Z Immobilization of Right Lower Extremity using Cast (ICD-10-PCS; principal; 2017-05-05 10:45)
DX: S82.101A Unspecified fracture of upper end of right tibia, initial encounter for closed fracture (principal); F10.231 Alcohol dependence with withdrawal delirium; J44.9 Chronic obstructive pulmonary disease, unspecified; E83.52 Hypercalcemia; E83.42 Hypomagnesemia; I47.1 Supraventricular tachycardia; S22.32XA Fracture of one rib, left side, initial encounter for closed fracture; I48.92 Unspecified atrial flutter; N39.0 Urinary tract infection, site not specified; S82.401A Unspecified fracture of shaft of right fibula, initial encounter for closed fracture; W01.0XXA Fall on same level from slipping, tripping and stumbling without subsequent striking against object, initial encounter; I10 Essential (primary) hypertension; M81.0 Age-related osteoporosis without current pathological fracture; F41.9 Anxiety disorder, unspecified; E04.2 Nontoxic multinodular goiter; B96.20 Unspecified Escherichia coli [E. coli] as the cause of diseases classified elsewhere; Y90.8 Blood alcohol level of 240 mg/100 ml or more; Z96.651 Presence of right artificial knee joint; Z96.641 Presence of right artificial hip joint; Y92.009 Unspecified place in unspecified non-institutional (private) residence as the place of occurrence of the external cause; Z79.899 Other long term (current) drug therapy; Z88.5 Allergy status to narcotic agent; Z91.048 Other nonmedicinal substance allergy status; Z87.891 Personal history of nicotine dependence
CPT/HCPCS: 36415; 71045; 80048; 80053; 80307; 80320; 81003; 81015; 82306; 82550; 83735; 84436; 84443; 84479; 84484; 85025; 85610; 85730; 87077; 87086; 87186; 93005; 99284; A9270-GY; G0378; G0480; G8978-GP-CI; G8978-GP-CJ; G8979-GP-CI; G8980-GP-CI; J0153; J0696; J1100; J1644; J2060; J2250; J2270; J2405; J2704; J2765; J3010; J3411; J3475; J3490

== ENCOUNTER 2017-09-04 21:01 | Emergency (ER) | payer MEDICARE, BC ==
--- NOTE | 2017-09-04 22:09 | ED ---
Upper Extremity Pain - HPI Summary HPI Summary: This is scribe Toby Nielson documenting for attending Dr. Cong Enrique MD. A 66 y/o female TIP presents to ED c/o right wrist pain due to sudden fall. According to the patient, she fell and couldn't get up so she called 911. The fall happened at home, however, she is not sure how she fell. She noted that she was sitting on cough and watching TV when she ended up on the floor. She stated that she had been drinking earlier which may have something to do with the fall as she had no balance. She noted that because of the fall, she hurt her right wrist, however she is not sure if it is anything to be concerned about. Pt denies any cough, fever or cold. PMHx of rock climbing accident where her right leg was liquidifyed and has had 12 surgeries on it. Since the accident , her right leg is 2 inches shorter than the left. She denies any heart disease , HBP or DM or any head injury with rock climbing accident. SHx of no smoking, however ETOH (today). - History of Current Complaint Chief Complaint: EDExtremityUpper Stated Complaint: 2208 Time Seen by Provider: 09/04/17 21:15 Hx Obtained From: Patient Mechanism Of Injury: Fall From Height Of: - From couch Onset/Duration: Started Hours Ago, Still Present - Pain Timing: Constant Severity Initially: Mild - 3/10 Severity Currently: Mild - 3/10 Pain Location: Wrist - right Aggravating Factor(s): Nothing Alleviating Factor(s): Nothing Associated Signs & Symptoms: Positive: Swelling, Other - Wrist pain - Allergies/Home Medications Allergies/Adverse Reactions: Allergies Allergy/AdvReac Type Severity Reaction Status Date / Time codeine Allergy See Comment Verified 04/29/17 02:13 INSECT Allergy Unknown Uncoded 09/10/16 14:24 Reaction Details Home Medications: Home Medications Acetaminophen TAB* [Tylenol TAB*] 650 mg PO Q4H PRN 09/04/17 [History Confirmed 09/04/17] Aspirin EC TAB* [Ecotrin EC Low Dose 81 MG*] 81 mg PO DAILY 09/04/17 [History Confirmed 09/04/17] DULoxetine DR CAP* [Cymbalta CAP*] 60 mg PO DAILY 09/04/17 [History Confirmed ] Multivitamins/Minerals TAB* [Theragran/minerals TAB*] 1 tab PO DAILY 09/04/17 [ History Confirmed 09/04/17] traZODone TAB* [Desyrel TAB*] 100 mg PO BEDTIME 09/04/17 [History Confirmed ] PMH/Surg Hx/FS Hx/Imm Hx Endocrine/Hematology History: Reports: Hx Thyroid Disease - GOITER STATES IS MONITORED YEARLY Denies: Hx Diabetes, Hx Anemia Cardiovascular History: Denies: Hx Hypertension Respiratory History: Reports: Hx Asthma - spiriva and symbicort Denies: Hx Chronic Obstructive Pulmonary Disease (COPD) GI History: Denies: Hx Jaundice, Hx Ulcer Musculoskeletal History: Reports: Hx Osteoporosis, Other Musculoskeletal History - RIGHT LEG- SEVERAL SURGERIES- FROM ACCIDENT IN 1999 Sensory History: Reports: Hx Cataracts Denies: Hx Contacts or Glasses, Hx Hearing Aid Opthamlomology History: Reports: Hx Cataracts Denies: Hx Contacts or Glasses Psychiatric History: Reports: Hx Anxiety - ON MEDICATION FOR, Hx Depression - ON MEDICATION FOR Denies: Hx Eating Disorder, Hx of Violent Episodes Against Others - Cancer History Hx Chemotherapy: No Hx Radiation Therapy: No - Surgical History Surgery Procedure, Year, and Place: RIGHT HIP/FEMUR/KNEE- X 12 SURGERIES. LEFT HIP HEMIARTHROPLAST. TOTAL RIGHT HIP REPLACEMENT. RIGHT WRIST Hx Anesthesia Reactions: No Infectious Disease History: No Infectious Disease History: Denies: Hx Clostridium Difficile, Hx Hepatitis, Hx Human Immunodeficiency Virus (HIV), Hx of Known/Suspected MRSA, Hx Shingles, Hx Tuberculosis, Hx Known/ Suspected VRE, Hx Known/Suspected VRSA, History Other Infectious Disease, Traveled Outside the [place] in Last 30 Days - Family History Known Family History: Positive: Diabetes Negative: Cardiac Disease, Hypertension - Social History Alcohol Use: Daily Alcohol Amount: "glass of wine with dinner" Hx Substance Use: No Substance Use Type: Reports: None Hx Tobacco Use: Yes Smoking Status (MU): Former Smoker Type: Cigarettes Amount Used/How Often: 3 CIGARETTES PER DAY X 5 YEARS Have You Smoked in the Last Year: No Review of Systems Positive: Other - NEGATIVE: Cold. Negative: Fever Negative: Cough Positive: Other - POSITIVE: Right wrist pain All Other Systems Reviewed And Are Negative: Yes Physical Exam - Summary Physical Exam Summary: Appearance: Well-appearing, Well-nourished, lying in bed comfortably Skin: Warm, dry, no obvious rash. Right wrist swelling Eyes: sclera anicteric, no conjunctival pallor ENT: mucous membranes moist, pharynx appears normal Neck: Supple, nontender Respiratory: Clear to auscultation, no signs of respiratory distress Cardiovascular: Normal S1, S2. No murmurs. Normal distal pulses in tibial and radial bilaterally. Abdomen: Soft, nontender, normal active bowel sounds present Musculoskeletal: Normal, Strength/ROM Intact. Right wrist tenderness without deformity and with mild swelling. Neurological: A&Ox3, awake and alert, mentation is normal, speech is fluent and appropriate Psychiatric: affect is normal, does not appear anxious or depressed Triage Information Reviewed: Yes Vital Signs On Initial Exam: Initial Vitals Temp Pulse Resp BP Pulse Ox 98.3 F 80 20 131/92 91 09/04/17 21:10 09/04/17 21:10 09/04/17 21:10 09/04/17 21:10 09/04/17 21:10 Vital Signs Reviewed: Yes Procedures - Splinting Right Upper Extremity Location: right wrist Hand-Made Type: orthoglass Splint: volar Pre-Proc Neuro Vasc Exam: normal Post-Proc Neuro Vasc Exam: normal Diagnostics - Vital Signs Vital Signs Temp Pulse Resp BP Pulse Ox 09/04/17 21:15 97 131/92 95 09/04/17 21:10 98.3 F 80 20 131/92 91 - Laboratory Lab Statement: Any lab studies that have been ordered have been reviewed, and results considered in the medical decision making process. - Radiology WRIST XR Radiology Interpretation Completed By: ED Physician - Distal radius fracture. Non-displasced and not angulared Re-Evaluation - Re-Evaluation Second Eval Re-Evaluation Time: 20:25 Comment: DISCUSSED RESULTS AND DISCHARGE Course/Dx - Diagnoses Provider Diagnoses: Wrist fracture Discharge - Sign-Out/Discharge Documenting (check all that apply): Patient Departure - DISCHARGE - Discharge Plan Condition: Stable Disposition: HOME Patient Education Materials: Wrist Fracture in Adults (ED), Splint Care (ED) Referrals: Solomon Morillo MD [Medical Doctor] - Hector Echols MD [Primary Care Provider] - 2 Days (FOLLOW UP WITH PCP IN 2-3 DAYS.) Additional Instructions: RETURN TO ED FOR ANY NEW OR WORSENING SYMPTOMS. - Billing Disposition and Condition Condition: STABLE Disposition: Home
[2017-09-04] MEDS ORDERED: Ibuprofen TAB* 400 MG PO ONE (22:24)
[2017-09-04 23:06] VITALS: BP 137/82
--- NOTE | 2017-09-05 07:48 | RAD ---
INDICATION: Right wrist injury. TECHNIQUE: 3 views of the right wrist were obtained. FINDINGS: The bones appear osteopenic. There is deformity of the distal radius most consistent with an old fracture. Recommend clinical correlation. There is widening of the scapholunate joint space consistent with a scapholunate ligament tear. IMPRESSION: 1. FRACTURE OF THE DISTAL RADIUS LIKELY OLD. RECOMMEND CLINICAL CORRELATION. 2. SCAPHOLUNATE LIGAMENT TEAR.
== END 2017-09-04 23:04 | disposition home or self-care (01) ==
LOC: ED 21:01
DX: S52.501A Unspecified fracture of the lower end of right radius, initial encounter for closed fracture (principal); S63.591A Other specified sprain of right wrist, initial encounter; W19.XXXA Unspecified fall, initial encounter; Y93.9 Activity, unspecified; Y92.008 Other place in unspecified non-institutional (private) residence as the place of occurrence of the external cause; J45.909 Unspecified asthma, uncomplicated; F41.9 Anxiety disorder, unspecified; F32.9 Major depressive disorder, single episode, unspecified; Z79.82 Long term (current) use of aspirin; Z96.641 Presence of right artificial hip joint; Z88.5 Allergy status to narcotic agent; Z83.3 Family history of diabetes mellitus; Z87.891 Personal history of nicotine dependence
CPT/HCPCS: 99282; A9270-GY

== ENCOUNTER 2019-01-01 11:36 | Emergency (ER) | payer MEDICARE, BC ==
[2019-01-01 12:06] VITALS: BP 172/101
[2019-01-01] MEDS ORDERED: Azithromycin TAB* 250 MG PO ONE ×2 (12:31→12:32)
--- NOTE | 2019-01-01 12:46 | UC ---
Respiratory Complaint HPI - HPI Summary HPI Summary: 1 WEEK OF PRODUCTIVE COUGH, CONGESTION, SORE THROAT AND FATIGUE. NO FEVER, NAUSEA/VOMITING. - History of Current Complaint Chief Complaint: UCGeneralIllness Stated Complaint: COUGH Time Seen by Provider: 01/01/19 11:56 Hx Obtained From: Patient Onset/Duration: Gradual Onset, Lasting Days, Still Present Timing: Constant Severity Initially: Moderate Severity Currently: Moderate Pain Intensity: 4 Pain Scale Used: 0-10 Numeric Character: Cough: Productive Aggravating Factors: Nothing Alleviating Factors: Nothing Associated Signs And Symptoms: Positive: URI, Nasal Congestion. Negative: Fever , Wheezing - Allergies/Home Medications Allergies/Adverse Reactions: Allergies Allergy/AdvReac Type Severity Reaction Status Date / Time codeine Allergy See Comment Verified 01/01/19 11:56 INSECT Allergy Unknown Uncoded 01/01/19 11:56 Reaction Details PMH/Surg Hx/FS Hx/Imm Hx Respiratory History: COPD - Surgical History Surgical History: Yes Surgery Procedure, Year, and Place: RIGHT HIP/FEMUR/KNEE- X 12 SURGERIES. LEFT HIP HEMIARTHROPLAST. TOTAL RIGHT HIP REPLACEMENT. RIGHT WRIST - Family History Known Family History: Positive: Diabetes Negative: Cardiac Disease, Hypertension - Social History Alcohol Use: None Alcohol Amount: "glass of wine with dinner" Substance Use Type: None Smoking Status (MU): Former Smoker Type: Cigarettes Amount Used/How Often: 3 CIGARETTES PER DAY X 5 YEARS Have You Smoked in the Last Year: No When Did the Patient Quit Smoking/Using Tobacco: 40 yrs ago - Immunization History Most Recent Influenza Vaccination: 2017 Most Recent Pneumonia Vaccination: 2017 Review of Systems All Other Systems Reviewed And Are Negative: Yes Constitutional: Positive: Negative ENT: Positive: Sore Throat, Nasal Discharge Respiratory: Positive: Cough Cardiovascular: Positive: Negative Gastrointestinal: Positive: Negative Physical Exam Triage Information Reviewed: Yes Appearance: Well-Appearing, No Pain Distress, Well-Nourished, Other: - TREMOR - BASELINE PER PT Vital Signs: Initial Vital Signs Temp 96.5 F 01/01/19 11:58 Pulse 101 01/01/19 11:58 Resp 20 01/01/19 11:58 BP 172/101 01/01/19 11:58 Pulse Ox 96 01/01/19 11:58 Vital Signs Reviewed: Yes Eyes: Positive: Conjunctiva Clear ENT: Positive: Hearing grossly normal, Pharyngeal erythema, TMs normal Neck: Positive: Supple, Nontender, No Lymphadenopathy Respiratory Exam: Normal Cardiovascular Exam: Normal Abdomen Description: Positive: Soft Musculoskeletal: Positive: No Edema Neurological: Positive: Alert Psychological: Positive: Age Appropriate Behavior Skin: Negative: Rashes Respiratory Course/Dx - Course Course Of Treatment: LIKELY VIRALLY MEDIATED UPPER RESPIRATORY INFECTION HOWEVER GIVEN THE PATIENT FEELS SHE IS NOT IMPROVING AFTER A FULL WEEK OF ILLNESS AND HAS UNDERLYING COPD WILL GO AHEAD AND COVER WITH AN ANTIBIOTIC. FOLLOW-UP PCP IF SHE IS NOT IMPROVING EXPECTED. - Differential Dx/Diagnosis Provider Diagnosis: Acute bronchitis Discharge ED - Sign-Out/Discharge Documenting (check all that apply): Patient Departure All imaging exams completed and their final reports reviewed: No Studies - Discharge Plan Condition: Stable Disposition: HOME Prescriptions: Azithromycin 500 mg PO DAILY #3 tablet Patient Education Materials: Acute Bronchitis (ED) Referrals: Hector Echols MD [Primary Care Provider] - If Needed Additional Instructions: YOUR SYMPTOMS MAY BE VIRALLY MEDIATED BUT GIVEN THE LENGTH OF TIME YOU HAVE BEEN ILL WE WILL COVER YOU WITH ANTIBIOTICS. IF YOU START THE MEDICINE BE SURE TO TAKE IT FOR THE FULL COURSE. REST, HYDRATE, OTC MEDS NEEDED. SEEK FOLLOW- UP WITH YOUR PCP IF YOU ARE NOT IMPROVING OVER THE NEXT 1-2 WEEKS. - Billing Disposition and Condition Condition: STABLE Disposition: Home
== END 2019-01-01 13:23 | disposition home or self-care (01) ==
LOC: UCEAST 11:36
DX: J44.0 Chronic obstructive pulmonary disease with (acute) lower respiratory infection (principal); J20.9 Acute bronchitis, unspecified; J02.9 Acute pharyngitis, unspecified; R09.81 Nasal congestion; R53.83 Other fatigue; Z88.5 Allergy status to narcotic agent; Z91.09 Other allergy status, other than to drugs and biological substances; Z87.891 Personal history of nicotine dependence
CPT/HCPCS: 99212; A9270-GY; G0463

== ENCOUNTER 2019-04-29 15:43 | Inpatient (IN) | payer MEDICARE, BC ==
--- NOTE | 2019-04-29 16:39 | ED ---
Palpitations / Dysrhythmia - HPI Summary HPI Summary: Patient is a 68 year-old female arriving via ambulance to [facility] with isolated episode of fast palpitations and chest pain around 1400 this afternoon lasting for a few minutes. She reports that she had been at rest reading a book when she suddenly felt her heart racing with chest pain. The pain did not radiate into her arms, back, or jaw. The chest pain lasted for a few minutes, and the palpitations resolved as she arrived to the ED. She notes that she was diagnosed with bronchitis last week and has been experienced fevers up to 102F, chills, sweats, productive cough with green sputum. She was placed on Azithromycin and finished the course four days ago. She denies any erythema of eyes, sore throat, shortness of breath, abdominal pain, nausea, vomiting, dysuria, hematuria, myalgia, edema, rash, or dizziness. No recent travel or known exposures to anyone sick. She is not in any pain now. Past medical history includes thyroid disease, asthma, COPD, osteoporosis, scoliosis, anxiety , depression, multiple surgeries in the right leg. Family history of blood clots and cardiac disease in mother. Former smoker, no alcohol use, no substance use. Medications reviewed. Allergies noted. - History of Current Complaint Chief Complaint: EDDysrhythmPalp Time Seen by Provider: 04/29/19 15:53 Hx Obtained From: Patient Onset/Duration: Lasting Minutes, Resolved Timing: Constant Severity Initially: Severe Severity Currently: None Character: Fast Aggravating: Nothing Alleviating: Nothing Associated Signs & Symptoms: Chest Pain - Allergy/Home Medications Allergies/Adverse Reactions: Allergies Allergy/AdvReac Type Severity Reaction Status Date / Time codeine Allergy See Comment Verified 04/20/19 12:23 INSECT Allergy Unknown Uncoded 04/20/19 12:23 Reaction Details Home Medications: Home Medications Calcium Carbonate/Vitamin D3 [Calcium 600 + Vit D Tablet] 1 each PO DAILY [History Confirmed 04/29/19] Acetaminophen TAB* [Tylenol TAB*] 650 mg PO Q4H PRN 09/04/17 [History Confirmed 04/29/19] Multivitamins/Minerals TAB* [Theragran/minerals TAB*] 1 tab PO DAILY 09/04/17 [ History Confirmed 04/29/19] Budesonide/Formote 80/4.5(NF) [Symbicort 80/4.5 (NF)] 2 puff INH BID PRN [History Confirmed 04/29/19] Cyanocobalamin (Vitamin B-12) [Vitamin B-12] 500 mcg PO DAILY 12/07/18 [History Confirmed 04/29/19] Tiotropium CAPSULE (NF) [Spiriva CAPSULE (NF)] 1 dose PO DAILY 12/07/18 [ History Confirmed 04/29/19] DULoxetine DR CAP* [Cymbalta CAP*] 60 mg PO DAILY 04/29/19 [History Confirmed ] traZODone TAB* [Desyrel TAB*] 50 - 100 mg PO BEDTIME PRN 04/29/19 [History Confirmed 04/29/19] PMH/Surg Hx/FS Hx/Imm Hx Endocrine/Hematology History: Reports: Hx Thyroid Disease - GOITER STATES IS MONITORED YEARLY Denies: Hx Diabetes, Hx Anemia Cardiovascular History: Denies: Hx Hypertension Respiratory History: Reports: Hx Asthma - spiriva and symbicort, Hx Chronic Obstructive Pulmonary Disease (COPD) GI History: Denies: Hx Jaundice, Hx Ulcer Musculoskeletal History: Reports: Hx Osteoporosis, Hx Scoliosis, Other Musculoskeletal History - RIGHT LEG- SEVERAL SURGERIES- FROM ACCIDENT IN 1999 Sensory History: Reports: Hx Cataracts Denies: Hx Contacts or Glasses, Hx Hearing Aid Opthamlomology History: Reports: Hx Cataracts Denies: Hx Contacts or Glasses Neurological History: Denies: Hx Headaches, Other Neuro Impairments/Disorders Psychiatric History: Reports: Hx Anxiety - ON MEDICATION FOR, Hx Depression - ON MEDICATION FOR Denies: Hx Eating Disorder, Hx of Violent Episodes Against Others - Cancer History Hx Chemotherapy: No Hx Radiation Therapy: No - Surgical History Surgical History: Yes Surgery Procedure, Year, and Place: RIGHT HIP/FEMUR/KNEE- X 12 SURGERIES. LEFT HIP HEMIARTHROPLAST. TOTAL RIGHT HIP REPLACEMENT. RIGHT WRIST Hx Anesthesia Reactions: No Infectious Disease History: No Infectious Disease History: Denies: Hx Clostridium Difficile, Hx Hepatitis, Hx Human Immunodeficiency Virus (HIV), Hx of Known/Suspected MRSA, Hx Shingles, Hx Tuberculosis, Hx Known/ Suspected VRE, Hx Known/Suspected VRSA, History Other Infectious Disease, Traveled Outside the [place] in Last 30 Days - Family History Known Family History: Positive: Diabetes Negative: Cardiac Disease, Hypertension - Social History Alcohol Use: None Hx Substance Use: No Substance Use Type: Reports: None Hx Tobacco Use: Yes Smoking Status (MU): Former Smoker Type: Cigarettes Amount Used/How Often: 3 CIGARETTES PER DAY X 5 YEARS Have You Smoked in the Last Year: No Review of Systems Positive: Fever, Chills, Skin Diaphoresis Negative: Erythema Negative: Sore Throat Positive: Palpitations, Chest Pain Positive: Cough - productive, green sputum. Negative: Shortness Of Breath Negative: Abdominal Pain, Vomiting, Nausea Negative: dysuria, hematuria Negative: Myalgia, Edema Negative: Rash Neurological/Mental Status: Other - Negative: dizziness All Other Systems Reviewed And Are Negative: Yes Physical Exam - Summary Physical Exam Summary: Constitutional: Well-developed, Well-nourished, Alert. (-) Distressed Skin: Warm, Dry HENT: Normocephalic; Atraumatic Eyes: Conjunctiva normal Neck: Musculoskeletal ROM normal neck. (-) JVD, (-) Stridor, (-) Tracheal deviation Cardio: Rhythm regular, rate normal, Heart sounds normal; Intact distal pulses; The pedal pulses are 2+ and symmetric. Radial pulses are 2+ and symmetric. (-) Murmur Pulmonary/Chest wall: Effort normal. (-) Respiratory distress, (-) Wheezes, (-) Rales Abd: Soft, (-) tenderness, (-) Distension, (-) Guarding, (-) Rebound Musculoskeletal: (-) Edema Lymph: (-) Cervical adenopathy Neuro: Alert, Oriented x3, Tremulous Psych: Mood and affect Normal Triage Information Reviewed: Yes Vital Signs On Initial Exam: Initial Vitals Temp Pulse Resp BP Pulse Ox 98.4 F 105 16 142/83 90 04/29/19 15:44 04/29/19 15:44 04/29/19 15:44 04/29/19 15:44 04/29/19 15:44 Vital Signs Reviewed: Yes Procedures - Sedation Patient Received Moderate/Deep Sedation with Procedure: No Diagnostics - Vital Signs Vital Signs Temp Pulse Resp BP Pulse Ox 04/29/19 15:44 98.4 F 105 16 142/83 90 - Laboratory Result Diagrams: 04/29/19 19:26 04/29/19 19:26 Lab Statement: Any lab studies that have been ordered have been reviewed, and results considered in the medical decision making process. - Radiology CXR Radiology Interpretation Completed By: Radiologist Summary of Radiographic Findings: Impression: No radiographic evidence for acute cardiopulmonary abnormality on this portable chest x-ray. ED physician has reviewed this report. - CT Chest/Thorax CTA CT Interpretation Completed By: Radiologist Summary of CT Findings: Impression: No acute findings. No filling defects suspicious for pulmonary emboli are seen. There is no CT evidence of aortic dissection nor leakage. No aortic aneurysm is appreciated. Multiple thyroid nodules. Bilateral breast implants. Large hiatal hernia. ED physician has reviewed this report. Re-Evaluation - Re-Evaluation First Eval Re-Evaluation Time: 19:00 Change: Unchanged Comment: Patient still tremulous, declining admission Second Eval Re-Evaluation Time: 21:45 Comment: Patient's O2 at 93%, no chest pain, breathing is mediocre, still tremulous, HR 130 bpm Course/Dx - Course Course Of Treatment: Patient is a 68 year-old female arriving via ambulance after an episode of fast palpitations accompanied by chest tightness last for a few minutes before resolving on its own. Recent diagnosis of bronchitis with finished course of Azithromycin course but persistent productive cough with green sputum, fevers up to 102F, chills, and swears. No sore throat, shortness of breath, myalgias. Past medical history includes thyroid disease, asthma, COPD , anxiety. Patient is tremulous on physical exam. Patient placed on droplet precautions. IV access obtained. Blood work significant for MCV 100, MCH 34, MPV 6.4, anion gap 13, glucose 131, lactic acid 4.5. Serum alcohol 181. Influenza A and B are negative. Patient received fluids, Zofran, Ativan. Chest XR is negative for acute pulmonary abnormality. Chest/Thorax CTA is negative for PE, aortic dissection, or leakage, but is shows multiple thyroid nodules and large hiatal hernia. I spoke with Dr. Eli from the hospitalist services, and he accepts the patient for admission. Patient agreeable with plan. 35 MINUTES CRITICAL CARE TIME. - Diagnoses Provider Diagnoses: Acute bronchitis, Alcohol withdrawal, Lactic acidosis - Physician Notifications Discussed Care Of Patient With: Fantasma Eli - hospitalist Time Discussed With Above Provider: 22:20 Instructed by Provider To: Other - I discussed the patient's case with Dr. Eli, and he accepts the patient for admission. - Critical Care Time Critical Care Time: 30-74 min - 35 minutes Discharge ED - Sign-Out/Discharge Documenting (check all that apply): Patient Departure - Patient accepted for admission by Dr. Eli. - Discharge Plan Condition: Stable Disposition: ADMITTED TO [facility] Referrals: Hector Echols MD [Primary Care Provider] - - Attestation Statements Document Initiated by Scribe: Yes Documenting Scribe: Elise Saucedo Provider For Whom Scribe is Documenting (Include Credential): Jed Hood MD Scribe Attestation: Elise Lee, scribed for Jed Hood MD on 04/29/19 at 5535. Status of Scribe Document: Ready
--- OUTSIDE RECORDS SUMMARY | 2019-04-29 17:10 | XMS REPORT | Continuity of Care Document ---
:1950 External Reference #:[id number] Author Name Hector Echols M.D. Address [address] [place] [address] Care Team Providers Name Role Phone Enrique Burgos - Orthopaedic Surgery Care Team Information Spark Plug Tester Hector Echols MD - Family Medicine Care Team Information Spark Plug Tester [phone] [facility] - Counseling Care Team Information Spark Plug Tester Mukund Fierro - Orthopaedic Surgery Care Team Information Spark Plug Tester [facility] - Diagnostic Care Team Information Spark Plug Tester Radiology John Riddle MD - Rheumatology Care Team Information Spark Plug Tester [phone] Yuko Weaver - Gastroenterology Care Team Information Spark Plug Tester [phone] [facility] - Care Team Information Spark Plug Tester [phone] Gastroenterology Problems Active Problems Provider Date Goiter Hector Echols M.D. Onset: 02/07/2011 Osteoporosis Hector Echols M.D. Onset: 02/07/2011 Depressive disorder Hector Echols M.D. Onset: 02/07/2011 Mild intermittent asthma, uncomplicated Hector Echols M.D. Onset: 2016 Hyperlipidemia screening Hector Echols M.D. Onset: 01/27/2018 Mild intermittent asthma Hector Echols M.D. Onset: 09/17/2018 Non-toxic multinodular goiter Hector Echols M.D. Onset: 09/17/2018 Social History Type Date Description Comments Sex Unknown Tobacco Use Start: Unknown End: Unknown Former Cigarette Smoker quit 06/25 ETOH Use Has consumed alcohol in the past heavy Tobacco Use Start: Unknown End: Unknown Patient is a former smoker Allergies, Adverse Reactions, Alerts Active Allergies Reaction Severity Comments Date Codeine Nausea,Fainting 02/15/1998 Hydrocodone Bitartrate SYNCOPE 06/14/2008 Bee Sting 08/05/2009 Wasps 12/31/2013 Medications Active Medications SIG Qnty Indications Ordering Provider Date Ondansetron dissolve 1 tab 30tabs Hector BillyRon Echols, 03/22/2019 4mg under tongue M.D. Tablets Dispers four times a day hours as needed nausea Cefaclor 1 po tid 30caps Hector BillyRon Echols, 03/22/2019 250mg M.D. Capsules Duloxetine HCL Take 1 Capsule 90caps Hector BillyRon Echols, 11/24/2018 60mg By Mouth Once M.D. Caps DR Pate Daily Magnesium 1 PO qd Family Medicine 04/30/2013 500mg [facility] [place] Symbicort inhale 2 pufs 30.6units Hector Echols, 04/16/2012 twice a day M.D. 80-4.5mcg/Act Aerosol Trazodone HCL Take 1 To 2 60tabs Hector Echols, 02/07/2011 50mg Tablets By Mouth M.D. Tablets AT Bedtime as Needed Spiriva Handihaler Inhale Contents 30caps Hector BillyRon Echols, 10/19/2009 Of 1 Capsule By M.D. 18mcg Capsules Mouth Once Daily as Directed Epipen use as directed 1units Hector Echols, 08/05/2009 0.3mg/0.3ML M.D. Device Thiamine HCL 1 po qd 180tabs Hector BillyRon Echols, 11/13/2007 100mg M.D. Tablets Zinc 15 Hector FRon Echols, 66mg M.D. Tablets Multivitamin 1 po qd Unknown Calcium + D 1 by mouth every Unknown day Folic Acid 1 by mouth every Unknown 800mcg day Tablets Vitamin B12 1 by mouth every Unknown 100mcg day Tablets Evenity One injection Unknown monthly 105mg/1.17ML Soln Prefill Syringe Immunizations CPT Code Status Date Vaccine Lot # [id number] Given 12/20/2016 Pneumococcal Conjugate Vacc-13 [id number] 03061 Given 12/20/2016 High-Dose, Influenza Virus Vacccine-fluzone 65 and [id number] older 61575 Given 06/12/2015 Zostivax [id number] 13434 Given 01/09/2015 Influenza Vac, Quadrivalent, Slit Virus, Im [id number] Given 11/08/2013 DO Not Use Split Influenza Virus Vaccine [id number] 36581 Given 02/24/2012 High-Dose, Influenza Virus Vacccine-fluzone 65 and [id number] older 39513 Given 02/07/2011 Tdap Tetanus, W Pertussis [id number] 76110 Given 10/12/2009 Pneumococcal Immunization [id number] Vital Signs Date Vital Result Comment 03/22/2019 11:59am BP Systolic 152 mmHg BP Diastolic 96 mmHg Heart Rate 90 /min Body Temperature 97.5 F Respiratory Rate 16 /min Height 67 inches 5'7" Weight 140.00 lb BMI (Body Mass Index) 21.9 kg/m2 09/17/2018 3:38pm BP Systolic 140 mmHg BP Diastolic 92 mmHg Heart Rate 104 /min Body Temperature 99.2 F Respiratory Rate 16 /min Weight 130.00 lb Results Description No Information Available Procedures Date Code Description Status 02/25/2017 [id number] Mammogram Completed 02/18/2016 [id number] Bone Mineral Density Test Completed 06/14/2014 [id number] Mammogram Completed 05/14/2013 [id number] Mammogram Completed 06/19/2011 [id number] Mammogram Completed 06/11/2010 [id number] Mammogram Completed 07/04/2009 [id number] Colonoscopy Completed 05/22/2009 [id number] Mammogram Completed 06/28/2008 [id number] Mammogram Completed Medical Devices Description No Information Available Encounters Description No Information Available Assessments Date Code Description Provider 03/22/2019 R11.0 Nausea Hector Echols M.D. 03/22/2019 E04.2 Nontoxic multinodular goiter Hector Echols M.D. 03/22/2019 M81.0 Age-related osteoporosis without current Hector Echols M.D. pathological fracture 03/22/2019 I10 Essential (primary) hypertension Hector Echols M.D. 03/22/2019 R05 Cough Hector Echols M.D. Plan of Treatment Future Appointment(s):05/07/2019 10:20 am - Hector Echols M.D. at [facility] Yffxrt3203/22/2019 - Hector Echols M.D.R11.0 NauseaNew Labs:Free T4 ([facility]/ [facility]), Ordered: 03/22/19Comments:check lab workE04.2 Nontoxic multinodular goiterComments:to go to nodule bjvowvJ18.0 Age-related osteoporosis without current pathological fractureComments:to follow up with Dr Jaeger, on [id number] Essential (primary) hypertensionNew Labs:Comp Metabolic-ALL [facility], Ordered : 03/22/19Lipid Panel-[facility], Ordered: 03/22/19CBC Electronic-[facility], Ordered: 03/22/19Ua - Non Micro ([facility]), Ordered: 03/22/19TSH ([facility]/ [facility]), Ordered: 03/22/19Comments:blood pressure high, may need blood pressure [id number] CoughComments:start on ceclor, consider chest xrayAllNew Medication:Ondansetron 4 mg - dissolve 1 tab under tongue four times a day hours as needed nauseaCefaclor 250 mg - 1 po tidComments:has malaise and nausea , has a productive cough of green phlegm, she was on azithromycin recently forbronchitis with some improvement, she has noted that her blood pressure is elevatedFor now, she is going to get lab work in the near future, has appointment with Dr Jaeger for her osteoporosis , now on Evenity. Also has appointment with the thyroid nodule clinic in the near future. Has a mammogram planned in the near future . She was started on Ceclor 250 mg tid, she prefers to hold off on blood pressure medication for now, but agrees to return in one month for follow up. She was given ondansetron for her nausea Functional Status Description No Information Available Mental Status Description No Information Available Referrals Refer to Reason for Referral Status Appt Date Law, Stevie right thyroid nodule-needs biopsy jw Scheduled 03/26/[address] [place] [id number] [phone] [facility] [facility] multinodular goiter , nodules need FNA Scheduled 02/04/[address] [place] [address] [phone]
--- OUTSIDE RECORDS SUMMARY | 2019-04-29 17:10 | XMS REPORT | Continuity of Care Document ---
:1950 External Reference #:[id number] Author Name John Riddle M.D. (transmitted by agent of provider Rebeca Ervin) Address [address] [place] [id number] Care Team Providers Name Role Phone Hector Echols MD - Family Medicine Care Team Information Print Production Coordinator [phone] Problems Active Problems Provider Date Osteoporosis Amrik Scott M.D. Onset: 02/27/2012 Multiple joint pain Amrik Scott M.D. Onset: 04/27/2012 Degenerative joint disease involving multiple Amrik Scott M.D. Onset: 12/2012 joints Hypercalcemia Amrik Scott M.D. Onset: 04/27/2012 Liver function tests abnormal Amrik Scott M.D. Onset: 04/27/2012 Arthroplasty of knee Barbara Collazo M.D. Onset: 04/03/2018 Social History Type Date Description Comments Sex Unknown Tobacco Use Start: Unknown Former Cigarette Smoker End: Unknown Smoking Status Reviewed: 04/13/19 Former Cigarette Smoker ETOH Use Occasionally consumes 1 glass of wine per alcohol day Tobacco Use Start: Unknown Patient is a former quit 2008 End: Unknown smoker Recreational Drug Use Denies Drug Use Exercise Type/Frequency Exercises regularly PT 2 days per week. Pt has exercises at home Allergies, Adverse Reactions, Alerts Active Allergies Reaction Severity Comments Date Codeine 02/27/2012 Codeine nausea, fainting 06/21/2014 Hydrocodone nausea 06/21/2014 Bee Sting 06/21/2014 Medications Active Medications SIG Qnty Indications Ordering Date Provider Evenity Two consecutive 2.340ml Joe Jaeger MD 10/23/2018 injections (105 mg 105mg/1.17ML Soln each) for a total Prefill Syringe dose of 210 mg once monthly Prolia 60 mg sc q6mon 60mg John Riddle, 09/04/2017 60mg/ml Tristan.DRon Solution Spiriva Handihaler 1 inhalation po qam 3mon Unknown 18mcg Capsules Trazodone HCL 1 tablet at bedtime 30tabs Unknown 50mg as needed Tablets Zinc qd Unknown 100mg Tablets Symbicort 2 puffs twice a day Unknown rinse mouth after 80-4.5mcg/Act using Aerosol Calcium 600/Vitamin 1 by mouth daily Unknown D [id number] Tablets Multi Vitamin Daily 1 po qd Unknown Tablets Vitamin B-12 1 tablet daily Unknown Natural 500mcg Tablets Medications Administered in Office Medication SIG Qnty Indications Ordering Provider Date Prolia Injection, Denosumab, 1MG John Riddle M.D. 06/11/2018 Injection Prolia Injection, Denosumab, 1MG John Riddle M.D. 11/27/2017 Injection Prolia Injection, Mickeyosumab, 1MG John Riddle M.D. 05/29/2017 Injection Immunizations Description No Information Available Vital Signs Date Vital Result Comment 04/13/2019 11:54am Height 67 inches 5'7" Weight 140.38 lb Heart Rate 113 /min BP Systolic Sitting 132 mmHg BP Diastolic Sitting 70 mmHg Body Temperature 99.2 F Pain Level 3 O2 % BldC Oximetry 96 % BMI (Body Mass Index) 22.0 kg/m2 09/09/2018 2:04pm Height 67 inches 5'7" Weight 137.25 lb Heart Rate 120 /min BP Systolic 112 mmHg BP Diastolic 70 mmHg Pain Level 3 O2 % BldC Oximetry 94 % BMI (Body Mass Index) 21.5 kg/m2 Results Description No Information Available Procedures Date Code Description Status 02/25/2017 [id number] Mammogram Completed Medical Devices Description No Information Available Encounters Description No Information Available Assessments Date Code Description Provider 04/13/2019 M81.0 Age-related osteoporosis without current John Riddle M.D. pathological fractu Plan of Treatment No Information Available Functional Status Description No Information Available Mental Status Description No Information Available Referrals Description No Information Available
[2019-04-29] MEDS ORDERED: LORazepam TAB(*) 1 MG PO ONE (17:34)
[2019-04-29] MEDS ORDERED: Ondansetron ODT TAB* 4 MG SL ONE (17:43)
[2019-04-29 19:38] LABS: ABS Lymphocytes 1.7 10^3/ul (1.0-4.8); ABS Monocytes 0.5 10^3/ul (0-0.8); ABS Neutrophils 4.3 10^3/ul (1.5-7.7); Eosinophil % 0.5 %; Hematocrit 46 % (35-47); Hemoglobin 15.8 g/dL (12.0-16.0); Lymphocyte % 26.2 %; Mean Corpuscular HGB Conc 34 g/dL (31-36); Mean Corpuscular Hemoglobin 34 pg (27-31); Mean Corpuscular Volume 100 fL (80-97); Mean Platelet Volume 6.4 fL (7.4-10.4); Nucleated Red Blood Cells % 0.1; Platelet Count 251 10^3/uL (150-450); Red Blood Count 4.59 10^6 /uL (3.70-4.87); Red Cell Distribution Width 14 % (10-15); White Blood Count 6.6 10^3/uL (3.5-10.8)
[2019-04-29 19:39] LABS: Influenza A Molecular Negative (Negative); Influenza B Molecular Negative (Negative)
[2019-04-29 19:48] LABS: Activated Partial Thrombo Time 35.8 seconds (26.0-38.0); INR 0.85 (0.82-1.09)
[2019-04-29 20:03] LABS: Albumin 4.2 g/dL (3.2-5.2); Albumin/Globulin Ratio 1.9 (1-3); BUN/Creatinine Ratio 16.7 (8-20); Calcium 9.4 mg/dL (8.6-10.3); EGFR African American 136.3 (>60); EGFR Non-African American 112.6 (>60); Globulin 2.2 g/dL (2-4); Potassium 3.8 mmol/L (3.5-5.0); Total Bilirubin 0.4 mg/dL (0.2-1.0); Total Protein 6.4 g/dL (6.4-8.9)
[2019-04-29] MEDS ORDERED: LORazepam INJ* 2 MG/ML 1 ML VIAL IV PUSH ONE (20:06)
[2019-04-29] MEDS ORDERED: Lorazepam PYXIS KEY PRN (20:06)
[2019-04-29] MEDS ORDERED: Lorazepam PYXIS KEY ONE (20:21)
[2019-04-29] MEDS ORDERED: Iohexol 350* (CONTRAST) 500 ML MDV IV ONE (20:59)
[2019-04-29] MEDS ORDERED: NS 0.9% 1000 ML** 1,000 ML IV ONE (22:05)
[2019-04-29] MEDS ORDERED: traZODone TAB* 50 MG TAB PO PRN (23:22)
[2019-04-29] MEDS ORDERED: Mometasone/Formoter 100/5 MDI INH PRN (23:22)
[2019-04-29] MEDS ORDERED: Acetaminophen TAB* 325 MG PO PRN (23:22)
[2019-04-29] MEDS ORDERED: NS 0.9% 1000 ML** 1,000 ML IV SCH (23:45)
[2019-04-29] MEDS ORDERED: Al Hydrox/Mg Hydrox/Simet LIQ* 30 ML UDC PO PRN (23:52)
[2019-04-29] MEDS ORDERED: Ondansetron INJ* 2 MG/ML VIAL IV PRN (23:52)
[2019-04-30] MEDS ORDERED: Thiamine INJ* 100 MG/ML 2 ML VIAL IM ONE (02:46)
[2019-04-30] MEDS ORDERED: Acetaminophen TAB* 325 MG PO PRN (02:46)
[2019-04-30] MEDS ORDERED: Albuterol/Ipratropium NEB.SOL* Albuterol 2.5 MG/Ipratropium 0.5 MG 3 ML INH PRN (03:00)
[2019-04-30] MEDS: Diazepam TAB(*) 10 MG PO SCH ×3 (04:03→20:56)
[2019-04-30 06:19] LABS: ABS Lymphocytes 1.1 10^3/ul (1.0-4.8); ABS Monocytes 0.7 10^3/ul (0-0.8); ABS Neutrophils 5.4 10^3/ul (1.5-7.7); Eosinophil % 0.6 %; Hematocrit 40 % (35-47); Hemoglobin 13.7 g/dL (12.0-16.0); Lymphocyte % 15.1 %; Mean Corpuscular HGB Conc 34 g/dL (31-36); Mean Corpuscular Hemoglobin 34 pg (27-31); Mean Corpuscular Volume 100 fL (80-97); Mean Platelet Volume 6.6 fL (7.4-10.4); Platelet Count 188 10^3/uL (150-450); Red Cell Distribution Width 14 % (10-15); White Blood Count 7.3 10^3/uL (3.5-10.8)
[2019-04-30 06:31] LABS: BUN/Creatinine Ratio 19.1 (8-20); Calcium 8.7 mg/dL (8.6-10.3); EGFR African American 159.9 (>60); EGFR Non-African American 132.2 (>60); Potassium 3.7 mmol/L (3.5-5.0)
--- NOTE | 2019-04-30 06:45 | HP ---
HISTORY AND PHYSICAL: DATE OF ADMISSION: 04/29/19 HISTORY OF PRESENT ILLNESS: This 68-year-old female with chief complaint of palpitations, shortness of breath, which started around hours this afternoon and lasted for few minutes. There is associated chest discomfort. She said this is not chest pain, but a kind of discomfort. She said she was reading her books when suddenly she felt her heart racing with a discomfort. She said the pain did not radiate to anywhere and that is reproducible when she touches her chest, she felt it, that she said it lasted for some few minutes and resolved. Ambulance was called, but on her way to the ED, she said palpitations resolved as well. She was recently diagnosed with bronchitis and she had a history of COPD. Today, she has been experiencing fever to the level of 102 degree Fahrenheit with chills, sweats and productive cough with greenish sputum. She reported she was placed on azithromycin, which she finished 4 days ago. She denied nausea and vomiting. Denied recent travel. Also denied exposure to anyone that is sick. She states she is not in pain now, the discomfort has disappeared as well as the palpitations. The patient admitted that she drinks alcohol daily, 2 glasses of white wine. She suffers from intermittent withdrawal because she states she has been feeling shaky. On arrival to the ED, we noted that her lactic acid level was 4.5 and alcohol level 181. Flu was negative for A and B. PAST MEDICAL HISTORY: COPD, depression, anxiety, asthma, thyroid problem, alcohol misuse disorder, and former smoker. PAST SURGICAL HISTORY: Multiple surgeries on the right lower extremity, right hip total arthroplasty, left hip hemiarthroplasty. MEDICATIONS: Past medications: 1. Calcium carbonate with vitamin D3. 2. Multivitamins Theragran 1 tablet daily. 3. Symbicort 2 puffs INH b.i.d. 4. Cyanocobalamin 500 mcg daily. 5. Spiriva 1 dose p.o. daily. 6. Cymbalta 60 mg p.o. daily. 7. Trazodone 50 mg at bedtime. ALLERGIES: CODEINE and INSECT BITE. FAMILY HISTORY: Positive for diabetes. Negative for cardiac disease and hypertension. SOCIAL HISTORY: Drinks 2 glasses of white wine daily, former smoker. She quit several years ago. Denied use of illicit drugs. REVIEW OF SYSTEMS: Positive for fever, chills and diaphoresis. Negative for erythema, sore throat. Positive for palpitations and chest discomfort. Positive for cough productive of greenish sputum. Positive for shortness of breath. Negative abdominal pain, vomiting, nausea. Negative for dysuria and hematuria. Negative for myalgia, edema. Negative for rash. Neurological, negative dizziness. PHYSICAL EXAMINATION CONSTITUTIONAL: Well developed, well nourished, alert, not in any distress. VITAL SIGNS: Temperature 98.9, heart rate 101, respiratory rate 17, blood pressure 156/83, oxygen saturation on room air 95%. HEENT: Normocephalic atraumatic. Eyes: Conjunctivae, normal. NECK: Normal range of motion. No JVD. No stridor. No tracheal deviation. PULMONARY: No respiratory distress. Mild basilar wheezing. Decreased air entry. CARDIOVASCULAR: Regular rate and rhythm. S1, S2 heard. No murmurs, no friction, no rubs. ABDOMEN: Soft, nontender, nondistended. No guarding, no rebound. No palpable mass. Bowel sounds present in all 4 quadrants. MUSCULOSKELETAL: She moves all 4 extremities with 5/5 strength. No edema. No cyanosis. NEUROLOGIC: Alert, oriented x3. PSYCHIATRIC: Somewhat depressed. Normal affect, normal mood SKIN: Warm and dry. No rashes. DIAGNOSTIC STUDIES/LAB DATA: Hematology: WBC 6.6, RBC 4.59, hemoglobin 15.8, hematocrit 46, MCV 100, MCH 34, MCHC 34, RDW 14, platelet count 251, MPV 6.4. Percentage neutrophil 64.8, absolute neutrophil count 4.3. Chemistry: Sodium 142, potassium 3.8, chloride 104, carbon dioxide 25, anion gap 13, BUN 9, creatinine 0.54. Estimated GFR non- 112.6. BUN/creatinine ratio 16.7. Glucose 131. Lactic acid 4.5, calcium 9.4. Total bilirubin 0.40, AST 36, ALT 22, alkaline phosphatase 79. Troponin 0.00. Total protein 6.4, albumin 4.2, globulin 2.2, albumin globulin ratio 1.9. Toxicology, serum alcohol 181. Serology: Rapid influenza A and B negative. Coagulation studies : INR 0.85, aPTT 35.8. Chest CTA to rule out PE, no acute findings. No filling defects suspicious for pulmonary emboli are seen. There is no CT evidence of aortic dissection nor leakage. No aortic aneurysm is appreciated. Chest x-ray, impression: No radiologic evidence for acute cardiopulmonary abnormality on this portable chest x-ray. EKG: Sinus tachycardia with borderline prolonged QT interval. ASSESSMENT AND PLAN: The patient is a 68-year-old female who presented to the ED with chief complaint of palpitation, chest tightness, shortness of breath with recent diagnosis of bronchitis, who just finished a course of erythromycin , but she still has productive cough with greenish sputum and fever. The patient was admitted to the medical floor under telemetry observation because of the reported shortness of breath and chest tightness. Initial troponin negative. Second troponin negative. ADMITTING DIAGNOSES: 1. Chest pain. 2. Lactic acidosis. 3. Alcohol withdrawal. 4. Alcohol misuse disorder. 5. Chronic obstructive pulmonary disease. 6. Depression. 7. Anxiety. For the chest pain, nitro p.r.n. per protocol. Follow up cardiac enzymes. I will request for an echocardiogram to check for any cardiac function abnormalities, but I strongly believe the chest pain is noncardiac. For lactic acidosis, a repeat will be done in the next 3 to 4 hours. IV fluid. Encourage p.o. intake. Follow up trending of lactic acid. Alcohol withdrawal. The patient will be placed on CIWA protocol. Alcohol misuse disorder. The patient already counseled. We will continue to securities counselor the patient on misuse of alcohol. For COPD, DuoNeb as needed for shortness of breath and wheezing. The patient to continue with home inhaler including Symbicort. To continue with Spiriva and the rescue inhaler as needed for shortness of breath and wheezing. Anxiety and depression. The patient to continue with Cymbalta and trazodone at bedtime as needed. DVT prophylaxis. Lovenox. The patient will remain full code at this time. The patient is influenza A and B negative. Fluids and electrolytes, replete it as needed. Diet is regular. TIME SPENT: Time spent on this admission 60 minutes, greater than half of that time was spent face to face with the patient obtaining my history and physical. The other half of the time was spent going over the plan of care with the patient and implementing plan of care. Thank you very much for the opportunity to partake in the healthcare needs of this [place] lady. [id number]/[facility] #: [id number] JOSSELIN
[2019-04-30] MEDS: SPIRIVA Respimat* (tiotropium) 2.5 mcg/inh Inhaler INH SCH ×2 (08:21→16:17)
[2019-04-30] MEDS ORDERED: Perflutren Lipid Microsphere* 3 ML VIAL ONE (09:00)
[2019-04-30] MEDS ORDERED: Multivitamins/Minerals TAB PO SCH (09:00)
[2019-04-30] MEDS: DULoxetine DR CAP* 60 MG CAP.DR PO SCH (10:13)
[2019-04-30] MEDS: Cyanocobalamin TAB* 500 MCG PO SCH (10:13)
[2019-04-30] MEDS: Calcium/Vitamin D TAB 250/125* TAB PO SCH (10:13)
[2019-04-30] MEDS: Folic Acid TAB* 1 MG PO SCH (10:13)
[2019-04-30] MEDS: Thiamine TAB* 100 MG TAB PO SCH (10:14)
[2019-04-30] MEDS: Multivitamins/Minerals TAB PO SCH (10:14)
[2019-04-30] MEDS: Docusate CAP* 100 MG PO SCH ×2 (10:14→20:55)
[2019-04-30] MEDS: Enoxaparin(*) 40 MG/0.4 ML SYR SUBCUT SCH (10:17)
--- NOTE | 2019-04-30 11:09 | ECHO ---
*[facility]* [place] [address] Fax #: [phone] Transthoracic Echocardiogram Patient: Nayely Larsen : 1950 Study Date: 04/30/2019 Age: 68 Gender: F HR: 92 bpm Height: 65 in /165.1 cm BSA: 1.7 m^2 Weight: 139.7 lb /63.5 kg BMI: 23.3 kg/m^2 *Corporate Recycling Manager: * Yana Ann RDCS RN *Referring Physician: * Fantasma Eli *Reading Physician: * Selene Segura MD Indications: SOB. History: Chronic obstructive pulmonary disease. ETOH use. Risk factors: Former tobacco use. Conclusions Summary: - Left ventricle: The cavity size is normal. Wall thickness is mildly increased. Systolic function is normal. The estimated ejection fraction is 55-60%. Wall motion is normal; there are no regional wall motion abnormalities. - Right atrium: Not well visualized. There is an echodense area that appears to be associated with the atrial septum measurung 1.1 cm x 1.3 cm seen in the A4C view. Possible in the differential lipomateous hypertrophy. - Mitral valve: There is no significant regurgitation. - C/t 04/04/2008, the echodense area associated with the intact atrial septum was not mentioned then. Study data: Transthoracic echocardiogram. Procedure: Transthoracic echocardiography was performed. Image quality was fair. The study was technically limited due to COPD, smoking history, and breast implant. Intravenous Definity 3 ml was administered to enhance imaging. Complete 2D, spectral Doppler, and color flow Doppler. Location: Bedside. Patient status: Inpatient. Patient room number: 443-02. Rhythm: Normal sinus rhythm. Findings Left ventricle: The cavity size is normal. Wall thickness is mildly increased. Systolic function is normal. The estimated ejection fraction is 55-60%. Wall motion is normal; there are no regional wall motion abnormalities. There is no consistent Doppler evidence of clinically significant diastolic dysfunction. Right ventricle: The cavity size is normal. Systolic function is normal. Left atrium: The atrium is normal in size. Right atrium: Not well visualized. There is an echodense area that appears to be associated with the atrial septum measurung 1.1 cm x 1.3 cm seen in the A4C view. Mitral valve: The leaflets are mildly thickened. There is no evidence of stenosis. There is no significant regurgitation. Aortic valve: Not well visualized. The leaflets are mildly thickened. There is no evidence of stenosis. There is no significant regurgitation. Tricuspid valve: The leaflets are normal thickness. There is no significant regurgitation. Pulmonic valve: Not well visualized. Aorta: Aortic root: The aortic root is not dilated. Ascending aorta: The ascending aorta is not dilated. Aortic arch: The aortic arch is not dilated. Pericardium: There is no significant pericardial effusion. Pulmonary arteries: Not well visualized. Systemic veins: Inferior vena cava: The vessel is normal in size. There is normal respiratory change in the IVC dimension. Measurements Left ventricle Value Ref Aortic valve Value Ref ASHKAN, LAX 4.0 cm 3.8 - 5.2 Shalom diam, ED 2.1 cm ---- ESD, LAX 2.9 cm 2.2 - 3.5 Shalom diam/bsa, ED 1.2 cm/m^2 ---- FS, LAX 29 % 27 - 45 Peak v, S 1.3 m/sec ---- PW, ED (H) 1.2 cm 0.6 - 0.9 VTI, S 22.5 cm ---- IVS/PW, ED 0.99 Mean grad, S 4.0 mm Hg ---- E', lat shalom, TDI (L) 7.9 cm/sec >=10.0 Peak grad, S 6.0 mm Hg - --- E/e', lat shalom, 11 LVOT/AV, VTI ratio 0.73 ---- TDI E', med shalom, TDI 7.0 cm/sec >=7.0 Mitral valve Value R ef E/e', med shalom, 13 Peak E 0.88 m/sec ---- TDI Peak A 1.1 m/sec ---- E', avg, TDI 7.5 cm/sec Decel time 306 ms ---- E/e', avg, TDI 12 <=14 Peak grad, D 3.1 mm Hg - --- Peak E/A ratio 0.8 ---- LVOT Value Ref Peak jose, S 0.76 m/sec Pulmonic valve Value Ref VTI, S 16.4 cm Peak v, S 0.91 m/sec ---- Mean grad, S 1 mm Hg Peak grad, S 3.0 mm Hg ---- Ventricular septum Value Ref Aortic root Value Ref IVS, ED (H) 1.2 cm 0.6 - 0.9 Root diam 2.9 cm <3.9 Right ventricle Value Ref Ascending aorta Value Ref ASHKAN minor ax, A4C (H) 3.6 cm 1.9 - 3.5 AAo AP diam, S 3.0 cm ---- mid Aortic arch Value Ref Left atrium Value Ref Arch diam 2.4 cm ---- AP dim, ES 2.90 cm 2.70 - 3.80 Decending aorta Value Ref ML dim, A4C 5.0 cm Edmar peak jose 0.69 m/sec ---- SI dim, A4C 4.2 cm Vol/bsa, ES, 1-p 38 ml/m^2 11 - 40 Inferior vena cava Value Ref A4C Diam 1.7 cm ---- Vol/bsa, ES, A/L 29 ml/m^2 16 - 34 Right atrium Value Ref Estimated RAP 3 mm Hg Legend: (L) and (H) dl values outside specified reference range. Prepared and electronically signed by Selene Segura MD 04/30/2019 11:09
--- NOTE | 2019-04-30 16:00 | PN ---
Hospitalist Progress Note Date of Service: 04/30/19 Patient admitted earlier today with concern for palpitations and SOB. She had a serum ETOH level of 181 (endorses 2 glasses of wine a night). Denies any CP or SOB currently, as well as palpitations. WAM monitoring scores 3-5 AOx3 HEENT: Pupils equal and round, oral mucosa moist Neck: supple, full ROM Lungs: CTA CV: RRR Abd: soft, NTND, BS+ Reviewed pt's echocardiogram. Discussed with tree killer Dr. Segura who stated that lipamatous area noted on echocardiogram does not require any further follow up. This was conveyed to the patient. Continue current plan of care.
[2019-05-01] MEDS ORDERED: NS 0.9% 1000 ML** 1,000 ML IV SCH (00:45)
[2019-05-01] MEDS ORDERED: hydrALAZINE TAB* 10 MG PO ONE (01:00)
[2019-05-01] MEDS ORDERED: hydrALAZINE IV* 20 MG/ML VIAL IV SLOW PU STA (06:34)
[2019-05-01] MEDS: Docusate CAP* 100 MG PO SCH (07:50)
[2019-05-01] MEDS: Cyanocobalamin TAB* 500 MCG PO SCH (07:50)
[2019-05-01] MEDS: Multivitamins/Minerals TAB PO SCH (07:51)
[2019-05-01] MEDS: Diazepam TAB(*) 10 MG PO SCH (07:51)
[2019-05-01] MEDS: Folic Acid TAB* 1 MG PO SCH (07:51)
[2019-05-01] MEDS: DULoxetine DR CAP* 60 MG CAP.DR PO SCH (07:51)
[2019-05-01] MEDS: Thiamine TAB* 100 MG TAB PO SCH (07:51)
[2019-05-01] MEDS: Calcium/Vitamin D TAB 250/125* TAB PO SCH (07:51)
[2019-05-01] MEDS: Enoxaparin(*) 40 MG/0.4 ML SYR SUBCUT SCH (07:52)
--- NOTE | 2019-05-01 08:45 | PN ---
Subjective Date of Service: 05/01/19 Objective Active Medications: Acetaminophen (Tylenol Tab*) 650 mg PO Q4H PRN PRN Reason: PAIN Al Hydrox/Mg Hydrox/Simethicone (Maalox Plus*) 30 ml PO Q6H PRN PRN Reason: INDIGESTION Albuterol/Ipratropium (Duoneb (Albuterol 2.5 Mg/Ipratropium 0.5 Mg)) 1 neb INH Q4H PRN PRN Reason: SOB/WHEEZING Calcium/Vitamin D (Oscal D Tab 250/125*) 2 tab PO DAILY [facility] Last Admin: 05/01/19 07:51 Dose: 2 tab Cyanocobalamin (Vitamin B12 Tab*) 500 mcg PO DAILY [facility] Last Admin: 05/01/19 07:50 Dose: 500 mcg Diazepam (Valium Tab(*)) 10 mg PO Q12H [facility]; Taper Stop: 05/02/19 23:59 Last Admin: 05/01/19 07:51 Dose: 10 mg Docusate Sodium (Colace Cap*) 100 mg PO BID [facility] Last Admin: 05/01/19 07:50 Dose: Not Given Duloxetine HCl (Cymbalta Cap*) 60 mg PO DAILY [facility] Last Admin: 05/01/19 07:51 Dose: 60 mg Enoxaparin Sodium (Lovenox(*)) 40 mg SUBCUT Q24H [facility] Last Admin: 05/01/19 07:52 Dose: 40 mg Folic Acid (Folvite Tab*) 1 mg PO DAILY [facility] Last Admin: 05/01/19 07:51 Dose: 1 mg Metoprolol Tartrate (Lopressor Tab*) 25 mg PO DAILY [facility] Mometasone Furoate/Formoterol Fumar (Dulera 100/5 Mdi*) 2 puff INH BID PRN PRN Reason: SHORTNESS OF BREATH Multivitamins/Minerals (Theragran/Minerals Tab*) 1 tab PO DAILY [facility] Last Admin: 05/01/19 07:51 Dose: 1 tab Ondansetron HCl (Zofran Inj*) 4 mg IV Q4H PRN PRN Reason: NAUSEA/VOMITING Thiamine HCl (Vitamin B-1 Tab*) 100 mg PO DAILY [facility] Last Admin: 05/01/19 07:51 Dose: 100 mg Tiotropium [place] (Spiriva Respimat 2.5 Mcg) 2 puff INH DAILY [facility] Last Admin: 04/30/19 16:17 Dose: 2 puff Trazodone HCl (Desyrel Tab*) 50 mg PO BEDTIME PRN PRN Reason: SLEEP Last Admin: 04/30/19 23:50 Dose: 50 mg Vital Signs - 8 hr 05/01/19 05/01/19 05/01/19 01:00 02:05 04:00 Temperature 98.0 F 98.1 F Pulse Rate 92 91 96 Respiratory 16 16 Rate Blood Pressure 163/101 147/88 154/94 (mmHg) O2 Sat by Pulse 94 93 Oximetry 05/01/19 05/01/19 05/01/19 06:15 06:16 06:45 Temperature 97.8 F Pulse Rate 93 Respiratory 18 18 Rate Blood Pressure 166/97 144/83 (mmHg) O2 Sat by Pulse 92 Oximetry 05/01/19 05/01/19 07:51 08:00 Temperature Pulse Rate Respiratory 20 20 Rate Blood Pressure (mmHg) O2 Sat by Pulse Oximetry Oxygen Devices in Use Now: None Result Diagrams: 04/30/19 05:53 04/30/19 05:53 Microbiology and Other Data: Microbiology 04/29/19 19:26 Aerobic Blood Culture - Preliminary Blood Venous No Growth Day 1 Anaerobic Blood Culture - Preliminary No Growth Day 1 04/29/19 19:26 Aerobic Blood Culture - Preliminary Blood Venous No Growth Day 1 Anaerobic Blood Culture - Preliminary No Growth Day 1 Assess/Plan/Problems-Billing Assessment:
[2019-05-01] MEDS ORDERED: Metoprolol Tartrate TAB* 25 MG PO SCH ×2 (09:00→21:00)
[2019-05-01] MEDS ORDERED: Mometasone/Formoter 100/5 MDI INH SCH (10:00)
[2019-05-01] MEDS: SPIRIVA Respimat* (tiotropium) 2.5 mcg/inh Inhaler INH SCH (10:25)
[2019-05-01 16:07] VITALS: BP 150/92
[2019-05-01] MEDS ORDERED: Metoprolol Tartrate TAB* 25 MG PO ONE (16:08)
[2019-05-01] MEDS ORDERED: guaiFENesin ER TAB 600 MG PO SCH (16:09)
--- NOTE | 2019-05-01 21:54 | DS ---
CC: Dr. Hector Echols * MEDICINE DISCHARGE SUMMARY: DATE OF ADMISSION: 04/29/19 DATE OF DISCHARGE: 05/01/19 PROVIDER: Shar Lama NP. ATTENDING PHYSICIAN: Jeanette Rhodes DO * (dictated by Shar Lama NP) PRIMARY CARE PROVIDER: Dr. Hector Echols. PRIMARY DISCHARGE DIAGNOSES: 1. Alcohol use disorder with serum alcohol level 181 on admission and concern for alcohol withdrawal. 2. Chest pain. 3. Hypertension. SECONDARY DISCHARGE DIAGNOSES: 1. COPD. 2. Depression. 3. Anxiety. 4. Asthma. 5. Hyperthyroidism with goiter. 6. Former smoker. HOME MEDICATIONS AT DISCHARGE: The patient will continue her home: 1. Acetaminophen 650 mg q.4 hours p.r.n. 2. Vitamin B12 500 mcg daily. 3. Calcium with vitamin D3 one tab daily. 4. Multivitamin 1 tab daily[address] 5. Duloxetine DR 60 mg daily. 6. Symbicort 80/4.5 two puffs inhaled b.i.d. p.r.n. 7. Spiriva 1 capsule daily. 8. Trazodone 50 to 100 mg at bedtime p.r.n. I did discuss the patient my concern for elevated blood pressure. While she is here, she has been started on metoprolol 25 mg b.i.d., which she has been tolerating and I told her that in light of her chest pain and other conditions that will be reasonable to continue and she can follow up with Dr. Echols and determine if she likes to continue this medication. I did agree to sign a short script to the pharmacy for her to rock picker and she will follow up with Dr. Echols. HOSPITAL COURSE OF STAY: For full details, please refer to the H and P provided by Dr. Eli on 04/29/19. In summary, this is a 68-year-old female who presented to the ER with concern for palpitations and shortness of breath. She had recent diagnosis of bronchitis. She reported fever at home. There is concern for serum alcohol level, which was 181 on arrival. She was visibly tremulous and also noted to have lactic acid level of 4.5. She was started on alcohol withdrawal protocol. She was given IV fluids with resolution of lactic acid. She has continued to endorse chest congestion and chest pressure with negative troponins and no ST depressions seen in EKG. We had a concern for report of chest heaviness this afternoon on 05/01/19 with a plan to draw troponin; however, the patient stated that she wanted to go home and was refusing any further care. She removed all her telemetry leads. She did have an EKG, which does look normal. We did discuss that there is concern for cardiac disease and that she should have appropriate outpatient followup with stress testing as needed. She did have an echocardiogram here and that did show normal systolic function with estimated ejection fraction of 55% to 60%. Normal wall motion. There was an echodense area associated with atrial septum that may represent lipomatous hypertrophy. I discussed this with Dr. Segura who is the reading radiology supervisor who stated that there is no followup needed for this. I did also discuss with Ms. Larsen that I am concerned that she is in alcohol withdrawal, which can be a stress in the body in that going home could impose further threat to her health including further cardiac strain and potential myocardial infarction resulting in difficulty or as well as cardiac arrest , fall with subsequent injury. She verbalized understanding of this, but still wishes to go home. Again, she is encouraged to follow up with her PCP. DISPOSITION: Fair with concern for negative sequelae while leaving AMA. ACTIVITY: As tolerated. Would recommend no strenuous exercise. DIET: Heart-healthy diet. DISPOSITION: To home, AMA. PHYSICAL EXAMINATION: Last Vital Signs: Temp 97.2, pulse rate 80, respiratory rate 16, blood pressure 150/92, and O2 saturation is 98% on room air. HEENT: Head is atraumatic, normocephalic. Pupils are equal and round. Extraocular movements are intact. Oral mucosa is moist. Neck with normal range of motion. Lungs: Clear to auscultation. Scant wheezing noted. Cardiovascular: Regular rate and rhythm. Normal S1, S2. Heart sounds with no murmurs appreciated. No peripheral edema noted. Abdomen: Soft, nontender, nondistended with normoactive bowel sounds. Musculo-skeletal: She moves all 4 extremities with active range of motion. Neuro: She is alert and oriented x3. She maintains capacity to understand decisions. TIME SPENT: Approximately 40 minutes was spent on this discharge including time spent in counseling with the patient. Again, this is only a brief summary of the patient's hospital course of stay. For full details, please refer to the full medical record. If you have further questions or need further assistance, please feel free to contact me at [phone]. SHAR LAMA NP [id number]/[facility] #: [id number] JOSSELIN
== END 2019-05-01 17:26 | disposition left against medical advice (07) | DRG 313 ==
LOC: ED 15:43 → MEDTELE 23:52
PROVIDERS: ADMIT Family Medicine; ATTEND Internal Medicine
DX: R07.9 Chest pain, unspecified (principal); F10.239 Alcohol dependence with withdrawal, unspecified; E87.2 Acidosis; Y90.6 Blood alcohol level of 120-199 mg/100 ml; J44.9 Chronic obstructive pulmonary disease, unspecified; M81.0 Age-related osteoporosis without current pathological fracture; M41.9 Scoliosis, unspecified; F41.9 Anxiety disorder, unspecified; F32.9 Major depressive disorder, single episode, unspecified; Z96.641 Presence of right artificial hip joint; Z53.29 Procedure and treatment not carried out because of patient's decision for other reasons; I10 Essential (primary) hypertension; E05.00 Thyrotoxicosis with diffuse goiter without thyrotoxic crisis or storm; Z88.5 Allergy status to narcotic agent; Z91.048 Other nonmedicinal substance allergy status; Z87.891 Personal history of nicotine dependence; Z79.51 Long term (current) use of inhaled steroids; Z79.899 Other long term (current) drug therapy
CPT/HCPCS: 36415; 71045; 71275; 80048; 80053; 80320; 83605; 84484; 85025; 85610; 85730; 87040; 93005; 93306; 94640; 96374; 99284; A9270-GY; C8929; G0480; J0360; J1650; J2060; J3535; Q9967

== ENCOUNTER 2019-07-30 12:35 | Observation (INO) ==
[2019-07-30] MEDS ORDERED: NS 0.9% IVPB ONE (12:43)
[2019-07-30] MEDS ORDERED: NS 0.9% 1000 ml BAG 1,000 ML IV ONE ×2 (12:43→15:17)
[2019-07-30] MEDS ORDERED: Albuterol/Ipratropium NEB.SOL (2.5/0.5 MG) 3 ML NEB.SOLN INH ONE (12:43)
[2019-07-30] MEDS ORDERED: methylPREDNISolone 125 mg 2 ML VIAL IV ONE (12:43)
[2019-07-30] MEDS ORDERED: AZITHROMYCIN IVPB ONE (12:43)
[2019-07-30] MEDS ORDERED: Ondansetron 4 mg VIAL 2 MG/ML 2 ml VIAL IV ONE (12:43)
[2019-07-30] MEDS ORDERED: NS 0.9% 250 ml 250 ML ONE (13:17)
[2019-07-30 13:31] LABS: Hematocrit 42 % (35-47); Hemoglobin 14.6 g/dL (12.0-16.0); Mean Corpuscular HGB Conc 35 g/dL (31-36); Mean Corpuscular Hemoglobin 35 pg (27-31); Mean Corpuscular Volume 101 fL (80-97); Mean Platelet Volume 7.2 fL (7.4-10.4); Platelet Count 223 10^3/uL (150-450); Red Blood Count 4.17 10^6 /uL (3.70-4.87); Red Cell Distribution Width 14 % (10-15)
[2019-07-30 13:36] LABS: ABS Lymphocytes 0.9 10^3/ul (1.0-4.8); ABS Monocytes 0.5 10^3/ul (0-0.8); Lymphocyte % 10.7 %; Nucleated Red Blood Cells % 0.1
[2019-07-30 13:47] LABS: ALT 42 U/L (7-52); AST 48 U/L (13-39); Albumin 4.2 g/dL (3.2-5.2); Albumin/Globulin Ratio 1.8 (1-3); Alkaline Phosphatase 67 U/L (34-104); Anion Gap 7 mmol/L (2-11); BUN/Creatinine Ratio 14.3 (8-20); Blood Urea Nitrogen 8 mg/dL (6-24); C Reactive Protein < 1.00 mg/L (<8.01); CO2 Carbon Dioxide 29 mmol/L (22-32); Calcium 9.5 mg/dL (8.6-10.3); Chloride 105 mmol/L (101-111); EGFR African American 130.7 (>60); Globulin 2.4 g/dL (2-4); Glucose 111 mg/dL (70-100); Potassium 3.9 mmol/L (3.5-5.0); Sodium 141 mmol/L (135-145); Total Protein 6.6 g/dL (6.4-8.9)
[2019-07-30] MEDS ORDERED: LORazepam 1 mg TAB (*) PO ONE ×2 (13:58→14:55)
[2019-07-30] MEDS ORDERED: diPHENhydraMINE IV 50 MG/ML 1 ml VIAL (BENADRYL) IV ONE (14:17)
[2019-07-30 17:01] LABS: Alcohol, S < 10 mg/dL (<10)
[2019-07-30 19:00] LABS: Magnesium 1.5 mg/dL (1.9-2.7)
[2019-07-30] MEDS ORDERED: LORazepam 2 mg VIAL 1 ml IV PUSH SCH ×2 (19:00→22:12)
[2019-07-30] MEDS ORDERED: Magnesium Sulfate IV 3 GM in NS 0.9% 100 ml BAG 100 ML IVPB ONE (19:06)
[2019-07-30 19:51] LABS: TSH (Thyroid Stimulating Horm) 0.43 mcIU/mL (0.34-5.60)
[2019-07-30] MEDS: Mometasone/Formoter 100/5 MDI INH SCH (22:38)
[2019-07-30] MEDS: SPIRIVA Respimat (tiotropium) 2.5 mcg/inh Inhaler INH SCH (22:40)
[2019-07-30] MEDS: Heparin 5000 UNITS/ML VIAL(*) 1 ml vial SUBCUT SCH (22:45)
[2019-07-30] MEDS: Albuterol/Ipratropium NEB.SOL (2.5/0.5 MG) 3 ML NEB.SOLN INH SCH ×2 (22:52→23:08)
[2019-07-30] MEDS ORDERED: Albuterol/Ipratropium NEB.SOL (2.5/0.5 MG) 3 ML NEB.SOLN INH PRN (23:22)
[2019-07-31] MEDS: Heparin 5000 UNITS/ML VIAL(*) 1 ml vial SUBCUT SCH (05:43)
[2019-07-31 06:43] LABS: ABS Lymphocytes 0.6 10^3/ul (1.0-4.8); ABS Monocytes 0.4 10^3/ul (0-0.8); Hematocrit 39 % (35-47); Hemoglobin 13.4 g/dL (12.0-16.0); Lymphocyte % 6.2 %; Mean Corpuscular HGB Conc 34 g/dL (31-36); Mean Corpuscular Hemoglobin 35 pg (27-31); Mean Corpuscular Volume 101 fL (80-97); Mean Platelet Volume 6.9 fL (7.4-10.4); Platelet Count 182 10^3/uL (150-450); Red Blood Count 3.87 10^6 /uL (3.70-4.87); Red Cell Distribution Width 14 % (10-15); White Blood Count 8.9 10^3/uL (3.5-10.8)
[2019-07-31 06:59] LABS: BUN/Creatinine Ratio 15.7 (8-20); Calcium 9.1 mg/dL (8.6-10.3); EGFR African American 145.5 (>60); EGFR Non-African American 120.3 (>60); Magnesium 2.2 mg/dL (1.9-2.7); Potassium 3.7 mmol/L (3.5-5.0)
[2019-07-31] MEDS: Mometasone/Formoter 100/5 MDI INH SCH (07:30)
[2019-07-31] MEDS: SPIRIVA Respimat (tiotropium) 2.5 mcg/inh Inhaler INH SCH (07:30)
[2019-07-31] MEDS ORDERED: DULoxetine DR 60 mg CAP PO SCH ×2 (09:00)
[2019-07-31] MEDS ORDERED: Multivitamins/Minerals TAB PO SCH (09:00)
[2019-07-31] MEDS ORDERED: TIOTROPIUM BROMIDE PO SCH (09:00)
[2019-07-31 10:14] VITALS: BP 144/86
[2019-07-31] MEDS ORDERED: DOXYcycline 100 mg CAP (*) PO ONE (13:00)
[2019-07-31] MEDS ORDERED: Azithromycin IV(*) 250 MG in NS 0.9% 250 ml 250 ML IVPB SCH (16:00)
== END 2019-07-31 13:40 | disposition home or self-care (01) ==
LOC: ED 12:35 → MEDTELE 12:35 → ED 19:20
PROVIDERS: ADMIT Registered Nurse; ATTEND Internal Medicine

== ENCOUNTER 2020-04-06 09:02 | Observation (INO) ==
[2020-04-06] MEDS ORDERED: LORazepam 2 mg VIAL 1 ml IV PUSH ONE (09:39)
[2020-04-06] MEDS ORDERED: Lorazepam PYXIS KEY PRN (09:39)
[2020-04-06] MEDS ORDERED: Lorazepam PYXIS KEY ONE (09:48)
[2020-04-06 09:59] LABS: ABS Lymphocytes 1.1 10^3/ul (1.0-4.8); ABS Monocytes 0.5 10^3/ul (0-0.8); ABS Neutrophils 7.4 10^3/ul (1.5-7.7); Eosinophil % 0.2 %; Hematocrit 49 % (35-47); Hemoglobin 16.7 g/dL (12.0-16.0); Mean Corpuscular HGB Conc 34 g/dL (31-36); Mean Corpuscular Hemoglobin 34 pg (27-31); Mean Corpuscular Volume 101 fL (80-97); Mean Platelet Volume 6.9 fL (7.4-10.4); Platelet Count 209 10^3/uL (150-450); Red Blood Count 4.88 10^6 /uL (3.70-4.87); Red Cell Distribution Width 14 % (10-15)
[2020-04-06 10:17] LABS: ALT 22 U/L (7-52); AST 29 U/L (13-39); Albumin 4.6 g/dL (3.2-5.2); Albumin/Globulin Ratio 1.6 (1-3); Alkaline Phosphatase 60 U/L (34-104); Anion Gap 10 mmol/L (2-11); BUN/Creatinine Ratio 14.8 (8-20); Blood Urea Nitrogen 9 mg/dL (6-24); CO2 Carbon Dioxide 27 mmol/L (22-32); Calcium 9.7 mg/dL (8.6-10.3); Chloride 104 mmol/L (101-111); EGFR Non-African American 97.5 (>60); Globulin 2.8 g/dL (2-4); Glucose 111 mg/dL (70-100); Potassium 3.8 mmol/L (3.5-5.0); Sodium 141 mmol/L (135-145); Total Protein 7.4 g/dL (6.4-8.9)
[2020-04-06 10:38] LABS: Alcohol, S < 10 mg/dL (<10)
[2020-04-06] MEDS ORDERED: NS 0.9% 1000 ml BAG 1,000 ML IV SCH (15:00)
[2020-04-06 15:29] LABS: Folate 16.64 ng/mL (>3.99)
[2020-04-06 15:30] LABS: Vitamin B12 836 pg/mL (180-914)
[2020-04-06] MEDS ORDERED: Albuterol HFA INHALER 8 gm MDI INH PRN (17:21)
[2020-04-06] MEDS ORDERED: ACAMPROSATE 333 MG PO SCH (21:00)
[2020-04-07] MEDS: Mometasone/Formoter 100/5 MDI INH SCH ×2 (00:03→07:19)
[2020-04-07 06:06] LABS: ABS Eosinophils 0.1 10^3/ul (0-0.6); ABS Lymphocytes 1.3 10^3/ul (1.0-4.8); ABS Monocytes 0.8 10^3/ul (0-0.8); ABS Neutrophils 3.3 10^3/ul (1.5-7.7); Eosinophil % 1.3 %; Hematocrit 39 % (35-47); Hemoglobin 13.2 g/dL (12.0-16.0); Lymphocyte % 24.1 %; Mean Corpuscular HGB Conc 34 g/dL (31-36); Mean Corpuscular Hemoglobin 34 pg (27-31); Mean Corpuscular Volume 100 fL (80-97); Mean Platelet Volume 6.7 fL (7.4-10.4); Platelet Count 155 10^3/uL (150-450); Red Blood Count 3.87 10^6 /uL (3.70-4.87); Red Cell Distribution Width 14 % (10-15); White Blood Count 5.5 10^3/uL (3.5-10.8)
[2020-04-07 06:38] LABS: BUN/Creatinine Ratio 13.2 (8-20); Calcium 8.5 mg/dL (8.6-10.3); EGFR African American 138.8 (>60); EGFR Non-African American 114.7 (>60); Potassium 3.8 mmol/L (3.5-5.0)
[2020-04-07] MEDS ORDERED: DULoxetine DR 60 mg CAP PO SCH (09:00)
[2020-04-07] MEDS ORDERED: SPIRIVA Respimat (tiotropium) 2.5 mcg/inh Inhaler INH SCH (09:00)
[2020-04-07] MEDS ORDERED: Multivitamins/Minerals TAB PO SCH (09:00)
[2020-04-07 12:12] VITALS: BP 142/80
== END 2020-04-07 15:15 | disposition home or self-care (01) ==
LOC: ED 09:02 → MED 09:02
PROVIDERS: ADMIT Internal Medicine; ATTEND Internal Medicine

== ENCOUNTER 2021-10-26 15:54 | Inpatient (IN) ==
[2021-10-26] MEDS ORDERED: Morphine 4 MG/ML VIAL (1 ml) IV ONE (20:08)
[2021-10-26 20:44] LABS: ABS Eosinophils 0.1 10^3/ul (0-0.6); ABS Lymphocytes 1.4 10^3/ul (1.0-4.8); ABS Monocytes 0.8 10^3/ul (0-0.8); ABS Neutrophils 4.7 10^3/ul (1.5-7.7); Eosinophil % 1.1 %; Hematocrit 40 % (35-47); Hemoglobin 13.2 g/dL (12.0-16.0); Lymphocyte % 20.2 %; Mean Corpuscular HGB Conc 33 g/dL (31-36); Mean Corpuscular Hemoglobin 33 pg (27-31); Mean Corpuscular Volume 98 fL (80-97); Mean Platelet Volume 7.4 fL (7.4-10.4); Nucleated Red Blood Cells % 0.1; Platelet Count 155 10^3/uL (150-450); Red Blood Count 4.04 10^6 /uL (3.70-4.87); Red Cell Distribution Width 14 % (10-15)
[2021-10-26 20:53] LABS: Activated Partial Thrombo Time 31.3 seconds (26.0-38.0); INR 0.88 (0.89-1.11)
[2021-10-26 21:25] LABS: Potassium 3.7 mmol/L (3.5-5.0)
[2021-10-26 21:26] LABS: Albumin 3.7 g/dL (3.2-5.2); Albumin/Globulin Ratio 1.7 (1-3); Calcium 9.2 mg/dL (8.6-10.3); Globulin 2.2 g/dL (2-4); Total Bilirubin 0.7 mg/dL (0.2-1.0); Total Protein 5.9 g/dL (6.4-8.9); eGFR CKD-EPI 96.3 (>60)
[2021-10-27] MEDS ORDERED: Enoxaparin 40 MG/0.4 ML SYR SUBCUT ONE (01:07)
[2021-10-27] MEDS ORDERED: Morphine 2 MG/ML SYRINGE IV PRN (01:14)
[2021-10-27] MEDS ORDERED: Morphine 4 MG/ML VIAL (1 ml) IV PRN (01:15)
[2021-10-27] MEDS: Acetaminophen IV 1 GM/100ML 1,000 MG/100 ML BAG IV SCH ×2 (01:33→05:04)
[2021-10-27] MEDS ORDERED: Thiamine 100 MG/ML 2 ml VIAL (200 mg) IM ONE (01:46)
[2021-10-27] MEDS ORDERED: LORazepam 2 mg VIAL 1 ml IV PUSH SCH (02:00)
[2021-10-27] MEDS ORDERED: Lorazepam PYXIS KEY PRN (02:02)
[2021-10-27] MEDS ORDERED: DULoxetine DR 60 mg CAP PO SCH (09:00)
[2021-10-27] MEDS ORDERED: Multivitamins/Minerals TAB PO SCH (09:00)
[2021-10-27 11:30] VITALS: BP 125/77
== END 2021-10-27 16:00 | disposition home or self-care (01) | DRG 536 ==
LOC: ED 15:54 → EDHOLD 10-27 01:03 → SSU 10-27 04:23
PROVIDERS: ADMIT Internal Medicine; ATTEND Internal Medicine

== ENCOUNTER 2022-12-01 22:39 | Inpatient (IN) ==
[2022-12-01 23:54] LABS: ABS Lymphocytes 2.1 10^3/uL (1.0-4.8); ABS Monocytes 0.5 10^3/uL (0.0-0.9); ABS Neutrophils 2.3 10^3/uL (1.5-7.6); ABS Nucleated RBC 0.01 10^3/ul; Eosinophil % 0.4 %; Hematocrit 37.9 % (35-45); Hemoglobin 12.9 g/dL (11.5-14.3); Lymphocyte % 41.7 %; Mean Corpuscular Hemoglobin 32.6 pg (27-33); Mean Corpuscular Hgb Conc 33.9 g/dL (31-36); Mean Corpuscular Volume 96.3 fL (80-97); Mean Platelet Volume 6.4 fL (7.5-11.2); Nucleated Red Blood Cells % 0.1 %/100WBC (0.0-0.8); Platelet Count 226 10^3/uL (150-450); Red Blood Count 3.94 10^6/uL (3.63-4.92); Red Cell Distribution Width 17.8 % (12-17); White Blood Count 4.9 10^3/uL (3.8-11.8)
[2022-12-01 23:55] LABS: Urine Appearance Cloudy; Urine Bilirubin Negative (Negative); Urine Blood Negative (Negative); Urine Color Yellow; Urine Glucose Negative (Negative); Urine Ketones Negative (Negative); Urine Nitrite Negative (Negative); Urine Protein 1+(30 mg/dL) (Negative); Urine Specific Gravity 1.017 (1.002-1.030); Urine Urobilinogen Negative (Negative)
[2022-12-01 23:59] LABS: Urine Bacteria 1+ (Absent); Urine Red Blood Cell Trace(0-2/hpf) (Absent); Urine Squamous Epithelial Cell Present (Absent); Urine White Blood Cell 2+(11-20/hpf) (Absent)
[2022-12-02 00:09] LABS: Albumin 3.8 g/dL (3.2-5.2); Anion Gap 8 mmol/L (2-16); CO2 Carbon Dioxide 33 mmol/L (22-32); Calcium 9.4 mg/dL (8.6-10.3); Chloride 105 mmol/L (101-111); Potassium 3.6 mmol/L (3.5-5.0); Sodium 146 mmol/L (135-145)
[2022-12-02 00:14] LABS: Acetaminophen < 15 mcg/mL; Alcohol, S 361 mg/dL (<13); Salicylate < 2.50 mg/dL (<30)
[2022-12-02 00:15] LABS: ALT 11 U/L (7-52); AST 21 U/L (13-39); Albumin/Globulin Ratio 1.7 (1-3); Alkaline Phosphatase 82 U/L (35-149); Blood Urea Nitrogen 10 mg/dL (6-24); Creatinine, Serum 0.47 mg/dL (0.51-0.95); Globulin 2.3 g/dL (2-4); Glucose 96 mg/dL (70-100); Total Protein 6.1 g/dL (6.4-8.9); eGFR CKD-EPI 102.4 (>60)
[2022-12-02 00:53] LABS: Urine Benzodiazepine Screen None Detected (None Detect); Urine Cannabinoids Screen None Detected (None Detect); Urine Opiates Screen None Detected (None Detect)
[2022-12-02 01:19] LABS: TSH Ultra Thyroid Stim Horm 0.61 mcIU/mL (0.34-5.60)
[2022-12-02] MEDS ORDERED: Thiamine 100 MG/ML 2 ml VIAL (200 mg) IM ONE (07:25)
[2022-12-02] MEDS: LORazepam 2 mg VIAL 1 ml IV PUSH SCH ×2 (07:49→09:44)
[2022-12-02] MEDS ORDERED: Lactated Ringers 1000 ml BAG 1,000 ML IV ONE (07:50)
[2022-12-02] MEDS ORDERED: Albuterol HFA INHALER 8 gm MDI INH PRN (18:18)
[2022-12-02] MEDS ORDERED: EPINEPHrine PEN ADULT(NF) 0.3 MG SYRINGE IM PRN (18:53)
[2022-12-02] MEDS: Mometasone/Formoter 100/5 MDI INH SCH (20:32)
[2022-12-03 08:09] LABS: HDL Cholesterol 116.8 mg/dL
[2022-12-03] MEDS ORDERED: EPINEPHrine Anaphylaxis SYR CERTADOSE SYR KIT IM PRN (08:42)
[2022-12-03] MEDS: DULoxetine DR 60 mg CAP PO SCH (09:23)
[2022-12-03] MEDS: Multivitamins/Minerals TAB PO SCH (09:23)
[2022-12-03] MEDS: Mometasone/Formoter 100/5 MDI INH SCH ×2 (09:27→18:12)
[2022-12-04] MEDS: Multivitamins/Minerals TAB PO SCH (10:07)
[2022-12-04] MEDS: DULoxetine DR 60 mg CAP PO SCH (10:07)
[2022-12-04] MEDS: Mometasone/Formoter 100/5 MDI INH SCH (10:08)
[2022-12-04 10:46] VITALS: BP 128/77
== END 2022-12-04 17:40 | disposition home or self-care (01) | DRG 897 ==
LOC: ED 22:39 → EDHOLD 12-02 16:29 → BSU 12-02 16:41
PROVIDERS: ADMIT Psychiatry & Neurology Psychiatry; ATTEND Psychiatry & Neurology Psychiatry

== ENCOUNTER 2023-04-04 18:13 | Inpatient (IN) ==
[2023-04-04] MEDS: Acetaminophen IV 1 GM/100ML 1,000 MG/100 ML BAG IV ONE (20:25)
[2023-04-04 20:26] LABS: ABS Lymphocytes 1.6 10^3/uL (1.0-4.8); ABS Monocytes 0.7 10^3/uL (0.0-0.9); ABS Neutrophils 2.5 10^3/uL (1.5-7.6); ABS Nucleated RBC 0.01 10^3/ul; Eosinophil % 0.7 %; Hematocrit 28.9 % (35-45); Hemoglobin 9.7 g/dL (11.5-14.3); Lymphocyte % 32.4 %; Mean Corpuscular Hgb Conc 33.6 g/dL (31-36); Mean Corpuscular Volume 95.4 fL (80-97); Mean Platelet Volume 6.6 fL (7.5-11.2); Nucleated Red Blood Cells % 0.2 %/100WBC (0.0-0.8); Platelet Count 233 10^3/uL (150-450); Red Blood Count 3.03 10^6/uL (3.63-4.92); White Blood Count 4.8 10^3/uL (3.8-11.8)
[2023-04-04 20:42] LABS: Albumin 2.6 g/dL (3.2-5.2); Albumin/Globulin Ratio 1.2 (1-3); Calcium 8.2 mg/dL (8.6-10.3); Creatinine, Serum 0.44 mg/dL (0.51-0.95); Globulin 2.1 g/dL (2-4); Potassium 2.6 mmol/L (3.5-5.0); Total Bilirubin 0.3 mg/dL (0.2-1.0); Total Protein 4.7 g/dL (6.4-8.9); eGFR CKD-EPI 103.3 (>60)
[2023-04-04] MEDS: KCL 20 MEQ/100 ML IVPREMIX 20 MEQ/100 ML BAG IV SCH (21:06)
[2023-04-05 01:32] LABS: Magnesium 1.1 mg/dL (1.9-2.7)
[2023-04-05] MEDS ORDERED: Ondansetron 4 mg VIAL 2 MG/ML 2 ml VIAL IV PRN (02:28)
[2023-04-05] MEDS ORDERED: Albuterol HFA INHALER 8 gm MDI INH PRN (02:50)
[2023-04-05] MEDS: Thiamine 100 MG/ML 2 ml VIAL 100 MG, Folic Acid IV 1 MG, Multiple Vitamin IV ADULT 10 M... IV ONE (02:56)
[2023-04-05] MEDS: Thiamine 100 MG/ML 2 ml VIAL (200 mg) IM ONE (02:56)
[2023-04-05] MEDS ORDERED: D5W 1000 ml BAG 1,000 ML IV SCH (03:00)
[2023-04-05] MEDS: LORazepam 2 mg VIAL 1 ml IV PUSH SCH (03:06)
[2023-04-05 03:30] LABS: Osmolality Serum 363 mOsm/kg (275-295)
[2023-04-05 03:33] LABS: Anion Gap 8 mmol/L (2-16); Blood Urea Nitrogen 6 mg/dL (6-24); CO2 Carbon Dioxide 34 mmol/L (22-32); Calcium 7.8 mg/dL (8.6-10.3); Chloride 103 mmol/L (101-111); Creatinine, Serum 0.53 mg/dL (0.51-0.95); Glucose 108 mg/dL (70-100); Sodium 145 mmol/L (135-145); eGFR CKD-EPI 98.8 (>60)
[2023-04-05 04:10] LABS: C Reactive Protein 7.55 mg/L (<8.01)
[2023-04-05 05:12] LABS: Potassium Redraw 2.5 mmol/L (3.5-5.0)
[2023-04-05] MEDS: Magnesium Sulfate IV 0.5 GM/ML 2 ml VIAL (1 gm) IVPB ONE (05:37)
[2023-04-05] MEDS: D5LR 1000 ml BAG 1,000 ML IV SCH (05:44)
[2023-04-05] MEDS: Magnesium Sulfate 2 GM IV (Premix) IVPB SCH (05:45)
[2023-04-05 06:05] LABS: Phosphorus 3.6 mg/dL (2.5-5.0)
[2023-04-05] MEDS: SPIRIVA Respimat (tiotropium) 2.5 mcg/inh Inhaler INH SCH (07:14)
[2023-04-05] MEDS: Iohexol 300 (CONTRAST) 10 ML SDV IV ONE (07:40)
[2023-04-05] MEDS: Potassium Chloride LIQUID 20 MEQ/15 ML LIQUID PO ONE (08:00)
[2023-04-05] MEDS: DULoxetine DR 60 mg CAP PO SCH (08:08)
[2023-04-05] MEDS: Multivitamins/Minerals TAB PO SCH (08:08)
[2023-04-05 08:27] LABS: ABS Lymphocytes 1.1 10^3/uL (1.0-4.8); ABS Monocytes 0.5 10^3/uL (0.0-0.9); ABS Neutrophils 2.7 10^3/uL (1.5-7.6); ABS Nucleated RBC 0.01 10^3/ul; Eosinophil % 0.5 %; Hematocrit 28.3 % (35-45); Hemoglobin 9.6 g/dL (11.5-14.3); Mean Corpuscular Hemoglobin 32.2 pg (27-33); Mean Corpuscular Hgb Conc 33.9 g/dL (31-36); Mean Corpuscular Volume 94.9 fL (80-97); Mean Platelet Volume 6.4 fL (7.5-11.2); Nucleated Red Blood Cells % 0.1 %/100WBC (0.0-0.8); Platelet Count 214 10^3/uL (150-450); Red Blood Count 2.99 10^6/uL (3.63-4.92); Red Cell Distribution Width 19.6 % (12-17); White Blood Count 4.4 10^3/uL (3.8-11.8)
[2023-04-05 08:44] LABS: Calcium 7.6 mg/dL (8.6-10.3); Creatinine, Serum 0.57 mg/dL (0.51-0.95); Magnesium 1.6 mg/dL (1.9-2.7); Potassium 2.9 mmol/L (3.5-5.0); eGFR CKD-EPI 97.1 (>60)
[2023-04-05] MEDS ORDERED: Albuterol/Ipratropium NEB.SOL (2.5/0.5 MG) 3 ML NEB.SOLN INH PRN (12:08)
[2023-04-05] MEDS ORDERED: Albuterol/Ipratropium NEB.SOL (2.5/0.5 MG) 3 ML NEB.SOLN INH SCH (12:30)
[2023-04-05] MEDS: KCL 20 MEQ/100 ML IVPREMIX 20 MEQ/100 ML BAG IV SCH (12:32)
[2023-04-05] MEDS: Heparin 5000 UNITS/ML 1 mL VIAL IV PRN (12:55)
[2023-04-05] MEDS: Heparin DRIP 25,000 UNITS BAG 25,000 UNITS/250 ML BAG IV SCH (12:59)
[2023-04-05] MEDS: methylPREDNISolone SOD SUCC 40 mg/ml 1 ml VIAL IV SCH (13:04)
[2023-04-05 14:27] LABS: Ferritin 67.2 ng/mL (11-307)
[2023-04-05] MEDS: D5W 1000 ml BAG 1,000 ML IV SCH (14:48)
[2023-04-05 15:00] LABS: Calcium 7.2 mg/dL (8.6-10.3); Creatinine, Serum 0.63 mg/dL (0.51-0.95); Magnesium 2.3 mg/dL (1.9-2.7); Potassium 3.4 mmol/L (3.5-5.0); eGFR CKD-EPI 94.8 (>60)
[2023-04-05 16:25] LABS: High Sensitivity Troponin 1 Hr 7 pg/mL (<15)
[2023-04-05] MEDS: Potassium Chlor 20 meq TAB.ER PO ONE (17:36)
[2023-04-05] MEDS ORDERED: Lorazepam PYXIS KEY PRN (23:50)
[2023-04-06 02:43] LABS: Calcium 7.3 mg/dL (8.6-10.3); Creatinine, Serum 0.59 mg/dL (0.51-0.95); Magnesium 1.7 mg/dL (1.9-2.7); Potassium 3.8 mmol/L (3.5-5.0); eGFR CKD-EPI 96.3 (>60)
[2023-04-06 03:17] LABS: ABS Lymphocytes 0.4 10^3/uL (1.0-4.8); ABS Monocytes 0.1 10^3/uL (0.0-0.9); ABS Neutrophils 3.4 10^3/uL (1.5-7.6); ABS Nucleated RBC 0.01 10^3/ul; Hematocrit 28.5 % (35-45); Hemoglobin 9.4 g/dL (11.5-14.3); Lymphocyte % 9.7 %; Mean Corpuscular Hemoglobin 31.9 pg (27-33); Mean Corpuscular Hgb Conc 33.1 g/dL (31-36); Mean Corpuscular Volume 96.5 fL (80-97); Mean Platelet Volume 7.5 fL (7.5-11.2); Nucleated Red Blood Cells % 0.2 %/100WBC (0.0-0.8); Platelet Count 224 10^3/uL (150-450); Red Blood Count 2.95 10^6/uL (3.63-4.92); Red Cell Distribution Width 19.3 % (12-17); White Blood Count 3.9 10^3/uL (3.8-11.8)
[2023-04-06] MEDS: Magnesium Sulfate 2 gm BAG 2 GM/50 ML BAG IVPB ONE (07:32)
[2023-04-06 17:49] LABS: Urine Appearance Turbid; Urine Bilirubin Negative (Negative); Urine Blood Negative (Negative); Urine Color Yellow; Urine Glucose Negative (Negative); Urine Ketones Negative (Negative); Urine Nitrite 2+ (Negative); Urine Protein Negative (Negative); Urine Specific Gravity 1.013 (1.002-1.030); Urine Urobilinogen Negative (Negative); Urine pH 7.5 (5.0-8.0)
[2023-04-06 17:58] LABS: Urine Bacteria 1+ /HPF (Absent); Urine Red Blood Cell Trace(0-2/hpf) /HPF (0-Trace); Urine Squamous Epithelial Cell Present /HPF (Absent); Urine White Blood Cell 3+(>20/hpf) /HPF (0-Trace)
[2023-04-07] MEDS: guaiFENesin 100 mg/5 ml LIQ unit dose cup PO PRN (03:27)
[2023-04-07 06:44] LABS: ABS Lymphocytes 1.5 10^3/uL (1.0-4.8); ABS Monocytes 0.5 10^3/uL (0.0-0.9); ABS Neutrophils 5.1 10^3/uL (1.5-7.6); ABS Nucleated RBC 0.01 10^3/ul; Eosinophil % 0.1 %; Hematocrit 27.3 % (35-45); Hemoglobin 9.1 g/dL (11.5-14.3); Lymphocyte % 20.9 %; Mean Corpuscular Hemoglobin 32.2 pg (27-33); Mean Corpuscular Hgb Conc 33.3 g/dL (31-36); Mean Corpuscular Volume 96.5 fL (80-97); Nucleated Red Blood Cells % 0.1 %/100WBC (0.0-0.8); Platelet Count 221 10^3/uL (150-450); Red Blood Count 2.83 10^6/uL (3.63-4.92); Red Cell Distribution Width 19.5 % (12-17); White Blood Count 7.2 10^3/uL (3.8-11.8)
[2023-04-07 06:55] LABS: Calcium 7.7 mg/dL (8.6-10.3); Creatinine, Serum 0.55 mg/dL (0.51-0.95); Magnesium 1.6 mg/dL (1.9-2.7); Potassium 3.5 mmol/L (3.5-5.0); eGFR CKD-EPI 97.9 (>60)
[2023-04-07] MEDS: Magnesium Sulfate 2 gm BAG 2 GM/50 ML BAG IVPB ONE (08:54)
[2023-04-07 14:52] VITALS: BP 151/89
== END 2023-04-07 16:11 | disposition home or self-care (01) | DRG 371 ==
LOC: EDHOLD 18:13 → ED 18:13 → MED 04-05 05:25 → SUATTDRO 04-06 13:52
PROVIDERS: ADMIT Internal Medicine; ATTEND Student in an Organized Health Care Education/Training Program

== ENCOUNTER 2024-02-21 23:42 | Inpatient (IN) ==
[2024-02-22] MEDS ORDERED: Lorazepam PYXIS KEY PRN ×2 (00:23→01:18)
[2024-02-22] MEDS: Lactated Ringers 1000 ml BAG 1,000 ML IV ONE ×2 (00:31→01:36)
[2024-02-22] MEDS: LORazepam 2 mg VIAL 1 ml IV PUSH ONE ×2 (00:36→01:37)
[2024-02-22 00:50] LABS: ABS Lymphocytes 1.1 10^3/uL (1.0-4.8); ABS Monocytes 0.7 10^3/uL (0.0-0.9); ABS Neutrophils 8.2 10^3/uL (1.5-7.6); ABS Nucleated RBC 0.01 10^3/ul; Hematocrit 46.4 % (35-45); Hemoglobin 15.4 g/dL (11.5-14.3); Lymphocyte % 10.5 %; Mean Corpuscular Hemoglobin 29.5 pg (27-33); Mean Corpuscular Hgb Conc 33.3 g/dL (31-36); Mean Corpuscular Volume 88.5 fL (80-97); Mean Platelet Volume 7.7 fL (7.5-11.2); Nucleated Red Blood Cells % 0.1 %/100WBC (0.0-0.8); Platelet Count 201 10^3/uL (150-450); Red Blood Count 5.24 10^6/uL (3.63-4.92); Red Cell Distribution Width 17.3 % (12-17)
[2024-02-22 00:53] LABS: High Sens Troponin Baseline 17 pg/mL (<15)
[2024-02-22 00:58] LABS: Activated Partial Thrombo Time 35.4 seconds (26.0-38.0); INR 1.09 (0.85-1.14)
[2024-02-22 01:23] LABS: ALT 21 U/L (7-52); AST 36 U/L (13-39); Albumin 4.2 g/dL (3.5-5.7); Albumin/Globulin Ratio 1.7 (1-3); Alcohol, S < 13 mg/dL (<13); Alkaline Phosphatase 97 U/L (35-149); Anion Gap 16 mmol/L (2-16); Blood Urea Nitrogen 10 mg/dL (6-24); C Reactive Protein 14.31 mg/L (<8.01); CO2 Carbon Dioxide 26 mmol/L (22-32); Calcium 10.1 mg/dL (8.6-10.3); Chloride 97 mmol/L (101-111); Creatine Kinase 325 U/L (10-223); Creatinine, Serum 0.47 mg/dL (0.51-0.95); Globulin 2.5 g/dL (2-4); Glucose 98 mg/dL (70-100); Magnesium 1.3 mg/dL (1.9-2.7); Potassium 3.8 mmol/L (3.5-5.0); Sodium 139 mmol/L (135-145); Total Bilirubin 1.9 mg/dL (0.2-1.0); Total Protein 6.7 g/dL (6.4-8.9); eGFR CKD-EPI 101.1 (>60)
[2024-02-22] MEDS: Magnesium Sulfate 2 gm BAG 2 GM/50 ML BAG IVPB ONE (01:37)
[2024-02-22 02:38] LABS: High Sensitivity Troponin 1 Hr 16 pg/mL (<15)
[2024-02-22] MEDS: Iodixanol 320 (CONTRAST) 100 ML SDV IV ONE (04:34)
[2024-02-22] MEDS ORDERED: Albuterol HFA INHALER 8 gm MDI INH PRN (06:40)
[2024-02-22] MEDS: Metoprolol Tartrate 5 mg VIAL 5 ml VIAL (1 mg/ml) IV PRN ×2 (06:41→17:49)
[2024-02-22] MEDS: Furosemide 40 mg/4 ml IV VIAL IV ONE (06:43)
[2024-02-22] MEDS ORDERED: Sulfur Hexaflouride MICROSPHR 25 MG VIAL IV PRN (06:43)
[2024-02-22] MEDS: Thiamine 100 MG/ML 2 ml VIAL (200 mg) IM ONE (07:22)
[2024-02-22 07:57] LABS: Urine Appearance Clear; Urine Bilirubin Negative (Negative); Urine Blood Negative (Negative); Urine Color Colorless; Urine Glucose Negative (Negative); Urine Ketones Trace (Negative); Urine Nitrite Negative (Negative); Urine Protein Negative (Negative); Urine Specific Gravity 1.008 (1.002-1.030); Urine Urobilinogen Negative (Negative); Urine pH 7.5 (5.0-8.0)
[2024-02-22] MEDS: Multivitamins/Minerals TAB PO SCH (08:44)
[2024-02-22] MEDS: DULoxetine DR 60 mg CAP PO SCH (08:44)
[2024-02-22] MEDS: Mometasone/Formoter 100/5 MDI INH SCH (10:07)
[2024-02-23] MEDS ORDERED: Lactated Ringers 1000 ml BAG 1,000 ML IV SCH (03:00)
[2024-02-23] MEDS: Lactated Ringers 1000 ml BAG 500 ML IV SCH (03:09)
[2024-02-23] MEDS: Magnesium Sulf 4 GM/100 ML IV 4,000 MG/100 ML BAG IVPB ONE (03:29)
[2024-02-23] MEDS: dilTIAZem 30 MG TAB PO ONE (04:13)
[2024-02-23] MEDS: LORazepam 2 mg VIAL 1 ml IV PUSH SCH (04:26)
[2024-02-23 06:53] LABS: ABS Eosinophils 0.1 10^3/uL (0.0-0.5); ABS Lymphocytes 1.2 10^3/uL (1.0-4.8); ABS Monocytes 0.6 10^3/uL (0.0-0.9); ABS Nucleated RBC 0.01 10^3/ul; Eosinophil % 0.7 %; Hematocrit 38.8 % (35-45); Hemoglobin 12.9 g/dL (11.5-14.3); Lymphocyte % 15.7 %; Mean Corpuscular Hemoglobin 29.8 pg (27-33); Mean Corpuscular Hgb Conc 33.2 g/dL (31-36); Mean Corpuscular Volume 89.6 fL (80-97); Nucleated Red Blood Cells % 0.1 %/100WBC (0.0-0.8); Platelet Count 139 10^3/uL (150-450); Red Blood Count 4.33 10^6/uL (3.63-4.92); Red Cell Distribution Width 17.1 % (12-17)
[2024-02-23 07:44] LABS: Creatinine, Serum 0.52 mg/dL (0.51-0.95); Magnesium 2.5 mg/dL (1.9-2.7); eGFR CKD-EPI 98.7 (>60)
[2024-02-23] MEDS: KCL 20 MEQ/100 ML IVPREMIX 20 MEQ/100 ML BAG IV SCH (08:30)
[2024-02-23] MEDS: Potassium Chlor 20 meq TAB.ER PO ONE (08:31)
[2024-02-23] MEDS ORDERED: dilTIAZem 30 MG TAB PO SCH (11:00)
[2024-02-23] MEDS: Furosemide 40 mg/4 ml IV VIAL IV ONE (11:17)
[2024-02-23] MEDS: Nicotine PATCH 14 MG/24 HR PATCH TRANSDERM SCH (11:18)
[2024-02-23] MEDS: COVID VAC 24-25 (12+) (Moderna) Syringe 0.5 mL IM ONE (16:01)
[2024-02-23] MEDS: Metoprolol Tartrate 5 mg VIAL 5 ml VIAL (1 mg/ml) IV PRN (16:53)
[2024-02-23 23:53] VITALS: BP 134/90
== END 2024-02-24 01:43 | disposition left against medical advice (07) | DRG 310 ==
LOC: ED 23:42 → SUATTDRO 02-22 06:02 → EDHOLD 02-22 06:02 → MEDTELE 02-22 12:20
PROVIDERS: ADMIT Internal Medicine; ATTEND Internal Medicine